=== PATIENT | male | born 1985 | race African-American/Black ===

== ENCOUNTER 2022-05-09 10:04 | Inpatient (IN) ==
[2022-05-09] MEDS ORDERED: cefTRIAXone SODIUM 2,000 MG/70 ML BAG IV STA (10:47)
--- NOTE | 2022-05-09 10:47 | Emergency Department Note ---
Impression & Plan Preseptal cellulitis, Facial cellulitis, Abscess of face, Leukopenia ED Provider Note NAME: BRETT MC AGE: 36 SEX: M : 1985 ARRIVES VIA: Walk-In INFORMANT: Patient ED PROVIDER(S): Christopher Richey DO CHIEF COMPLAINT: facial swelling HPI: Patient is a 36-year-old male who presents to the ER for swelling under his right eye which has been present for the past 2 days. He notes it is red and tender. He notes he has a 2 cm by about 3 cm area of numbness right under that which feels a little bit different. He also has some on his left trapezius as well as by his sternocleidomastoid. Denies any focal weakness of his arms or legs. No chest pain or shortness of breath. He notes he feels very tired. He has had this once before in the past and was on antibiotics. No other exacerbating or remitting factors. PAST MEDICAL HISTORY:See Below PAST SURGICAL HISTORY:See Below FAMILY HISTORY:See Below SOCIAL HISTORY:See Below HOME MEDICATIONS:See Below ALLERGIES:See Below VITALS:See Below PHYSICAL EXAMINATION: GENERAL: Sitting up in bed, alert, well appearing, well nourished, no distress, non-toxic EYE EXAM: normal conjunctiva. PERRL and EOM's grossly intact. OROPHARYNX: mucous membranes are moist NECK: supple, no nuchal rigidity, no adenopathy, non-tender LUNGS: Clear to auscultation. Normal chest wall mechanics HEART: no murmurs, S1 normal and S2 normal ABDOMEN: abdomen soft, non-tender, normo-active bowel sounds, no masses, no rebound or guarding. UPPER EXTREMITIES: upper extremities are grossly normal. LOWER EXTREMITIES: No pitting edema. NEURO EXAM: Normal sensorium, cranial nerves II-XII intact, normal speech, no weakness of arms, no weakness of legs. No drift. Finger to nose intact. Gross sensation intact. MEDICAL DECISION MAKING: [Patient is a 36-year-old male who presents the ER for erythema and swelling under and around his right eye. Is been present for the past several days. He was referred in by the shelter. External records were reviewed. IV was established. Labs show a mild leukopenia at 4.6. No significant anemia. INR unremarkable. BMP along with LFTs bilirubin and troponin was negative. CT shows a preseptal cellulitis in combination with a abscess of the maxilla. This was discussed with Dr. Valencia who is agreeable to seeing the patient as an inpatient. Patient was given IV fluids and IV Zosyn. Discussed with Dr. Shoemaker for further management and treatment. Patient was updated bedside. Discussed with the guards as well. Patient was also given IV fluids and IV Toradol. Triage Nursing notes reviewed. Limited review of prior medical records performed Vital Signs: reviewed and remarkable for no significant abnormalities Differential diagnosis: Differential Diagnosis includes but is not limited to ischemic Stroke, hemorrhagic stroke, bells palsy, mass, neoplasm, migraine headache, seizure, subarachnoid hemorrhage, TIA, and transient global amnesia. ER treatment provided: See below Diagnostics interpreted by me include EKG and cardiac monitoring as listed below: -Cardiac Monitoring: An order was placed for continuous cardiac monitoring. The monitor shows a rate of 90 with sinus rhythm. -ECG: none -Laboratory studies:Interpreted by me as stated above in MDM and shown below. Imaging studies: Xrays: As interpreted by me:none CTs show: CT of the face, as well as angios of the head and neck shows a preseptal cellulitis in combination with a abscess in the maxilla Consultation(s): As described in MDM Procedures:none Critical Care: None Past Med/Surg History Medical History Active intravenous drug use Surgical History No history of previous surgery Social History Smoking Status: Never smoker Preferred Language: Pashto Feels Safe at Home: Yes Allergies Allergies Allergy/AdvReac Type Severity Reaction Status Date / Time No Known Allergies Allergy Verified 07/02/21 22:00 Home Meds Home Medications Medication Instructions Recorded Confirmed No Known Home Medications 01/20/22 01/20/22 Results & Data (ED) Vital Signs Vital Signs - 24 hr 05/09/22 10:10 05/09/22 14:00 Temperature 36.8 C Temperature Source Temporal Artery Scan Pulse Rate 91 H Pulse Rate [Right Finger] 73 Pulse Rhythm Regular Pulse Rhythm [Right Finger] Regular Pulse Strength [Right Finger] Normal Respiratory Rate 20 16 Respiratory Effort / Characteristics Non-Labored Spontaneous Non-Labored Respiratory Depth Normal Normal Respiratory Pattern Regular Regular Blood Pressure 138/86 Blood Pressure [Right Arm] 115/80 Blood Pressure Mean 103 Blood Pressure Mean [Right Arm] 91 Blood Pressure Position [Right Arm] Lying Pulse Oximetry 97 99 Oxygen Delivery Method Room Air Room Air Sepsis Recent Fever Within 48 Hours No Sepsis New/Unexplained Change in Mental Status No Sepsis Action Taken by Nursing No Action Required Laboratory Data 05/09/22 11:21 05/09/22 11:21 Lab Results 05/09/22 05/09/22 05/09/22 Range/Units 11:21 11:21 11:21 WBC 4.63 L (4.8-10.8) K/ul RBC 4.81 (4.70-6.10) M/uL Hgb 13.9 L (14.0-18.0) g/dl Hct 39.5 L (42.0-52.0) % MCV 82.1 (80.0-100.0) fL MCH 28.9 (25.0-34.0) pg MCHC 35.2 (32.0-36.0) g/dL RDW Std Deviation 41.0 (36.4-46.3) fL RDW Coeff of Jay Jay 13.7 (11.5-14.5) % Plt Count 188 (130-400) K/uL MPV 9.1 L (9.4-12.4) fL Immature Gran % (Auto) 0.2 % Neut % (Auto) 67.8 % Lymph % (Auto) 19.0 % Ramsey % (Auto) 10.2 % Eos % (Auto) 2.4 % Baso % (Auto) 0.4 % Neut # (Auto) 3.14 (1.40-6.50) K/uL Lymph # (Auto) 0.88 L (1.2-3.4) K/uL Ramsey # (Auto) 0.47 (0.11-0.59) K/uL Eos # (Auto) 0.11 (0-0.50) K/uL Baso # (Auto) 0.02 (0-0.2) K/uL Immature Gran # (Auto) 0.01 (0.01-0.20) K/uL PT 11.3 (9.0-12.0) Seconds INR 1.1 (0.9-1.1) APTT 26.6 (21.0-31.0) Seconds PTT Ratio 1.0 Sodium 138 (136-145) mmol/L Potassium 3.9 (3.5-5.1) mmol/L Chloride 104 (98-107) mmol/L Carbon Dioxide 28 (21-32) mmol/L Anion Gap 6 (3-11) BUN 19 (6-23) mg/dl Creatinine 1.03 (0.6-1.4) mg/dl Est Cr Clr Drug Dosing 87.9 ml/min Est GFR ( Amer) 109.3 ml/min Est GFR (Non-Af Amer) 94.3 ml/min BUN/Creatinine Ratio 18.4 (10-20) Glucose 67 L (70-99(Fasting)) mg/dl Calcium 9.7 (8.6-10.3) mg/dl Magnesium 2.0 (1.7-2.4) mg/dl Total Bilirubin 0.8 (0.2-1.0) mg/dl AST 20 (13-39) U/L ALT 20 (7-52) U/L Alkaline Phosphatase 72 (34-104) U/L Troponin I High Sens 2.9 (0-20) pg/ml Total Protein 7.5 (6.0-8.3) gm/dl Albumin 4.5 (3.4-5.0) gm/dl Globulin 3.0 (2.5-4.0) gm/dl Albumin/Globulin Ratio 1.5 (0.9-2) Administered Medications Discontinued Medications Ceftriaxone Sodium (Rocephin) 2,000 mg in 70 mls @ 140 mls/hr IV NOW STA Stop: 05/09/22 11:16 Last Infusion: 05/09/22 12:37 Dose: 0 mls/hr Documented By: Admin: 05/09/22 12:06 Dose: 140 mls/hr Documented By: TAO Piperacillin Sod/Tazobactam Sod (Zosyn) 4.5 gm in 120 mls @ 240 mls/hr IV NOW ONE Stop: 05/09/22 14:39 Last Admin: 05/09/22 14:24 Dose: 240 mls/hr Documented By: SHARON Ioversol (Optiray 320 500ml) 89 ml IV ONCE ONE Stop: 05/09/22 13:21 Last Admin: 05/09/22 13:21 Dose: 89 ml Documented By: YESICA Imaging Data Radiologist's Impression: Face CT 05/09/22 10:43 CT SCAN OF THE FACIAL BONES WITH IV CONTRAST CLINICAL HISTORY: Eye swelling. COMPARISON STUDY: No priors. TECHNIQUE: High-resolution CT scan of the facial bones is performed following the IV administration of 89 cc of Optiray 320. Images are reviewed in the axial, sagittal, and coronal planes. IV contrast was administered without complication. A dose lowering technique was utilized adhering to the principles of ALARA. FINDINGS: The skeletal structures are well mineralized. There is no evidence of facial bone fracture. The bony orbits are intact and the orbital contents are within normal limits. There is periorbital soft tissue edema seen bilaterally. No organized fluid collection is seen to indicate abscess. The zygomatic arches, nasal bones, and pterygoid plates are preserved. The maxilla and mandible are intact. There are no layering blood products within the paranasal sinuses. There is mild mucosal thickening within the maxillary antra. The remaining paranasal sinuses are clear. The mastoid air cells are well pneumatized. The visualized calvarium and upper cervical spine are maintained. Partially imaged brain parenchyma is within normal limits. There are numerous dental caries. Numerous periapical lucencies are present in both the maxilla and mandible. Several of these demonstrate overlying cortical breakthrough. Superficial and deep soft tissue tissue edema overlying the maxilla and mandible is consistent with cellulitis. A 10 mm periodontal abscess is seen superficial to the right maxilla on axial image #69. IMPRESSION: 1. No acute facial bone abnormality is seen. 2. Periorbital soft tissue edema seen bilaterally and suggests cellulitis. Correlate clinically. No periorbital fluid collection is seen to indicate abscess. 3. Severe periodontal disease as above with numerous dental caries and periapical lucencies. Several of these show overlying cortical breakthrough. Follow up with dentistry is recommended. 4. Significant cellulitis is seen overlying both the mandible and maxilla, with a 10 mm periodontal abscess overlying the right maxilla. 5. The bony orbits are intact and intraorbital contents are normal in appearance. ACT 112: Negative or not required by law. Electronically signed by: Yoel Panda M.D. 05/09/2022 2:[address] 05/09/22 10:[address] OF THE BRAIN; CT ANGIOGRAM OF THE BRAIN; CT ANGIOGRAM OF THE NECK CLINICAL HISTORY: Neurological deficit. Stroke like symptoms. COMPARISON STUDY: No priors. TECHNIQUE: Unenhanced axial CT scan of the brain is performed. Subsequently, following the IV administration of 89 of Optiray 320, CT angiogram of the head and neck was performed from the aortic arch to the vertex. Images are reviewed in the axial, sagittal, and coronal planes. 3-D MIPS images are created and assessed. IV contrast was administered without complication. All measurements were calculated based on NASCET criteria. A dose lowering technique was utilized adhering to the principles of ALARA. CT DOSE: 998.79 mGy.cm FINDINGS: Brain parenchyma: The brain parenchyma is normal in appearance. There is no hemorrhage, mass effect, or evidence of acute territorial ischemia by CT criteria. There is no evidence of enhancing mass lesion on the angiogram phase images. The ventricles, sulci, and cisterns are normal in configuration. Arshad- white matter differentiation is preserved. No extra-axial fluid collection is seen. Thoracic aorta: Visualized portions of the thoracic aorta are normal in caliber. The aortic arch demonstrates standard 3-vessel anatomy. Right carotid arterial system: The right common carotid artery is widely patent, as are the right internal and external carotid arteries. Left carotid arterial system: The left common carotid artery is widely patent, as are the left internal and external carotid arteries. Vertebral arteries: The vertebral arteries are widely patent bilaterally noting mild left-sided dominance. A focal fenestration is noted in the right vertebral artery at the level of C4 on image #215. No dissection is seen. Subclavian arteries: Widely patent bilaterally. Intracranial vasculature: The internal carotid arteries are patent at the skull base, as are the anterior and middle cerebral arteries bilaterally. The vertebro basilar system and posterior cerebral arteries are widely patent. The left vertebral artery is dominant. There are small bilateral posterior communicating arteries. There is no aneurysm, high-grade stenosis, or focal vessel cut off seen throughout the intracranial circulation. Jugular veins: Patent bilaterally. Dural sinuses: Patent. Lung apices: Partially visualized upper lobe lung parenchyma appears clear. Soft tissues: The visualized pharyngeal soft tissues are normal in appearance noting angiographic phase technique. The oropharyngeal airway appears widely patent. The salivary and thyroid glands are normal in appearance. No cervical lymphadenopathy is seen. Skeletal structures: The calvarium appears intact. The cervical spine is within normal limits. Orbits: The bony orbits are intact. Orbital contents are normal as visualized. Sinuses and mastoids: There is mild mucosal thickening within the maxillary antra. The remaining paranasal sinuses are clear. The mastoid air cells are well pneumatized. IMPRESSION: 1. There is no hemorrhage, mass effect, or evidence of acute territorial ischemia by CT criteria. 2. Unremarkable CT angiogram of the brain. 3. Unremarkable CT angiogram of the neck. ACT 112: Negative or not required by law. Electronically signed by: Yoel Panda M.D. 05/09/2022 1:41 PM Head CTA 05/09/22 10:[address] OF THE BRAIN; CT ANGIOGRAM OF THE BRAIN; CT ANGIOGRAM OF THE NECK CLINICAL HISTORY: Neurological deficit. Stroke like symptoms. COMPARISON STUDY: No priors. TECHNIQUE: Unenhanced axial CT scan of the brain is performed. Subsequently, following the IV administration of 89 of Optiray 320, CT angiogram of the head and neck was performed from the aortic arch to the vertex. Images are reviewed in the axial, sagittal, and coronal planes. 3-D MIPS images are created and assessed. IV contrast was administered without complication. All measurements were calculated based on NASCET criteria. A dose lowering technique was utilized adhering to the principles of ALARA. CT DOSE: 998.79 mGy.cm FINDINGS: Brain parenchyma: The brain parenchyma is normal in appearance. There is no hemorrhage, mass effect, or evidence of acute territorial ischemia by CT criteria. There is no evidence of enhancing mass lesion on the angiogram phase images. The ventricles, sulci, and cisterns are normal in configuration. Arshad- white matter differentiation is preserved. No extra-axial fluid collection is seen. Thoracic aorta: Visualized portions of the thoracic aorta are normal in caliber. The aortic arch demonstrates standard 3-vessel anatomy. Right carotid arterial system: The right common carotid artery is widely patent, as are the right internal and external carotid arteries. Left carotid arterial system: The left common carotid artery is widely patent, as are the left internal and external carotid arteries. Vertebral arteries: The vertebral arteries are widely patent bilaterally noting mild left-sided dominance. A focal fenestration is noted in the right vertebral artery at the level of C4 on image #215. No dissection is seen. Subclavian arteries: Widely patent bilaterally. Intracranial vasculature: The internal carotid arteries are patent at the skull base, as are the anterior and middle cerebral arteries bilaterally. The vertebrobasilar system and posterior cerebral arteries are widely patent. The left vertebral artery is dominant. There are small bilateral posterior communicating arteries. There is no aneurysm, high-grade stenosis, or focal vessel cut off seen throughout the intracranial circulation. Jugular veins: Patent bilaterally. Dural sinuses: Patent. Lung apices: Partially visualized upper lobe lung parenchyma appears clear. Soft tissues: The visualized pharyngeal soft tissues are normal in appearance noting angiographic phase technique. The oropharyngeal airway appears widely patent. The salivary and thyroid glands are normal in appearance. No cervical lymphadenopathy is seen. Skeletal structures: The calvarium appears intact. The cervical spine is within normal limits. Orbits: The bony orbits are intact. Orbital contents are normal as visualized. Sinuses and mastoids: There is mild mucosal thickening within the maxillary antra. The remaining paranasal sinuses are clear. The mastoid air cells are well pneumatized. IMPRESSION: 1. There is no hemorrhage, mass effect, or evidence of acute territorial ischemia by CT criteria. 2. Unremarkable CT angiogram of the brain. 3. Unremarkable CT angiogram of the neck. ACT 112: Negative or not required by law. Electronically signed by: Yoel Panda M.D. 05/09/2022 1:41 PM Neck CTA 05/09/22 10:[address] OF THE BRAIN; CT ANGIOGRAM OF THE BRAIN; CT ANGIOGRAM OF THE NECK CLINICAL HISTORY: Neurological deficit. Stroke like symptoms. COMPARISON STUDY: No priors. TECHNIQUE: Unenhanced axial CT scan of the brain is performed. Subsequently, following the IV administration of 89 of Optiray 320, CT angiogram of the head and neck was performed from the aortic arch to the vertex. Images are reviewed in the axial, sagittal, and coronal planes. 3-D MIPS images are created and assessed. IV contrast was administered without complication. All measurements were calculated based on NASCET criteria. A dose lowering technique was utilized adhering to the principles of ALARA. CT DOSE: 998.79 mGy.cm FINDINGS: Brain parenchyma: The brain parenchyma is normal in appearance. There is no hemorrhage, mass effect, or evidence of acute territorial ischemia by CT cri teria. There is no evidence of enhancing mass lesion on the angiogram phase images. The ventricles, sulci, and cisterns are normal in configuration. Arshad- white matter differentiation is preserved. No extra-axial fluid collection is seen. Thoracic aorta: Visualized portions of the thoracic aorta are normal in caliber. The aortic arch demonstrates standard 3-vessel anatomy. Right carotid arterial system: The right common carotid artery is widely patent, as are the right internal and external carotid arteries. Left carotid arterial system: The left common carotid artery is widely patent, as are the left internal and external carotid arteries. Vertebral arteries: The vertebral arteries are widely patent bilaterally noting mild left-sided dominance. A focal fenestration is noted in the right vertebral artery at the level of C4 on image #215. No dissection is seen. Subclavian arteries: Widely patent bilaterally. Intracranial vasculature: The internal carotid arteries are patent at the skull base, as are the anterior and middle cerebral arteries bilaterally. The vertebrobasilar system and posterior cerebral arteries are widely patent. The left vertebral artery is dominant. There are small bilateral posterior communicating arteries. There is no aneurysm, high-grade stenosis, or focal vessel cut off seen throughout the intracranial circulation. Jugular veins: Patent bilaterally. Dural sinuses: Patent. Lung apices: Partially visualized upper lobe lung parenchyma appears clear. Soft tissues: The visualized pharyngeal soft tissues are normal in appearance noting angiographic phase technique. The oropharyngeal airway appears widely patent. The salivary and thyroid glands are normal in appearance. No cervical lymphadenopathy is seen. Skeletal structures: The calvarium appears intact. The cervical spine is within normal limits. Orbits: The bony orbits are intact. Orbital contents are normal as visualized. Sinuses and mastoids: There is mild mucosal thickening within the maxillary antra. The remaining paranasal sinuses are clear. The mastoid air cells are well pneumatized. IMPRESSION: 1. There is no hemorrhage, mass effect, or evidence of acute territorial ischemia by CT criteria. 2. Unremarkable CT angiogram of the brain. 3. Unremarkable CT angiogram of the neck. ACT 112: Negative or not required by law. Electronically signed by: Yoel Panda M.D. 05/09/2022 1:41 PM Discharge Plan Visit Data Chief Complaint: Acosta's Palsy Symptoms Stated Complaint: RIGHTSIDE NUMBNESS,LOSS OF BLANCE, ARM NUMBNESS ED Provider: Christopher Richey Discharge Problem: Preseptal cellulitis, Facial cellulitis, Abscess of face, Leukopenia Forms Stand Alone Forms: [facility] Prescriptions Prescriptions: No Action No Known Home Medications Referrals Referrals: PCP,NO [Physician] -
[2022-05-09 12:02] LABS: Basophils # (auto) 0.02 K/uL (0-0.2); Basophils % (auto) 0.4 %; Eosinophils # (auto) 0.11 K/uL (0-0.50); Eosinophils % (auto) 2.4 %; Hematocrit (blood only) 39.5 % (42.0-52.0); Hemoglobin 13.9 g/dl (14.0-18.0); Immature Granulocytes # (auto) 0.01 K/uL (0.01-0.20); Immature Granulocytes % (auto) 0.2 %; Lymphocytes # (auto) 0.88 K/uL (1.2-3.4); Mean Corpuscular Hemoglobin 28.9 pg (25.0-34.0); Mean Corpuscular Hgb Conc 35.2 g/dL (32.0-36.0); Mean Corpuscular Volume 82.1 fL (80.0-100.0); Mean Platelet Volume 9.1 fL (9.4-12.4); Monocytes # (auto) 0.47 K/uL (0.11-0.59); Monocytes % (auto) 10.2 %; Neutrophils # (auto) 3.14 K/uL (1.40-6.50); Neutrophils % (auto) 67.8 %; Platelet Count 188 K/uL (130-400); RDW Coefficient of Variation 13.7 % (11.5-14.5); Red Blood Count 4.81 M/uL (4.70-6.10); White Blood Count 4.63 K/ul (4.8-10.8)
[2022-05-09 12:13] LABS: INR 1.1 (0.9-1.1); Partial Thromboplastin Time 26.6 Seconds (21.0-31.0); Prothrombin Time 11.3 Seconds (9.0-12.0)
--- NOTE | 2022-05-09 12:18 | Electrocardiogram Report ---
Test Reason : Blood Pressure : / mmHG Vent. Rate : 088 BPM Atrial Rate : 088 BPM P-R Int : 156 ms QRS Dur : 088 ms QT Int : 336 ms P-R-T Axes : 043 063 022 degrees QTc Int : 406 ms Normal sinus rhythm Normal ECG No previous ECGs available Confirmed by Thony Leonardo ([id number]) on 05/09/2022 12:18:06 PM Referred By: [facility] Confirmed By:Thony Leonardo
[2022-05-09 12:27] LABS: Troponin I High Sensitivity 2.9 pg/ml (0-20)
[2022-05-09 12:28] LABS: Albumin Level 4.5 gm/dl (3.4-5.0); Bilirubin,Total 0.8 mg/dl (0.2-1.0); Calcium 9.7 mg/dl (8.6-10.3); Potassium 3.9 mmol/L (3.5-5.1)
[2022-05-09 12:34] LABS: Albumin Globulin Ratio 1.5 (0.9-2); BUN Creatinine Ratio 18.4 (10-20); Creatinine Clr Calc Pharmacy 87.9 ml/min; Est GFR (African American) 109.3 ml/min; Est GFR (Non-African American) 94.3 ml/min; Total Protein 7.5 gm/dl (6.0-8.3)
[2022-05-09] MEDS ORDERED: OPTIRAY 320 500ml IV ONE (13:20)
--- NOTE | 2022-05-09 13:43 | CT Scan Report ---
UNENHANCED CT OF THE BRAIN; CT ANGIOGRAM OF THE BRAIN; CT ANGIOGRAM OF THE NECK CLINICAL HISTORY: Neurological deficit. Stroke like symptoms. COMPARISON STUDY: No priors. TECHNIQUE: Unenhanced axial CT scan of the brain is performed. Subsequently, following the IV adminis tration of 89 of Optiray 320, CT angiogram of the head and neck was performed from the aortic arch to the vertex. Images are reviewed in the axial, sagittal, and coronal planes. 3-D MIPS images are crea mj and assessed. IV contrast was administered without complication. All measurements were calculated based on NASCET criteria. A dose lowering technique was utilized adhering to the principles of CODIE [place]. CT DOSE: 998.79 mGy.cm FINDINGS: Brain parenchyma: The brain parenchyma is normal in appearance. There is no hemorrhage, mass effect, or evidence of acute territorial ischemia by CT criteria. There is no evidence of enhancing mass lesi on on the angiogram phase images. The ventricles, sulci, and cisterns are normal in configuration. Gr ay-white matter differentiation is preserved. No extra-axial fluid collection is seen. Thoracic aorta: Visualized portions of the thoracic aorta are normal in caliber. The aortic arch demo nstrates standard 3-vessel anatomy. Right carotid arterial system: The right common carotid artery is widely patent, as are the right int ernal and external carotid arteries. Left carotid arterial system: The left common carotid artery is widely patent, as are the left technical support internship al and external carotid arteries. Vertebral arteries: The vertebral arteries are widely patent bilaterally noting mild left-sided domin ance. A focal fenestration is noted in the right vertebral artery at the level of C4 on image #215. N o dissection is seen. Subclavian arteries: Widely patent bilaterally. Intracranial vasculature: The internal carotid arteries are patent at the skull base, as are the ante rior and middle cerebral arteries bilaterally. The vertebrobasilar system and posterior cerebral cade tabby are widely patent. The left vertebral artery is dominant. There are small bilateral posterior co mmunicating arteries. There is no aneurysm, high-grade stenosis, or focal vessel cut off seen through out the intracranial circulation. Jugular veins: Patent bilaterally. Dural sinuses: Patent. Lung apices: Partially visualized upper lobe lung parenchyma appears clear. Soft tissues: The visualized pharyngeal soft tissues are normal in appearance noting angiographic pha se technique. The oropharyngeal airway appears widely patent. The salivary and thyroid glands are nor mal in appearance. No cervical lymphadenopathy is seen. Skeletal structures: The calvarium appears intact. The cervical spine is within normal limits. Orbits: The bony orbits are intact. Orbital contents are normal as visualized. Sinuses and mastoids: There is mild mucosal thickening within the maxillary antra. The remaining para nasal sinuses are clear. The mastoid air cells are well pneumatized. IMPRESSION: 1. There is no hemorrhage, mass effect, or evidence of acute territorial ischemia by CT criteria. 2. Unremarkable CT angiogram of the brain. 3. Unremarkable CT angiogram of the neck. ACT 112: Negative or not required by law. Electronically signed by: Yoel Panda M.D. 05/09/2022 1:41 PM
--- NOTE | 2022-05-09 14:03 | CT Scan Report ---
CT SCAN OF THE FACIAL BONES WITH IV CONTRAST CLINICAL HISTORY: Eye swelling. COMPARISON STUDY: No priors. TECHNIQUE: High-resolution CT scan of the facial bones is performed following the IV administration of 89 cc of Optiray 320. Images are reviewed in the axial, sagittal, and coronal planes. IV contrast was administered without complication. A dose lowering technique was utilized adhering to the princi ples of ALARA. FINDINGS: The skeletal structures are well mineralized. There is no evidence of facial bone fracture. The bony orbits are intact and the orbital contents are within normal limits. There is periorbital s oft tissue edema seen bilaterally. No organized fluid collection is seen to indicate abscess. The zyg omatic arches, nasal bones, and pterygoid plates are preserved. The maxilla and mandible are intact. There are no layering blood products within the paranasal sinuses. There is mild mucosal thickening w ithin the maxillary antra. The remaining paranasal sinuses are clear. The mastoid air cells are well pneumatized. The visualized calvarium and upper cervical spine are maintained. Partially imaged brain parenchyma is within normal limits. There are numerous dental caries. Numerous periapical lucencies are present in both the maxilla and mandible. Several of these demonstrate overlying cortical breakth rough. Superficial and deep soft tissue tissue edema overlying the maxilla and mandible is consistent with cellulitis. A 10 mm periodontal abscess is seen superficial to the right maxilla on axial image #69. IMPRESSION: 1. No acute facial bone abnormality is seen. 2. Periorbital soft tissue edema seen bilaterally and suggests cellulitis. Correlate clinically. No p eriorbital fluid collection is seen to indicate abscess. 3. Severe periodontal disease as above with numerous dental caries and periapical lucencies. Several of these show overlying cortical breakthrough. Follow up with dentistry is recommended. 4. Significant cellulitis is seen overlying both the mandible and maxilla, with a 10 mm periodontal a bscess overlying the right maxilla. 5. The bony orbits are intact and intraorbital contents are normal in appearance. ACT 112: Negative or not required by law. Electronically signed by: Yoel Panda M.D. 05/09/2022 2:02 PM
[2022-05-09] MEDS ORDERED: PIPERACILLIN/TAZOBACTAM 4.5 GM/120 ML BAG IV ONE (14:10)
--- NOTE | 2022-05-09 14:32 | History & Physical Report ---
Date of Service May 09, 2022 Assessment & Plan (1) Preseptal cellulitis: Plan: Preseptal/periorbital cellulitis; maxillary abscess 2 days of facial swelling and warmth Poor dentition - CTA of the head and neck: No acute findings. Unremarkable angiograms. - CTface: No bony abnormality. Periorbital soft tissue edema suggesting cellulitis, no fluid collection. Severe periodontal disease, numerous dental caries with cortical breakthrough. Mandibular and maxillary cellulitis with periodontal abscess overlying right maxilla. Bony orbits normal. OMFS Dr. Valencia consulted for fluid management/drainage History of HIV but with normal counts and undetectable levels at last check in half-way per patient Continue Zosyn - Patient denies history of cardiac disease, lung disease, renal disease. No history of stroke/CVA. (2) HIV (human immunodeficiency virus infection): Plan: HIV Per patient has viral levels checked periodically as outpatient, have been undetectable Lymphocyte count 0.88, mildly leukopenic on admit Continue Biktarvy (3) Schizoaffective disorder: Plan: Schizoaffective disorder Reportedly well controlled with Remeron nightly, sertraline 50 mg, venlafaxine 50 mg daily. Continue DVT prophylaxis: Pharmacal prophylaxis held pending surgical evaluation, SCDs Diet: N.p.o., IVF M 120 cc/h Disposition: Medical/surgical CODE STATUS: Full code History of Present Illness Primary Care Provider: [facility] Denis is a 36-year-old male with facial swelling x2 days. CTA of the head and neck: No acute findings. Unremarkable angiograms. CTface: No bony abnormality. Periorbital soft tissue edema suggesting cellulitis, no fluid collection. Severe periodontal disease, numerous dental caries with cortical breakthrough. Mandibular and maxillary cellulitis with periodontal abscess overlying right maxilla. Bony orbits normal. Patient seen at the bedside. He reports he takes Zoloft and another medicine for mood/schizoaffective disorder, and Biktarvy for HIV which she is told is undetectable with no count abnormalities. He has had 2 days of worsening cellulitis on his cheek underlying the right eye. No problems with pain or swelling prior to this. He does not have any dental pain. He has not had any foul purulent taste or production from his teeth. No wheezing. No fever, chills, sweats. No photosensitivity. No vision change. Denies other recent infections. Denies URI symptoms. No pain on extraocular movements. He does not use cigarettes or alcohol, is an inmate. Denies chest pain, chest pressure, shortness of breath, difficulty breathing, syncope, pres yncope. Did not improve on 2 days of clindamycin. Denies other attempted treatments. Medical History: Reviewed Medications: Reviewed Surgical History: Reviewed Family history: Reviewed Allergies: Reviewed Social History: Reviewed Code Status: Full code Allergies Allergy/AdvReac Type Severity Reaction Status Date / Time quetiapine [From Seroquel] Allergy Unknown ON MED LIST Verified 05/09/22 15:10 trazodone Allergy Unknown ON MED LIST Verified 05/09/22 15:10 Home Medications Medication Instructions Recorded Confirmed Type bictegravir 50 mg-emtricitabine 1 tab PO DAILY 05/09/22 05/09/22 History 200 mg-tenofovir alafenam 25 mg tablet (Biktarvy) clindamycin HCl 150 mg capsule 300 mg PO TID 05/09/22 05/09/22 History ibuprofen 600 mg tablet 600 mg PO TID 05/09/22 05/09/22 History mirtazapine 15 mg tablet 15 mg PO HS 05/09/22 05/09/22 History ropinirole 0.5 mg tablet 0.5 mg PO HS 05/09/22 05/09/22 History sertraline 50 mg tablet 50 mg PO DAILY 05/09/22 05/09/22 History venlafaxine 150 mg 150 mg PO DAILY 05/09/22 05/09/22 History capsule,extended release 24 hr (Effexor XR) Past Med/Surg History Medical History (Updated 05/09/22 @ 15:25 by Dangelo Garcia MD) Active intravenous drug use HIV (human immunodeficiency virus infection) Schizoaffective disorder Surgical History No history of previous surgery Social History Smoking Status: Never smoker Preferred Language: [place] Feels Safe at Home: Yes Review of Systems Review of Systems: All systems reviewed & are unremarkable except as noted in HPI & below Physical Exam Physical Exam: General: A&Ox3. NAD. Cooperative. HEENT: Right infraorbital skin with warmth/erythema but no fluctuance. EOMs intact without pain. No photosensitivity. Vision/hearing intact. Very poor dentition, no obvious purulence at gums. Pulm: CTAB A&P. -wheezes, -rales, -rhonchi. Symmetrical chest rise. No increased work of breathing. No respiratory distress. Cardiac: RRR, -mrg. Radial pulses intact and symmetrical. Abdominal: Nontender, nondistended, soft. BS present. Extremities: Warm, dry. Results & Data Results & Data Vital Signs (Past 12 Hours) Vital Signs Temp Pulse Pulse Resp BP BP Pulse Ox 05/09/22 14:00 73 16 115/80 99 05/09/22 10:10 36.8 C 91 H 20 138/86 97 O2 Del Method 05/09/22 14:00 Room Air 05/09/22 10:10 Room Air PG Care Time/CCT Total # of Minutes Spent Total Time Spent with Patient: Total time spent is greater than 50% in coordination of care (as documented) at patient's floor/unit and/or counseling patient: Coding Level of Care Code 44669 INT INP/OBS CARE 3/75MIN Diagnoses Preseptal cellulitis L03.213 HIV (human immunodeficiency virus infection) B20 Schizoaffective disorder F25.9
[2022-05-09] MEDS ORDERED: KETOROLAC TROMETHAMINE 15 MG/ML VIAL IV ONE (14:44)
[2022-05-09] MEDS ORDERED: SODIUM CHLORIDE 0.9% 1000ML 1,000 ML IV ONE (14:44)
--- NOTE | 2022-05-09 16:38 | Oral/Maxillofacial Consult ---
Date of Consultation May 09, 2022 Assessment & Plan (1) Schizoaffective disorder: (2) HIV (human immunodeficiency virus infection): (3) Preseptal cellulitis: (4) Facial cellulitis: (5) Abscess of face: (6) Leukopenia: History of Present Illness History of Present Illness Preseptal/periorbital cellulitis; maxillary abscess 2 days of facial swelling and warmth Poor dentition - CTA of the head and neck: No acute findings. Unremarkable angiograms. - CTface: No bony abnormality. Periorbital soft tissue edema suggesting cellulitis, no fluid collection. Severe periodontal disease, numerous dental caries with cortical breakthrough. Mandibular and maxillary cellulitis with periodontal abscess overlying right maxilla. Bony orbits normal. OMFS Dr. Valencia consulted for fluid management/drainage History of HIV but with normal counts and undetectable levels at last check in halfway per patient Continue Zosyn - Patient denies history of cardiac disease, lung disease, renal disease. No history of stroke/CVA. (2) HIV (human immunodeficiency virus infection): Plan: HIV Per patient has viral levels checked periodically as outpatient, have been undetectable Lymphocyte count 0.88, mildly leukopenic on admit Continue Biktarvy (3) Schizoaffective disorder: Plan: Schizoaffective disorder Reportedly well controlled with Remeron nightly, sertraline 50 mg, venlafaxine 50 mg daily. Continue DVT prophylaxis: Pharmacal prophylaxis held pending surgical evaluation, SCDs Diet: N.p.o., IVF M 120 cc/h Disposition: Medical/surgical CODE STATUS: Full code History of Present Illness Primary Care Provider: [facility] Oral Maxillofacial Surgery Exam Present Complaint: Denis is a 36-year-old male with facial swelling x2 days. CTA of the head and neck: No acute findings. Unremarkable angiograms. CTface: No bony abnormality. Periorbital soft tissue edema suggesting cellulitis, no fluid collection. Severe periodontal disease, numerous dental caries with cortical breakthrough. Mandibular and maxillary cellulitis with periodontal abscess overlying right maxilla. Bony orbits normal. Patient seen at the bedside. He reports he takes Zoloft and another medicine for mood/schizoaffective disorder, and Biktarvy for HIV which she is told is undetectable with no count abnormalities. He has had 2 days of worsening cellulitis on his cheek underlying the right eye. No problems with pain or swelling prior to this. He does not have any dental pain. He has not had any foul purulent taste or production from his teeth. No wheezing. No fever, chills, sweats. No photosensitivity. No vision change. Denies other recent infections. Denies URI symptoms. No pain on extraocular movements. He does not use cigarettes or alcohol, is an inmate. Denies chest pain, chest pressure, shortness of breath, difficulty breathing, syncope, presyncope. Did not improve on 2 days of clindamycin. Denies other attempted treatments. Oral Exam: Finding--Poor dentition with carious, infected and abscessed teeth upper left maxillary alveolar ridge, tender gingival tissue with deep pocket formation.Teeth grossly infected and removal is clinical indicated. Many other fractured and carious teeth present. Infraorbital, lateral nasal and mucobuccal fold upper right side swelling w/o any fluctuance (see CT scan) No drainable pus at this time Imaging: CT SCAN OF THE FACIAL BONES WITH IV CONTRAST CLINICAL HISTORY: Eye swelling. FINDINGS: The skeletal structures are well mineralized. There is no evidence of facial bone fracture. The bony orbits are intact and the orbital contents are within normal limits. There is periorbital soft tissue edema seen bilaterally. No organized fluid collection is seen to indicate abscess. The zygomatic arches, nasal bones, and pterygoid plates are preserved. The maxilla and mandible are intact. There are no layering blood products within the paranasal sinuses. There is mild mucosal thickening within the maxillary antra. The remaining paranasal sinuses are clear. The mastoid air cells are well pneumatized. The visualized calvarium and upper cervical spine are maintained. Partially imaged brain parenchyma is within normal limits. There are numerous dental caries. Numerous periapical lucencies are present in both the maxilla and mandible. Several of these demonstrate overlying cortical breakthrough. Superficial and deep soft tissue tissue edema overlying the maxilla and mandible is consistent with cellulitis. A 10 mm periodontal abscess is seen superficial to the right maxilla on axial image #69. IMPRESSION: 1. No acute facial bone abnormality is seen. 2. Periorbital soft tissue edema seen bilaterally and suggests cellulitis. Correlate clinically. No periorbital fluid collection is seen to indicate abscess. 3. Severe periodontal disease as above with numerous dental caries and periapical lucencies. Several of these show overlying cortical breakthrough. Follow up with dentistry is recommended. 4. Significant cellulitis is seen overlying both the mandible and maxilla, with a 10 mm periodontal abscess overlying the right maxilla. 5. The bony orbits are intact and intraorbital contents are normal in appearance. Soft tissue: floor of the mouth, tongue, hard/soft palate, posterior pharyngeal area all with in normal limits, Slight tenderness upper right mucobuccal space Swollen infraorbital area right side Eye is all WNL except for the lower lid swelling-vision and EOM are intact. Oral Care: Overall oral care is very poor many carious, fractured and abscessed teeth and retained roots Occlusion: Class I TMJ exam: No pop, clicking, pain, good ROM, No history of TMJ injury or dysfunction Periodontal exam: Significant evidences of periodontal pathology. Head/Neck exam: Neck is supple, FROM, Able to extend and flex neck w/o difficulty, no masses, no abnormalities, no airway issues Treatment Plan: Admission for medical management with IVs and IV antibiotics. Once the area becomes fluctuant set up for I&D with extraction of the involved upper right teeth Set up with general anesthesia in hospital due to complexity of the procedure I reviewed the treatment plan with the patient Understanding was expressed. Time was given for questions regarding the surgery, risks and post op care. The following teeth are decayed and fractured and removal is indicated DEN: Risks discussed: Bleeding,Pain,swelling,infection, dry socket, delayed healing, nerve injury to face,lips,tongue,chin area which could be permanent (rare). TMJ, jaw stiffness, change in bite (rare), ear pain (referred). Sinus problems like fistula or infection. Need to leave a small root fragment in place to avoid injury to nerve or sinus. Relationship of wisdom teeth to nerve/sinus and risk of jaw fracture. will ultimately will need the extraction of many if not all the remaining teeth and need for partial or full dentures Surgery to be set up once the infection organizes to allow drainage of pus-at present just hard cellulitics w/o pus development. Allergies Allergy/AdvReac Type Severity Reaction Status Date / Time quetiapine [From Seroquel] Allergy Unknown ON MED LIST Verified 05/09/22 15:10 trazodone Allergy Unknown ON MED LIST Verified 05/09/22 15:10 Home Medications Medication Instructions Recorded Confirmed Type bictegravir 50 mg-emtricitabine 1 tab PO DAILY 05/09/22 05/09/22 History 200 mg-tenofovir alafenam 25 mg tablet (Biktarvy) clindamycin HCl 150 mg capsule 300 mg PO TID 05/09/22 05/09/22 History ibuprofen 600 mg tablet 600 mg PO TID 05/09/22 05/09/22 History mirtazapine 15 mg tablet 15 mg PO HS 05/09/22 05/09/22 History ropinirole 0.5 mg tablet 0.5 mg PO HS 05/09/22 05/09/22 History sertraline 50 mg tablet 50 mg PO DAILY 05/09/22 05/09/22 History venlafaxine 150 mg 150 mg PO DAILY 05/09/22 05/09/22 History capsule,extended release 24 hr (Effexor XR) Patient History Medical History Active intravenous drug use HIV (human immunodeficiency virus infection) Schizoaffective disorder Surgical History No history of previous surgery Social History Smoking Status: Never smoker Preferred Language: [place] Feels Safe at Home: Yes Results & Data Vital Signs (Past 12 Hours) Vital Signs Temp Pulse Pulse Resp BP BP Pulse Ox 05/09/22 15:44 82 16 130/89 98 05/09/22 14:00 73 16 115/80 99 05/09/22 10:10 36.8 C 91 H 20 138/86 97 O2 Del Method 05/09/22 15:44 Room Air 05/09/22 14:00 Room Air 05/09/22 10:10 Room Air PG Care Time/CCT Total # of Minutes Spent Total Time Spent with Patient: Total time spent is greater than 50% in coordination of care (as documented) at patient's floor/unit and/or counseling patient: Coding Level of Care Code 57993 IN/OBS CONSULT LVL 3,45M Diagnoses Schizoaffective disorder F25.1 Schizoaffective disorder type: depressive HIV (human immunodeficiency virus infection) Z21 HIV symptom status: asymptomatic, with no history of HIV-related illness Preseptal cellulitis L03.213 Facial cellulitis L03.211 Abscess of face L02.01 Leukopenia D72.819 (1) Schizoaffective disorder Schizoaffective disorder type: depressive Qualified Code(s): F25.1 - Schizoaffective disorder, depressive type (2) HIV (human immunodeficiency virus infection) HIV symptom status: asymptomatic, with no history of HIV-related illness Qualified Code(s): Z21 - Asymptomatic human immunodeficiency virus [HIV] infection status
[2022-05-09] MEDS ORDERED: ACETAMINOPHEN 325 MG TAB PO PRN (17:57)
[2022-05-09] MEDS: NSS + 20MEQ KCL 20 MEQ/1,000 ML BAG IV SCH (18:25)
[2022-05-09] MEDS: PIPERACILLIN/TAZOBACTAM 3.375 GM in DEXTROSE 5% 100 ML IV SCH (18:27)
[2022-05-09] MEDS ORDERED: CLINDAMYCIN 150MG HOME PACK PO SCH (21:00)
[2022-05-09] MEDS: rOPINIRole HCL 0.25 MG TABLET PO SCH (21:04)
[2022-05-09] MEDS: MIRTAZAPINE TAB 15 MG TAB PO SCH (21:04)
[2022-05-10] MEDS: PIPERACILLIN/TAZOBACTAM 3.375 GM in DEXTROSE 5% 100 ML IV SCH ×3 (02:13→18:55)
[2022-05-10] MEDS: NSS + 20MEQ KCL 20 MEQ/1,000 ML BAG IV SCH ×3 (02:13→18:55)
[2022-05-10 07:57] LABS: Basophils # (auto) 0.03 K/uL (0-0.2); Basophils % (auto) 0.7 %; Eosinophils # (auto) 0.11 K/uL (0-0.50); Eosinophils % (auto) 2.7 %; Hematocrit (blood only) 35.9 % (42.0-52.0); Hemoglobin 12.5 g/dl (14.0-18.0); Immature Granulocytes # (auto) 0.01 K/uL (0.01-0.20); Immature Granulocytes % (auto) 0.2 %; Lymphocytes # (auto) 0.83 K/uL (1.2-3.4); Lymphocytes % (auto) 20.4 %; Mean Corpuscular Hemoglobin 28.7 pg (25.0-34.0); Mean Corpuscular Hgb Conc 34.8 g/dL (32.0-36.0); Mean Corpuscular Volume 82.5 fL (80.0-100.0); Mean Platelet Volume 9.4 fL (9.4-12.4); Monocytes # (auto) 0.44 K/uL (0.11-0.59); Monocytes % (auto) 10.8 %; Neutrophils # (auto) 2.65 K/uL (1.40-6.50); Neutrophils % (auto) 65.2 %; Platelet Count 177 K/uL (130-400); RDW Coefficient of Variation 13.6 % (11.5-14.5); RDW Standard Deviation 41.1 fL (36.4-46.3); Red Blood Count 4.35 M/uL (4.70-6.10); White Blood Count 4.07 K/ul (4.8-10.8)
--- NOTE | 2022-05-10 07:58 | Hospitalist Progress Note ---
Date of Service May 10, 2022 Assessment & Plan (1) Abscess of face: Plan: 36yo Male with PMH HIV schizoaffective disorder here for perioral cellulitis and dental abscess. Preseptal/periorbital cellulitis; maxillary abscess 2 days of facial swelling and warmth, notable poor dentation - CTA of the head and neck: No acute findings. Unremarkable angiograms. - CTface: No bony abnormality. Periorbital soft tissue edema suggesting cellulitis, no fluid collection. Severe periodontal disease, numerous dental caries with cortical breakthrough. Mandibular and maxillary cellulitis with periodontal abscess overlying right maxilla. Bony orbits normal. OMFS Dr. Valencia consulted, possible procedure tomorrow, NPO midnight started on Zosyn - pain management with tylenol, toradol (2) HIV (human immunodeficiency virus infection): HIV Per patient has viral levels checked periodically as outpatient, have been undetectable Lymphocyte count 0.88, mildly leukopenic on admit Continue Biktarvy (3) Schizoaffective disorder: Schizoaffective disorder Reportedly well controlled with Remeron nightly, sertraline 50 mg, venlafaxine 50 mg daily. Continue ropinirole HS. DVT prophylaxis: Pharmacal prophylaxis held pending surgical evaluation, SCDs Diet: regular, N.p.o. midnight, IVF M 120 cc/h Disposition: Medical/surgical CODE STATUS: Full code (2) Preseptal cellulitis: (3) Facial cellulitis: (4) Schizoaffective disorder: (5) HIV (human immunodeficiency virus infection): (6) Leukopenia: Admission and Anticipated Discharge Date Admission Date: May 09, 2022 Supervising Physician Co-Signing Physician Notes Resident Physician Supervision Note: I independently interviewed and examined the patient and verified the casas history and physical, reviewed labs and image studies and agree with resident findings and care plan. Subjective Patient seen at bedside, calm comfortable cooperative. Understands he is currently on IV antibiotics. Patient understands he is currently NPO for concern possible surgery today. Pain in jaw currently controlled, worse on right side. Denies any fevers at this time, denies nausea SOB. Physical Exam Constitutional: WD/WN, vitals as above Eyes: PERRL, conjunctivae normal, anicteric sclerae ENMT: Tender to palpation to right maxillary region, left mandibular region. No external swelling or discoloration noted. No cervical lymphadenopathy noted. Poor dentation noted. Neck: normal visual inspection Respiratory: normal respiratory effort, lungs clear to auscultation Cardiovascular: RRR, no murmur, no edema Skin: no rashes, warm and dry Results & Data Results & Data Vital Signs (Past 12 Hours) Vital Signs Temp Pulse Resp BP Pulse Ox O2 Del Method 05/09/22 21:39 36.8 C 80 14 123/76 96 Room Air Resident Activity Tracking Resident Involvement: Resident Care Provided Care Provided: Adult Hospital Medicine (4) Schizoaffective disorder Schizoaffective disorder type: depressive Qualified Code(s): F25.1 - Schizoaffective disorder, depressive type (5) HIV (human immunodeficiency virus infection) HIV symptom status: asymptomatic, with no history of HIV-related illness Qualified Code(s): Z21 - Asymptomatic human immunodeficiency virus [HIV] infection status
[2022-05-10] MEDS ORDERED: KETOROLAC TROMETHAMINE 15 MG/ML VIAL IV ONE (08:01)
[2022-05-10 08:20] LABS: BUN Creatinine Ratio 19.1 (10-20); Calcium 8.6 mg/dl (8.6-10.3); Creatinine Clr Calc Pharmacy 96.3 ml/min; Est GFR (African American) 122.1 ml/min; Est GFR (Non-African American) 105.4 ml/min; Potassium 4.3 mmol/L (3.5-5.1)
[2022-05-10] MEDS: SERTRALINE HCL 50 MG TABLET PO SCH (09:00)
[2022-05-10] MEDS: ACETAMINOPHEN 325 MG TAB PO SCH ×4 (09:00→20:37)
[2022-05-10] MEDS: VENLAFAXINE HCL XR 150 MG CAPXR PO SCH (09:00)
[2022-05-10 15:34] LABS: Hematocrit (blood only) 34.6 % (42.0-52.0); Hemoglobin 12.4 g/dl (14.0-18.0)
[2022-05-10] MEDS: rOPINIRole HCL 0.25 MG TABLET PO SCH (20:36)
[2022-05-10] MEDS: MIRTAZAPINE TAB 15 MG TAB PO SCH (20:37)
--- NOTE | 2022-05-10 21:28 | Oral/Maxillofacial Progress Nt ---
Date of Service May 10, 2022 Assessment & Plan Admission and Anticipated Discharge Date Admission Date: May 09, 2022 Veto Barrios has less periorbital swelling this evening. He is not showing fluctuance intraorally in the upper right mucobuccal fold. He will be ready for he I&D with extractions of teeth 4,5,6,7 possibly some others on the upper. He will need others in the future with partials or full dentures. I reviewed the consent and he agreed to the procedures which will be I&D with the dental extractions. I will add him on the schedule for tomorrow--in OR with [place]. I was later told that he has a hearing tomorrow at 2 pm The request was that he be allowed to go to the hearing and then return to the hospital for the surgery procedures. I strongly advice against this. The court must understand that he was admitted with a facial infection was placed on IV anabiotics and is set up for the I&D with dental extractions tomorrow afternoon. This is the standard of care to insure continuity of care. I still plan to do the I&D with the dental extractions tomorrow afternoon as original set up. Results & Data Vital Signs (Past 12 Hours) Vital Signs Temp Pulse Resp BP Pulse Ox O2 Del Method 05/10/22 14:36 36.9 C 78 16 121/78 98 Room Air PG Care Time/CCT Total # of Minutes Spent Total Time Spent with Patient: Total time spent is greater than 50% in coordination of care (as documented) at patient's floor/unit and/or counseling patient: Coding Level of Care Code None Diagnoses
[2022-05-11] MEDS: ACETAMINOPHEN 325 MG TAB PO SCH ×6 (00:11→22:37)
[2022-05-11] MEDS: PIPERACILLIN/TAZOBACTAM 3.375 GM in DEXTROSE 5% 100 ML IV SCH ×3 (03:19→22:34)
[2022-05-11] MEDS: NSS + 20MEQ KCL 20 MEQ/1,000 ML BAG IV SCH ×2 (03:23→11:06)
--- NOTE | 2022-05-11 07:01 | Anesthesiology Consultation ---
Date of Service May 11, 2022 Assessment & Plan (1) Encounter for pre-operative examination: Chart Review Chart Review: Acceptable Risk for Surgery and Patient NOT seen in Pre Admission Testing Consults Requested none History Surgery Operation Date: 05/11/22 15:15 Proposed Procedures p Right Intraoral Facial Abscess Incision and Drainage, Extraction of 5-6 Teeth - Uriel Valencia, DMD Height/Weight Height: 5 ft 5 in Weight: 71.7 kg Allergies Allergy/AdvReac Type Severity Reaction Status Date / Time quetiapine [From Seroquel] Allergy Unknown ON MED LIST Verified 05/09/22 15:10 trazodone Allergy Unknown ON MED LIST Verified 05/09/22 15:10 Medications Home Medications Medication Instructions Recorded Confirmed Last Taken bictegravir 50 mg-emtricitabine 1 tab PO DAILY 05/09/22 05/09/22 Unknown 200 mg-tenofovir alafenam 25 mg tablet (Biktarvy) clindamycin HCl 150 mg capsule 300 mg PO TID 05/09/22 05/09/22 Unknown ibuprofen 600 mg tablet 600 mg PO TID 05/09/22 05/09/22 Unknown mirtazapine 15 mg tablet 15 mg PO HS 05/09/22 05/09/22 Unknown ropinirole 0.5 mg tablet 0.5 mg PO HS 05/09/22 05/09/22 Unknown sertraline 50 mg tablet 50 mg PO DAILY 05/09/22 05/09/22 Unknown venlafaxine 150 mg 150 mg PO DAILY 05/09/22 05/09/22 Unknown capsule,extended release 24 hr (Effexor XR) Active Medications Generic Name Dose Route Start Last Admin Trade Name Redd PRN Reason Stop Dose Admin Acetaminophen 650 mg 05/10/22 08:30 05/11/22 03:19 Acetaminophen 325 Mg Tab PO 06/09/22 08:29 650 mg Q4H CAMMIE Administration Piperacillin Sod/Tazobactam 115 mls @ 28.75 mls/hr 05/09/22 19:00 05/11/22 03:19 Sod 3.375 gm/ Dextrose IV 05/16/22 18:59 28.8 mls/hr Q8H CAMMIE Administration Protocol Potassium Chloride/Sodium Chloride 20 meq in 1,000 mls @ 120 mls/hr 05/09/22 17:57 05/11/22 03:23 Normal Saline W/20 Meq Kcl IV 06/08/22 17:56 120 mls/hr .Q8H20M CAMMIE Administration Protocol Mirtazapine 15 mg 05/09/22 21:00 05/10/22 20:37 Mirtazapine Tab 15 Mg Tab PO 06/08/22 20:59 15 mg HS CAMMIE Administration Ropinirole HCl 0.5 mg 05/09/22 21:00 05/10/22 20:36 Ropinirole Hcl 0.25 Mg Tablet PO 06/08/22 20:59 0.5 mg HS CAMMIE Administration Sertraline HCl 50 mg 05/10/22 09:00 05/10/22 09:00 Sertraline Hcl 50 Mg Tablet PO 06/09/22 08:59 50 mg DAILY CAMMIE Administration Venlafaxine HCl 150 mg 05/10/22 09:00 05/10/22 09:00 Venlafaxine Hcl Xr 150 Mg Capxr PO 06/09/22 08:59 150 mg DAILY CAMMIE Administration NPO Date Last Intake of Fluids: 05/11/22 Time Last Intake of Fluids: 00:00 Date Last Intake of Solids: 05/11/22 Time Last Intake of Solids: 00:00 Past Medical History Medical History Active intravenous drug use HIV (human immunodeficiency virus infection) Schizoaffective disorder Past Surgical History Surgical History No history of previous surgery Social History Smoking Status: Never smoker Do You Dip or Chew Tobacco: No Hx Alcohol Use: No Hx Substance Use: Yes substance use type: marijuana, IV drugs and methamphetamine Last Used Substance: Unknown Physical Exam Vital Signs Last Vital Signs Temp 98.2 F 05/10/22 22:00 Pulse 84 05/10/22 22:00 Resp 14 05/10/22 22:00 BP 133/74 05/10/22 22:00 Pulse Ox 97 05/10/22 22:00 O2 Del Method Room Air 05/10/22 22:00 Testing Laboratory Results 05/10/22 15:15 05/10/22 06:45 PT 11.3 Seconds (9.0-12.0) 05/09/22 11:21 INR 1.1 (0.9-1.1) 05/09/22 11:21 APTT 26.6 Seconds (21.0-31.0) 05/09/22 11:21 Electrocardiogram Date: 05/09/22 Findings: + NSR @ Other Testing Face CT: 05/09/22 IMPRESSION: 1. No acute facial bone abnormality is seen. 2. Periorbital soft tissue edema seen bilaterally and suggests cellulitis. Correlate clinically. No periorbital fluid collection is seen to indicate abscess. 3. Severe periodontal disease as above with numerous dental caries and periapical lucencies. Several of these show overlying cortical breakthrough. Follow up with dentistry is recommended. 4. Significant cellulitis is seen overlying both the mandible and maxilla, with a 10 mm periodontal abscess overlying the right maxilla. 5. The bony orbits are intact and intraorbital contents are normal in appearance.
[2022-05-11] MEDS: [UNRECOGNIZED DRUG - OTHER] EXT SCH ×2 (07:42→07:47)
[2022-05-11] MEDS: VENLAFAXINE HCL XR 150 MG CAPXR PO SCH (07:45)
[2022-05-11] MEDS: SERTRALINE HCL 50 MG TABLET PO SCH (07:45)
[2022-05-11 08:14] LABS: Hematocrit (blood only) 38.9 % (42.0-52.0); Hemoglobin 13.4 g/dl (14.0-18.0); Mean Corpuscular Hemoglobin 28.9 pg (25.0-34.0); Mean Corpuscular Hgb Conc 34.4 g/dL (32.0-36.0); Mean Platelet Volume 9.1 fL (9.4-12.4); Platelet Count 201 K/uL (130-400); RDW Coefficient of Variation 13.4 % (11.5-14.5); RDW Standard Deviation 41.3 fL (36.4-46.3); Red Blood Count 4.63 M/uL (4.70-6.10); White Blood Count 4.08 K/ul (4.8-10.8)
[2022-05-11 08:36] LABS: BUN Creatinine Ratio 16.5 (10-20); Calcium 8.9 mg/dl (8.6-10.3); Creatinine Clr Calc Pharmacy 99.5 ml/min; Est GFR (Non-African American) 109.6 ml/min; Potassium 4.3 mmol/L (3.5-5.1)
--- NOTE | 2022-05-11 09:41 | Hospitalist Progress Note ---
Date of Service May 11, 2022 Assessment & Plan (1) Abscess of face: Plan: 36yo Male with PMH HIV schizoaffective disorder here for perioral cellulitis and dental abscess. Preseptal/periorbital cellulitis; maxillary abscess 2 days of facial swelling and warmth, notable poor dentation - CTA of the head and neck: No acute findings. Unremarkable angiograms. - CTface: No bony abnormality. Periorbital soft tissue edema suggesting cellulitis, no fluid collection. Severe periodontal disease, numerous dental caries with cortical breakthrough. Mandibular and maxillary cellulitis with periodontal abscess overlying right maxilla. Bony orbits normal. OMFS Dr. Valencia consulted, plan today for Right Intraoral Facial Abscess Incision and Drainage, Extraction of 5-6 Teeth started on Zosyn - pain management with tylenol, toradol (2) HIV (human immunodeficiency virus infection): HIV Per patient has viral levels checked periodically as outpatient, have been undetectable Lymphocyte count 0.88, mildly leukopenic on admit Continue Biktarvy (3) Schizoaffective disorder: Schizoaffective disorder Reportedly well controlled with Remeron nightly, sertraline 50 mg, venlafaxine 50 mg daily. Continue ropinirole HS. DVT prophylaxis: Pharmacal prophylaxis held pending surgical evaluation, SCDs Diet: NPO for procedure Disposition: Medical/surgical CODE STATUS: Full code (2) Preseptal cellulitis: (3) Facial cellulitis: (4) Schizoaffective disorder: (5) HIV (human immunodeficiency virus infection): (6) Leukopenia: Admission and Anticipated Discharge Date Admission Date: May 09, 2022 Supervising Physician Co-Signing Physician Notes Resident Physician Supervision Note: I independently interviewed and examined the patient and verified the casas history and physical, reviewed labs and image studies and agree with resident findings and care plan. Subjective Patient seen at bedside, calm comfortable cooperative. States pain is well controlled, denies any fever SOB. Patient understands he has dental surgery scheduled for today. Physical Exam Eyes: PERRL, conjunctivae normal, anicteric sclerae ENMT: Tender to palpation to right maxillary region, left mandibular region. No external swelling or discoloration noted. No cervical lymphadenopathy noted. Poor dentation noted. Neck: normal visual inspection Respiratory: normal respiratory effort, lungs clear to auscultation Cardiovascular: RRR, no murmur, no edema Skin: no rashes, warm and dry Results & Data Results & Data Vital Signs (Past 12 Hours) Vital Signs Temp Pulse Resp BP BP Pulse Ox O2 Del Method 05/11/22 07:57 36.5 C 72 16 119/81 98 Room Air 05/10/22 22:00 36.8 C 84 14 133/74 97 Room Air Resident Activity Tracking Resident Involvement: Resident Care Provided Care Provided: Adult Hospital Medicine (4) Schizoaffective disorder Schizoaffective disorder type: depressive Qualified Code(s): F25.1 - Schizoaffective disorder, depressive type (5) HIV (human immunodeficiency virus infection) HIV symptom status: asymptomatic, with no history of HIV-related illness Qualified Code(s): Z21 - Asymptomatic human immunodeficiency virus [HIV] infection status
[2022-05-11] MEDS ORDERED: ePHEDrine sulfate 50 MG/ML AMP IV PRN (16:59)
[2022-05-11] MEDS ORDERED: fentaNYL citrate PF 100 MCG/2 ML VIAL IV PRN (16:59)
[2022-05-11] MEDS ORDERED: ATROPINE SULFATE 0.1 MG/ML 10ML SYR IV PRN (16:59)
[2022-05-11] MEDS ORDERED: ONDANSETRON INJ 2 MG/ML 2 ML VIAL IV PRN (16:59)
[2022-05-11] MEDS ORDERED: MIDAZOLAM HCL 1 MG/ML 2ML VIAL ONE (19:45)
[2022-05-11] MEDS ORDERED: ONDANSETRON INJ 2 MG/ML 2 ML VIAL ONE (19:45)
[2022-05-11] MEDS ORDERED: SUCCINYLCHOLINE CHLORIDE 20 MG/ML 10 ML VIAL IV ONE (19:45)
[2022-05-11] MEDS ORDERED: fentaNYL citrate PF 100 MCG/2 ML VIAL ONE (19:45)
[2022-05-11] MEDS ORDERED: DEXAMETHASONE SOD INJ 4 MG/ML VIAL ONE (19:45)
[2022-05-11] MEDS ORDERED: PROPOFOL IV EMULSION 10 MG/ML 20 ML VIAL IV ONE (19:45)
[2022-05-11] MEDS ORDERED: BUPIVACAINE/EPINEPHRINE 0.5% 1:200,000 1.8 ML CARP ONE ×2 (19:46→20:15)
--- NOTE | 2022-05-11 19:56 | History & Physical Bridge Note ---
Date of Service May 11, 2022 History & Physical Bridge Note I have examined the patient, reviewed the History & Physical and in the interval since the performance of the History & Physical I have noted the following changes of clinical significance: no changes noted OK for planed surgery I&D and extraction of infected teeth
[2022-05-11] MEDS ORDERED: LIDOCAINE 2% MPF LOCAL 5 ML VIAL ONE (20:30)
--- NOTE | 2022-05-11 20:51 | Operative Report ---
PG Post Operative Report Pre & Post Diagnosis Operation Date: 05/11/22 14:30 Pre-Op Diagnosis: PRESEPTAL CELLULITIS, MAXILLARY ABSCESS Post-Op Diagnosis: PRESEPTAL CELLULITIS, MAXILLARY ABSCESS I identified the patient and participated in the time-out.: Yes Procedure Operation Date: 05/11/22 14:30 Actual Procedures p Right Intraoral Facial Abscess Incision and Drainage, Extraction of 5-6 Teeth(Right) - Uriel Valencia DMD Surgeon Uriel Valencia DMD Dental Service Technician none Estimated Blood Loss 2 Findings Consistent with Post-Op Diagnosis infected infraorbital-nasal labial abscess Grossly carious teeth Specimens I&D Drains none Anesthesia Type General Complications none Indications failed out patient antibiotics Description of Procedure Actual Procedures p Incision and Drainage right infraorbital/lateral nasal Abscess; Removal of Tooth #4,5,6,7,8 infected roots (fractured below the bone level) (Not Applicable) - Uriel Valencia DMD Coding D7210 x 5 surgical extraction of tooth # 4,5,6,7,8 CPT 16049 complicated I&D right vestibule and infraorbital space Once cleared for surgery general anesthesia was achieved, the eyes were protected by the anesthesia dept criteria. A time out was take for patient ID, antibiotics, equipment and position verification once all agreed the procedure began. Local anesthesia using Marcaine with a vasoconstrictor ( 1.8 ml per site) given into right mucobuccal fold A throat pack was placed after the oral cavity was irrigated with saline. Once a surgical level of anesthesia was obtained and the local anesthesia was given time for the blocks the surgery was started. I turned my attention to the infection which was located right lateral nasal/infraorbital area. There was fluctuance upper right mucobuccal fold. There was also swelling associated with teeth 4,5,6,7,8 ( see CT scan report) Incision and Drainage CPT 12136 complicated I&D right vestibule and infraorbital space Using a 15 blade an incision was made lateral to the alveolar ridge in the right mucobuccal fold Once the incision was made a lot of pus extruded from the site. This drainage was cultured for anaerobic and aerobic bacteria. A curved hemostat was carefully placed into the infected space along the lateral side of the nose into the infraorbital space. I palpated the lateral nasal area and no further drainage was expressed. The area was irrigated with at least 100 ml of NS solution. I now turned my attention to remove the upper # 4.5.6.7.8 roots Upper teeth # 4,5,6,7,8 Coding D7210 x 5 surgical extraction of tooth # 4,5,6,7,8 The full thick Muco-periosteal flap was made on the facial aspect from # 3-9. The flap was reflected to expose the bone adjacent to THE RETAINED INFECTED ROOTS. The rongeur was used to remove bone, the roots were removed with a 301 elevator, there was a large amount of granulation tissue on the apex of all these roots and some more pus that was expressed. The interseptal bone was trimmed. The grossly infected tissue was trimmed and sutured closed with a 2-0 chromic suture. The drainage incision in the Muco buccal fold was left open to allow for further drainage. When all the teeth were removed I inspected the sites to insure all bleeding was controlled. I removed the throat pack and suctioned the throat. A gauze pressure dressings was placed. All instrument and sponge count was correct. the patient was allowed to awake from the anesthesia. Once full awake the anesthesia tube was removed and the patient was taken to the recovery room with all vital sign stable. The patient tolerated the surgery very well. I will follow the patient in my office, Rx and instructions will be given upon discharge. I attest to the content of the Intraoperative Record and any orders documented therein. Any exceptions are noted below.
--- NOTE | 2022-05-11 21:14 | Anesthesiology Progress Note ---
Date of Service May 11, 2022 Anesthesia Post Procedure Vital Signs Vital Signs: Temp Pulse Pulse Resp BP BP Pulse Ox 05/11/22 21:00 83 18 150/88 H 100 05/11/22 20:53 36.3 C L 88 17 152/115 H 98 05/11/22 16:30 37.2 C 75 18 132/88 98 05/11/22 14:44 36.6 C 65 16 132/94 100 05/11/22 07:57 36.5 C 72 16 119/81 98 05/10/22 22:00 36.8 C 84 14 133/74 97 O2 Del Method O2 Flow Rate 05/11/22 21:00 Oxymask 4 05/11/22 20:53 Oxymask 8 05/11/22 16:30 Room Air 05/11/22 14:44 Room Air 05/11/22 07:57 Room Air 05/10/22 22:00 Room Air Pain Intensity Left Face: Pain Intensity: 6 Transfer of Care Handoff Completed per policy Notes Mental Status: alert / awake / arousable and participated in evaluation Patient Amnestic to Procedure: Yes Nausea / Vomiting: adequately controlled Pain: adequately controlled Airway Patency, RR, SpO2: stable & adequate BP & HR: stable & adequate Hydration State: stable & adequate Anesthetic Complications: no major complications apparent and Pt Satisfied with anesthetic care
[2022-05-11] MEDS: rOPINIRole HCL 0.25 MG TABLET PO SCH (23:40)
[2022-05-11] MEDS: MIRTAZAPINE TAB 15 MG TAB PO SCH (23:40)
[2022-05-12] MEDS: ACETAMINOPHEN 325 MG TAB PO SCH ×3 (00:13→08:36)
[2022-05-12] MEDS: NSS + 20MEQ KCL 20 MEQ/1,000 ML BAG IV SCH ×3 (01:52→10:13)
[2022-05-12] MEDS ORDERED: Nursing to Pharmacy Communication SCH (03:45)
[2022-05-12] MEDS ORDERED: HYDROmorphone INJ 0.5 MG/0.5 ML SYR IV PRN (04:56)
[2022-05-12] MEDS: PIPERACILLIN/TAZOBACTAM 3.375 GM in DEXTROSE 5% 100 ML IV SCH (05:28)
[2022-05-12 06:49] LABS: Hematocrit (blood only) 42.2 % (42.0-52.0); Hemoglobin 14.8 g/dl (14.0-18.0); Mean Corpuscular Hemoglobin 29.2 pg (25.0-34.0); Mean Corpuscular Hgb Conc 35.1 g/dL (32.0-36.0); Mean Corpuscular Volume 83.2 fL (80.0-100.0); Mean Platelet Volume 9.2 fL (9.4-12.4); Platelet Count 198 K/uL (130-400); RDW Coefficient of Variation 13.1 % (11.5-14.5); RDW Standard Deviation 39.1 fL (36.4-46.3); Red Blood Count 5.07 M/uL (4.70-6.10)
--- NOTE | 2022-05-12 08:06 | Hospitalist Progress Note ---
Date of Service May 12, 2022 Assessment & Plan Admission and Anticipated Discharge Date Admission Date: May 09, 2022 Results & Data Results & Data Vital Signs (Past 12 Hours) Vital Signs Temp Pulse Pulse Resp BP BP Pulse Ox 05/12/22 07:31 36.8 C 72 18 117/73 97 05/12/22 03:31 36.7 C 74 14 117/73 97 05/11/22 23:42 36.7 C 74 16 107/67 97 05/11/22 22:35 36.6 C 74 16 130/81 96 05/11/22 22:08 36.5 C 82 17 125/77 94 05/11/22 21:47 36.6 C 80 17 123/79 95 05/11/22 21:32 36.7 C 82 17 130/79 95 05/11/22 20:20 36.5 C 92 H 13 130/79 93 05/11/22 21:10 80 18 134/81 96 05/11/22 21:00 83 18 150/88 H 100 05/11/22 20:53 36.3 C L 88 17 152/115 H 98 O2 Del Method O2 Flow Rate 05/12/22 07:31 Room Air 05/12/22 03:31 Room Air 05/11/22 23:42 Room Air 05/11/22 22:35 Room Air 05/11/22 22:08 Room Air 05/11/22 21:47 Room Air 05/11/22 21:32 Room Air 05/11/22 20:20 Room Air 05/11/22 21:10 Oxymask 4 05/11/22 21:00 Oxymask 4 05/11/22 20:53 Oxymask 8
--- NOTE | 2022-05-12 08:23 | Oral/Maxillofacial Progress Nt ---
Date of Service May 12, 2022 Assessment & Plan Admission and Anticipated Discharge Date Admission Date: May 09, 2022 Subjective Post Op infection evaluation The infected area has responded very well to the I&D, dental extractions and IV antibiotics Swelling is gone and the tissue is healing well No drainage is noted. Cultures pending Infection has responded very well to the antibiotics and the I and D. I requested that the patient continue with massage, heat and wound/oral care. At this time the area is well healed and responded well to treatment. Suggest oral antibiotics for the next 5-7 days OK for discharge as per medical RTC as needed. Results & Data Vital Signs (Past 12 Hours) Vital Signs Temp Pulse Pulse Resp BP BP Pulse Ox 05/12/22 07:31 36.8 C 72 18 117/73 97 05/12/22 03:31 36.7 C 74 14 117/73 97 05/11/22 23:42 36.7 C 74 16 107/67 97 05/11/22 22:35 36.6 C 74 16 130/81 96 05/11/22 22:08 36.5 C 82 17 125/77 94 05/11/22 21:47 36.6 C 80 17 123/79 95 05/11/22 21:32 36.7 C 82 17 130/79 95 05/11/22 21:10 80 18 134/81 96 05/11/22 21:00 83 18 150/88 H 100 05/11/22 20:53 36.3 C L 88 17 152/115 H 98 O2 Del Method O2 Flow Rate 05/12/22 07:31 Room Air 05/12/22 03:31 Room Air 05/11/22 23:42 Room Air 05/11/22 22:35 Room Air 05/11/22 22:08 Room Air 05/11/22 21:47 Room Air 05/11/22 21:32 Room Air 05/11/22 21:10 Oxymask 4 05/11/22 21:00 Oxymask 4 05/11/22 20:53 Oxymask 8 PG Care Time/CCT Total # of Minutes Spent Total Time Spent with Patient: Total time spent is greater than 50% in coordination of care (as documented) at patient's floor/unit and/or counseling patient: Coding Level of Care Code None Diagnoses
[2022-05-12] MEDS: [UNRECOGNIZED DRUG - OTHER] EXT SCH (08:36)
[2022-05-12] MEDS: VENLAFAXINE HCL XR 150 MG CAPXR PO SCH (08:37)
[2022-05-12] MEDS: SERTRALINE HCL 50 MG TABLET PO SCH (08:37)
[2022-05-12] MEDS ORDERED: IBUPROFEN 600 MG TAB PO STA (09:51)
--- NOTE | 2022-05-12 12:14 | Discharge Summary ---
Date of Service May 12, 2022 Admission HPI Per Admitting Provider Denis is a 36-year-old male with facial swelling x2 days. CTA of the head and neck: No acute findings. Unremarkable angiograms. CTface: No bony abnormality. Periorbital soft tissue edema suggesting cellulitis, no fluid collection. Severe periodontal disease, numerous dental caries with cortical breakthrough. Mandibular and maxillary cellulitis with periodontal abscess overlying right maxilla. Bony orbits normal. Patient seen at the bedside. He reports he takes Zoloft and another medicine for mood/schizoaffective disorder, and Biktarvy for HIV which she is told is undetectable with no count abnormalities. He has had 2 days of worsening cellulitis on his cheek underlying the right eye. No problems with pain or swelling prior to this. He does not have any dental pain. He has not had any foul purulent taste or production from his teeth. No wheezing. No fever, chills, sweats. No photosensitivity. No vision change. Denies other recent infections. Denies URI symptoms. No pain on extraocular movements. He does not use cigarettes or alcohol, is an inmate. Denies chest pain, chest pressure, shortness of breath, difficulty breathing, syncope, presyncope. Did not improve on 2 days of clindamycin. Denies other attempted treatments. Medical History: Reviewed Medications: Reviewed Surgical History: Reviewed Family history: Reviewed Allergies: Reviewed Social History: Reviewed Code Status: Full code Admission Exam Per Admitting Provider General: A&Ox3. NAD. Cooperative. HEENT: Right infraorbital skin with warmth/erythema but no fluctuance. EOMs intact without pain. No photosensitivity. Vision/hearing intact. Very poor dentition, no obvious purulence at gums. Pulm: CTAB A&P. -wheezes, -rales, -rhonchi. Symmetrical chest rise. No increased work of breathing. No respiratory distress. Cardiac: RRR, -mrg. Radial pulses intact and symmetrical. Abdominal: Nontender, nondistended, soft. BS present. Extremities: Warm, dry. Principal Diagnosis Preseptal cellulitis, maxillary abscess Discharge Exam Constitutional: well-appearing, no acute distress HEENT: NCAT, no conjunctival injection, right upper gum stitches noted, no swelling, no bleeding or exudate CV: regular rhythm, no murmur appreciated, extremities well-perfused, no LE edema Resp: CTABL, no wheezes/rales/rhonchi appreciated, no increased work of breathing Neuro: alert, oriented, no focal neurologic deficit appreciated Discharge Data Allergies Allergy/AdvReac Type Severity Reaction Status Date / Time quetiapine [From Seroquel] Allergy Unknown ON MED LIST Verified 05/09/22 15:10 trazodone Allergy Unknown ON MED LIST Verified 05/09/22 15:10 Consultations 05/09/22 14:18 ED Decision to Admit Stat 05/09/22 17:57 Consult Oromaxillofacial Surgery Routine Procedures Performed Operation Date: 05/11/22 14:30 Actual Procedures p Right Intraoral Facial Abscess Incision and Drainage, Extraction of 5-6 Teeth(Right) - Uriel Valencia DMD Ordered Studies 05/09/22 10:43 CT angio head w con Stat CT angio neck with con Stat CT face [CT facial bones w con] Stat CT head/brain wo con Stat Hospital Course (1) Acute abscess of maxillary sinus: Preseptal cellulitis, maxillary abscess Imaging was consistent with preseptal cellulitis, maxillary abscess, severe periodontal disease, and numerous dental carries with cortical breakthrough. Upon admission, patient was placed on zosyn. OMFS was consulted and performed a right intraoral facial abscess incision and drainage in addition to extraction of five teeth (performed by Dr. Valencia on 05/11/22). Patient tolerated the procedure well without complications. Patient was discharged on hospital day four in stable condition. Upon discharge, patient is to continue metronidazole (500mg PO q8h) and levofloxacin (750mg PO daily) for seven days starting on the day of discharge. Total Time Total Time Spent Total Time Spent (In Minutes): see attending documentation Discharge Plan Discharge Items [facility] Disposition[facility] Reason For Visit: PRESEPTAL CELLULITIS, MAXILLARY ABSCESS Discharge Diagnosis: maxillary abscess, preseptal cellulitis Activity: Resume your previous activity Non-emergency contact: Primary Care Provider Call non-emergency contact if: your symptoms worsen Follow-up/Referrals: [facility] [Primary Care Provider] - Diet: Regular Addtl Attending Provider Instructions: Preseptal cellulitis, maxillary abscesses CTA head/neck unremarkable CT face: no bony abnormality; periorbital soft tissue edema suggesting cellulitis without fluid collection; severe periodontal disease, numerous dental caries with cortical breakthrough; mandibular and maxillary cellulitis with periodontal abscess overlying right maxilla; bony orbits normal OMFS consulted (Dr. Valencia); performed right intraoral/facial abscess I&D and extraction of five teeth Patient tolerated surgery well; no complications Patient was on zosyn during this admission; patient requires a seven-day course of oral antibiotics upon discharge: Metronidazole 500mg PO every eight hours for seven days Levofloxacin 750mg PO once daily for seven days Pain management with tylenol, ibuprofen HIV Viral load undetectable Continue biktarvy Schizoaffective disorder Continue home regimen (remeron, sertraline, venlafaxine, ropinirole) Pending Studies at Discharge: Yes (abscess culture) Stand-Alone Forms: My [facility] Skilled Items Patient informed of condition?: Yes Discharge Level of Care: Other Communicable Disease: No Discharge Prognosis: Stable Lines: None Urinary Catheter: No Medications and DC Order Prescriptions: New metronidazole 500 mg tablet 500 mg PO TID 7 Days Qty: 21 0RF levofloxacin 750 mg tablet 750 mg PO DAILY 7 Days Qty: 7 0RF Continued venlafaxine [Effexor XR] 150 mg Capsule,Extended Release 24hr 150 mg PO DAILY ropinirole 0.5 mg Tablet 0.5 mg PO HS Rx Instructions: administer 1-3 hours before bedtime mirtazapine 15 mg Tablet 15 mg PO HS ibuprofen 600 mg Tablet 600 mg PO TID Rx Instructions: STARTED 05/07/22 FOR 10 DAYS sertraline 50 mg Tablet 50 mg PO DAILY Biktarvy 50-200-25 mg Tablet 1 tab PO DAILY Discontinued clindamycin HCl 150 mg Capsule 300 mg PO TID Rx Instructions: STARTED 05/07/22 FOR 10 DAYS Discharge Orders: Discharge Order (Routine); Ordered 05/12/22 Ordered By: Kale Barillas/Other Patient Handouts: ED Abscess, Incision And Drainage Admission Data Admit Date/Time: 05/09/22 15:21 Attending Provider: Jasmyne Bermudez Admit Provider: Dangelo Garcia Primary Care Provider: [facility] Other Providers: Dangelo Garcia ; Uriel Valencia Other Interventions: Discharge Summary Assessment (RN) Last Done: 05/12/22 12:33 Supervising Physician Co-Signing Physician Notes Resident Physician Supervision Note: I independently interviewed and examined the patient and verified the casas history and physical, reviewed labs and image studies and agree with resident findings and care plan. Resident Activity Tracking Resident Involvement: Resident Care Provided Care Provided: Adult Hospital Medicine
== END 2022-05-12 12:54 | DRG 579 ==
LOC: ED 10:04 → SUATTDRO 15:21 → 3E 15:21

== ENCOUNTER 2022-12-04 15:31 | Inpatient (IN) ==
[2022-12-04 16:36] LABS: Basophils # (auto) 0.02 K/uL (0.00-0.20); Basophils % (auto) 0.4 %; Eosinophils # (auto) 0.12 K/uL (0.00-0.50); Eosinophils % (auto) 2.3 %; Hematocrit (blood only) 45.8 % (42.0-52.0); Hemoglobin 15.8 g/dl (14.0-18.0); Immature Granulocytes # (auto) 0.01 K/uL (0.01-0.20); Immature Granulocytes % (auto) 0.2 %; Lymphocytes # (auto) 1.07 K/uL (1.20-3.40); Lymphocytes % (auto) 20.4 %; Mean Corpuscular Hemoglobin 27.9 pg (25.0-34.0); Mean Corpuscular Hgb Conc 34.5 g/dL (32.0-36.0); Mean Corpuscular Volume 80.9 fL (80.0-100.0); Mean Platelet Volume 9.6 fL (9.4-12.4); Monocytes # (auto) 0.33 K/uL (0.11-0.59); Monocytes % (auto) 6.3 %; Neutrophils % (auto) 70.4 %; Platelet Count 213 K/uL (130-400); RDW Coefficient of Variation 15.1 % (11.5-14.5); RDW Standard Deviation 44.2 fL (36.4-46.3); Red Blood Count 5.66 M/uL (4.70-6.10); White Blood Count 5.25 K/ul (4.8-10.8)
[2022-12-04 16:40] LABS: Albumin Level 4.6 gm/dl (3.4-5.0); Bilirubin,Total 1.7 mg/dl (0.2-1.0); Calcium 9.9 mg/dl (8.6-10.3); Potassium 3.8 mmol/L (3.5-5.1)
--- NOTE | 2022-12-04 16:44 | Emergency Department Note ---
Impression & Plan Depression with suicidal ideation ED Provider Note Provider: Mitch Logan MD DATE OF SERVICE: 12/04/2022 CHIEF COMPLAINT: Suicidal thoughts HISTORY OF PRESENT ILLNESS: Patient is a 37-year-old gentleman history of HIV on therapy, schizoaffective disorder presenting here today reporting suicidal ideation. He reports that he has a plan to take all of his pills to try to end his life as well as having some homicidal thoughts. States his medications are working including Lamictal was recently started on by [facility]. 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 Reports that he does have some hallucinations and hears some voices. His footing by himself but has a friend staying and has asked him to leave but this person is not and has some thoughts of wanting to headbutt him. States he has been taking his medication. Believe he needs inpatient treatment again and has been helpful. Last inpatient hospitalization about 8 months ago. PAST MEDICAL HISTORY: As noted above MEDICATIONS: Reviewed home medication list SOCIAL HISTORY: Resides by himself normally. PHYSICAL EXAM: GENERAL: alert and oriented in no acute distress on stretcher Head: normocephalic and atraumatic EYES: No injection, discharge or icterus. NECK: Trachea midline. ENT: Mucous membranes pink and moist. LUNGS: Airway patent. No retractions or tachypnea HEART: Regular rate and rhythm. ABDOMEN: Soft and non-tender, without guarding or rebound. SKIN: Acyanotic, warm, dry, without rashes EXTREMITIES: Without swelling, tenderness or deformity NEUROLOGICAL: No focal deficits. No aphasia. No facial droop or slurred speech. Ambulatory. Psych: Not responding to external stimuli in the room. Reports SI as well as some thoughts of wanting to harm his friend but not clearly kill him. Endorses depression. Not manic at this time. Fairly normal affect. Patient's laboratory studies reviewed. Differential includes Mood disorder, infection, hypoglycemia, electrolyte abnormalities, cardiac sources, intracerebral event, toxicologic, trauma, neurologic, as well as other pathologies. IMPRESSION/MEDICAL DECISION MAKING: Seen with case management. Patient with extensive psychiatric history now with thoughts of SI and HI. Basic labs obtained. No significant abnormalities on CBC, CMP, or toxicology testing noted. TSH within normal limits. Patient wishes for voluntary inpatient treatment. Given his active thoughts of SI as well as plans feel this would be beneficial. Does have some HI and case management reaching out to police to alert patient's friend. Patient calm and cooperative here. Referrals are made for voluntary inpatient treatment. Acc epted to [facility] for further inpatient psychiatric care. DIAGNOSIS: Depression with suicidal ideation, schizoaffective disorder DISPOSITION: Accepted to [facility] on a 201. Past Med/Surg History Medical History (Updated 12/04/22 @ 17:08 by Mitch Logan M.D.) Abscess of face Active intravenous drug use Encounter for pre-operative examination Facial cellulitis HIV (human immunodeficiency virus infection) Preseptal cellulitis Priapism Schizoaffective disorder Surgical History History of incision and drainage (05/11/22) Right Intraoral Facial Abscess Incision and Drainage, Extraction of 5-6 Teeth(Right) - Uriel Valencia DMD No history of previous surgery Social History Smoking Status: Never smoker Do You Dip or Chew Tobacco: No; Hx Alcohol Use: No Hx Substance Use: Yes Last Used Substance: Unknown Preferred Language: Kyrgyz Communication Ability: Effective Entertainment Reporter Required: No Beliefs That Will Affect Care: None Current Living Situation: Other [facility] Feels Safe at Home: Yes Gender Identity: Male Assistive Devices: None Allergies Allergies Allergy/AdvReac Type Severity Reaction Status Date / Time quetiapine [From Seroquel] Allergy Unknown ON MED LIST Verified 11/14/22 09:38 trazodone Allergy Unknown ON MED LIST Verified 11/14/22 09:38 Home Meds Home Medications Medication Instructions Recorded Confirmed bictegravir 50 mg-emtricitabine 1 tab PO QAM 05/09/22 12/04/22 200 mg-tenofovir alafenam 25 mg tablet (Biktarvy) ibuprofen 600 mg tablet 600 mg PO TID 05/09/22 12/04/22 mirtazapine 15 mg tablet 15 mg PO HS 05/09/22 12/04/22 ropinirole 0.5 mg tablet 0.5 mg PO HS 05/09/22 12/04/22 sertraline 50 mg tablet 50 mg PO DAILY 05/09/22 12/04/22 lamotrigine 25 mg tablet (Lamictal) 25 mg PO HS 12/04/22 12/04/22 Results & Data (ED) Vital Signs Vital Signs - 24 hr 12/04/22 15:40 Temperature 36.3 C L Temperature Source Temporal Artery Scan Pulse Rate 99 H Respiratory Rate 18 Respiratory Effort / Characteristics Non-Labored Respiratory Depth Normal Blood Pressure 131/84 Blood Pressure Mean 99 Pulse Oximetry 95 Oxygen Delivery Method Room Air Sepsis Recent Fever Within 48 Hours No Sepsis New/Unexplained Change in Mental Status No Sepsis Action Taken by Nursing No Action Required Laboratory Data 12/04/22 15:55 12/04/22 15:55 Lab Results 12/04/22 12/04/22 12/04/22 Range/Units 15:55 15:55 15:55 WBC 5.25 (4.8-10.8) K/ul RBC 5.66 (4.70-6.10) M/uL Hgb 15.8 (14.0-18.0) g/dl Hct 45.8 (42.0-52.0) % MCV 80.9 (80.0-100.0) fL MCH 27.9 (25.0-34.0) pg MCHC 34.5 (32.0-36.0) g/dL RDW Std Deviation 44.2 (36.4-46.3) fL RDW Coeff of Jay Jay 15.1 H (11.5-14.5) % Plt Count 213 (130-400) K/uL MPV 9.6 (9.4-12.4) fL Immature Gran % (Auto) 0.2 % Neut % (Auto) 70.4 % Lymph % (Auto) 20.4 % [place] % (Auto) 6.3 % Eos % (Auto) 2.3 % Baso % (Auto) 0.4 % Neut # (Auto) 3.70 (1.40-6.50) K/uL Lymph # (Auto) 1.07 L (1.20-3.40) K/uL [place] # (Auto) 0.33 (0.11-0.59) K/uL Eos # (Auto) 0.12 (0.00-0.50) K/uL Baso # (Auto) 0.02 (0.00-0.20) K/uL Immature Gran # (Auto) 0.01 (0.01-0.20) K/uL Sodium 140 (136-145) mmol/L Potassium 3.8 (3.5-5.1) mmol/L Chloride 109 H (98-107) mmol/L Carbon Dioxide 25 (21-32) mmol/L Anion Gap 6 (3-11) BUN 15 (6-23) mg/dl Creatinine 1.04 (0.6-1.4) mg/dl Est Cr Clr Drug Dosing 98.4 ml/min Est GFR ( Amer) 107.3 ml/min Est GFR (Non-Af Amer) 92.6 ml/min BUN/Creatinine Ratio 14.4 (10-20) Glucose 112 H (70-99(Fasting)) mg/dl Calcium 9.9 (8.6-10.3) mg/dl Total Bilirubin 1.7 H (0.2-1.0) mg/dl AST 25 (13-39) U/L ALT 38 (7-52) U/L Alkaline Phosphatase 62 (34-104) U/L Total Protein 7.9 (6.0-8.3) gm/dl Albumin 4.6 (3.4-5.0) gm/dl Globulin 3.3 (2.5-4.0) gm/dl Albumin/Globulin Ratio 1.4 (0.9-2) TSH 0.648 (0.300-4.500) uIu/ml Urine Color Urine Appearance (Clear) Urine pH (4.5-7.5) Ur Specific [place] (1.000-1.030) Urine Protein (Negative) Urine Glucose (UA) (Negative) Urine Ketones (Negative) Urine Blood (Negative) Urine Nitrite (Negative) Urine Bilirubin (Negative) Urine Urobilinogen (Negative) Ur Leukocyte Esterase (Negative) Salicylates < 3.0 L (3.0-30) mg/dl Urine Opiates Screen (Neg) Ur Methadone, Qual (Neg) Acetaminophen < 3 L (10-30) ug/ml Urine Barbiturates (Neg) Ur Phencyclidine (PCP) (Neg) U Amphetamin/Meth Scrn (Neg) MDMA (Ecstasy) Screen (Neg) U Benzodiazepines Scrn (Neg) Ur Cocaine Metabolite (Neg) U Marijuana (THC) Screen (Neg) Ethyl Alcohol mg/dL (<10.0) mg/dl SARS-CoV-2, RNA, NAAT (NEGATIVE) 12/04/22 12/04/22 12/04/22 Range/Units 15:55 15:55 17:20 WBC (4.8-10.8) K/ul RBC (4.70-6.10) M/uL Hgb (14.0-18.0) g/dl Hct (42.0-52.0) % MCV (80.0-100.0) fL MCH (25.0-34.0) pg MCHC (32.0-36.0) g/dL RDW Std Deviation (36.4-46.3) fL RDW Coeff of [place] (11.5-14.5) % Plt Count (130-400) K/uL MPV (9.4-12.4) fL Immature Gran % (Auto) % Neut % (Auto) % Lymph % (Auto) % [place] % (Auto) % Eos % (Auto) % Baso % (Auto) % Neut # (Auto) (1.40-6.50) K/uL Lymph # (Auto) (1.20-3.40) K/uL [place] # (Auto) (0.11-0.59) K/uL Eos # (Auto) (0.00-0.50) K/uL Baso # (Auto) (0.00-0.20) K/uL Immature Gran # (Auto) (0.01-0.20) K/uL Sodium (136-145) mmol/L Potassium (3.5-5.1) mmol/L Chloride (98-107) mmol/L Carbon Dioxide (21-32) mmol/L Anion Gap (3-11) BUN (6-23) mg/dl Creatinine (0.6-1.4) mg/dl Est Cr Clr Drug Dosing ml/min Est GFR ( Amer) ml/min Est GFR (Non-Af Amer) ml/min BUN/Creatinine Ratio (10-20) Glucose (70-99(Fasting)) mg/dl Calcium (8.6-10.3) mg/dl Total Bilirubin (0.2-1.0) mg/dl AST (13-39) U/L ALT (7-52) U/L Alkaline Phosphatase (34-104) U/L Total Protein (6.0-8.3) gm/dl Albumin (3.4-5.0) gm/dl Globulin (2.5-4.0) gm/dl Albumin/Globulin Ratio (0.9-2) TSH (0.300-4.500) uIu/ml Urine Color Yellow Urine Appearance Clear (Clear) Urine pH 8.5 H (4.5-7.5) Ur Specific [place] 1.013 (1.000-1.030) Urine Protein Negative (Negative) Urine Glucose (UA) Negative (Negative) Urine Ketones Negative (Negative) Urine Blood Negative (Negative) Urine Nitrite Negative (Negative) Urine Bilirubin Negative (Negative) Urine Urobilinogen Positive H (Negative) Ur Leukocyte Esterase Negative (Negative) Salicylates (3.0-30) mg/dl Urine Opiates Screen (Neg) Ur Methadone, Qual (Neg) Acetaminophen (10-30) ug/ml Urine Barbiturates (Neg) Ur Phencyclidine (PCP) (Neg) U Amphetamin/Meth Scrn (Neg) MDMA (Ecstasy) Screen (Neg) U Benzodiazepines Scrn (Neg) Ur Cocaine Metabolite (Neg) U Marijuana (THC) Screen (Neg) Ethyl Alcohol mg/dL < 10.0 (<10.0) mg/dl SARS-CoV-2, RNA, NAAT NEGATIVE (NEGATIVE) 12/04/22 Range/Units 17:20 WBC (4.8-10.8) K/ul RBC (4.70-6.10) M/uL Hgb (14.0-18.0) g/dl Hct (42.0-52.0) % MCV (80.0-100.0) fL MCH (25.0-34.0) pg MCHC (32.0-36.0) g/dL RDW Std Deviation (36.4-46.3) fL RDW Coeff of [place] (11.5-14.5) % Plt Count (130-400) K/uL MPV (9.4-12.4) fL Immature Gran % (Auto) % Neut % (Auto) % Lymph % (Auto) % [place] % (Auto) % Eos % (Auto) % Baso % (Auto) % Neut # (Auto) (1.40-6.50) K/uL Lymph # (Auto) (1.20-3.40) K/uL [place] # (Auto) (0.11-0.59) K/uL Eos # (Auto) (0.00-0.50) K/uL Baso # (Auto) (0.00-0.20) K/uL Immature Gran # (Auto) (0.01-0.20) K/uL Sodium (136-145) mmol/L Potassium (3.5-5.1) mmol/L Chloride (98-107) mmol/L Carbon Dioxide (21-32) mmol/L Anion Gap (3-11) BUN (6-23) mg/dl Creatinine (0.6-1.4) mg/dl Est Cr Clr Drug Dosing ml/min Est GFR ( Amer) ml/min Est GFR (Non-Af Amer) ml/min BUN/Creatinine Ratio (10-20) Glucose (70-99(Fasting)) mg/dl Calcium (8.6-10.3) mg/dl Total Bilirubin (0.2-1.0) mg/dl AST (13-39) U/L ALT (7-52) U/L Alkaline Phosphatase (34-104) U/L Total Protein (6.0-8.3) gm/dl Albumin (3.4-5.0) gm/dl Globulin (2.5-4.0) gm/dl Albumin/Globulin Ratio (0.9-2) TSH (0.300-4.500) uIu/ml Urine Color Urine Appearance (Clear) Urine pH (4.5-7.5) Ur Specific [place] (1.000-1.030) Urine Protein (Negative) Urine Glucose (UA) (Negative) Urine Ketones (Negative) Urine Blood (Negative) Urine Nitrite (Negative) Urine Bilirubin (Negative) Urine Urobilinogen (Negative) Ur Leukocyte Esterase (Negative) Salicylates (3.0-30) mg/dl Urine Opiates Screen Neg (Neg) Ur Methadone, Qual Neg (Neg) Acetaminophen (10-30) ug/ml Urine Barbiturates Neg (Neg) Ur Phencyclidine (PCP) Neg (Neg) U Amphetamin/Meth Scrn Neg (Neg) MDMA (Ecstasy) Screen Neg (Neg) U Benzodiazepines Scrn Neg (Neg) Ur Cocaine Metabolite Neg (Neg) U Marijuana (THC) Screen Pos H (Neg) Ethyl Alcohol mg/dL (<10.0) mg/dl SARS-CoV-2, RNA, NAAT (NEGATIVE) Discharge Plan Visit Data Chief Complaint: Mental Health Evaluation Stated Complaint: SUICIDAL THOUGHTS ED Provider: Mitch Logan Discharge Problem: Depression with suicidal ideation Patient Disposition: Admitted As Inpatient Discharge Instructions Interventions: ED Discharge Assessment Last Done: 12/04/22 19:39
[2022-12-04 16:46] LABS: Albumin Globulin Ratio 1.4 (0.9-2); BUN Creatinine Ratio 14.4 (10-20); Creatinine Clr Calc Pharmacy 98.4 ml/min; Est GFR (African American) 107.3 ml/min; Est GFR (Non-African American) 92.6 ml/min; Globulin 3.3 gm/dl (2.5-4.0); Total Protein 7.9 gm/dl (6.0-8.3)
[2022-12-04 16:55] LABS: Acetaminophen < 3 ug/ml (10-30); Salicylate < 3.0 mg/dl (3.0-30)
[2022-12-04 16:57] LABS: Thyroid Stimulating Hormone 0.648 uIu/ml (0.300-4.500)
[2022-12-04 17:36] LABS: Appearance Urine Clear (Clear); Bilirubin Urine Negative (Negative); Blood Urine Negative (Negative); Color Urine Yellow; Glucose Urine UA Negative (Negative); Ketones Urine Negative (Negative); Leukocyte Esterase Urine Negative (Negative); Nitrite Urine Negative (Negative); Protein Urine Negative (Negative); Specific Gravity Urine 1.013 (1.000-1.030); Urobilinogen Urine Positive (Negative); pH Urine 8.5 (4.5-7.5)
[2022-12-04 18:15] LABS: Amphetamines+Metham, Urine Neg (Neg); Barbiturates, Urine Neg (Neg); Benzodiazepine, Urine Neg (Neg); Cocaine, Urine Neg (Neg); MDMA (Ecstacy), Urine Neg (Neg); Methadone, Urine Neg (Neg); Opiate, Urine Neg (Neg); Phencyclidine, Urine Neg (Neg)
[2022-12-04] MEDS ORDERED: rOPINIRole HCL 0.25 MG TABLET PO SCH (21:00)
[2022-12-04] MEDS ORDERED: ACETAMINOPHEN 325 MG TAB PO PRN (21:16)
[2022-12-04] MEDS ORDERED: MAGNESIUM HYDROXIDE SUSP 30 ML UDC PO PRN (21:16)
[2022-12-04] MEDS ORDERED: SODIUM CHLORIDE 0.65% NA SOLN 45 ML (OCEAN) PRN (21:16)
[2022-12-04] MEDS ORDERED: ALUMINUM/MAGNESIUM SUSP 30 ML UDC PO PRN (21:16)
[2022-12-04] MEDS: MIRTAZAPINE TAB 15 MG TAB PO SCH (21:16)
[2022-12-04] MEDS ORDERED: BISMUTH SUBSALICYLATE LIQD 236 ML PO PRN (21:16)
[2022-12-04] MEDS ORDERED: hydrOXYzine HCl 25 MG TAB PO PRN ×2 (21:16)
[2022-12-04] MEDS: lamoTRIgine 25 MG TAB PO SCH (21:17)
[2022-12-05] MEDS ORDERED: [UNRECOGNIZED DRUG - OTHER] SCH ×2 (08:00)
[2022-12-05] MEDS ORDERED: NON-FORMULARY MEDICATION (Bictegrav-Emtricit-Tenofov Ala [Biktarvy] 50-200-25 mg Tablet) PO SCH (09:00)
[2022-12-05] MEDS ORDERED: SERTRALINE HCL 50 MG TABLET PO SCH (09:00)
--- NOTE | 2022-12-05 09:07 | History & Physical ---
Date of Service December 05, 2022 Impression / Recommendations Impression Brett Mc is a 37 year old man with a history of schizoaffective disorder, PTSD, and polysubstance use disorder in early remission who was admitted for worsening depression, SI with plan and aggressive thoughts toward a man he invited to temporarily stay in his home. Diagnostically consistent with schizoaffective disorder current episode of major depression as well as impact from PTSD. Discussed medication treatment options in detail. Discussed risks, benefits and alternatives. Patient would like to continue and consented to lamictal, mirtazapine, and Abilify Maintenna WILKERSON (not due for next dose for ~3 weeks) as well as to increase sertraline for depressive symptoms and he consented to start gabapentin as off-label treatment for restless leg syndrome and prazosin for PTSD night terrors. Reviewed side effects including but not limited to: potential for fatal rash/need for slow titration/need to restart at lowest dose if >3 missed days with lamictal; sedation/increased appetite with mirtazapine; GI, ASHBY, sexual side effects, risk get, worsening of RLS with sertraline; movement (TD, NMS), cardiac (QTc prolongation), and metabolic (stroke, insulin resistance) and necessity for fasting lipid and glucose labwork and AIMS done with score of 0 with Abilify WILKERSON; dizziness/sedation with gabapentin; syncope/low BP with prazosin. The patient's use history suggests history of problematic substance use but currently he has been in early remission for ~11 months, is in the action phase of recovery and remains engaged with [facility] for dual diagnosis treatment which he finds beneficial. MNPR given recent aggressive thoughts toward roommate and symptoms of psychosis. Overall I spent a total of 85 minutes for this admission including review of chart records, review of labwork, direct evaluation of the patient, counseling the patient, ordering medication, risk assessment, discussion with the psychiatric liason RN and documentation in the electronic health record. (1) Schizoaffective disorder: Schizoaffective disorder type: depressive Qualified Code(s): F25.1 - Schizoaffective disorder, depressive type (2) Depression with suicidal ideation: (3) Post traumatic stress disorder (PTSD): (4) HIV (human immunodeficiency virus infection): HIV symptom status: asymptomatic, with no history of HIV-related illness Qualified Code(s): Z21 - Asymptomatic human immunodeficiency virus [HIV] infection status (5) Methamphetamine use disorder, moderate, in early remission: Plan 12/05/2022: The patient was admitted to the [facility]) on q15 min checks (behavioral with suicide precautions) for safety. The patient will participate in group, recreational, and milieu therapies and will be offered additional individual and family sessions as clinically appropriate. -lamictal 25mg HS -increase sertraline to 100mg daily -mirtazapine 15mg HS -start prazosin 1mg HS po -Discontinue Requip and will instead start gabapentin 300mg HS for restless leg syndrome -Fasting lipid panel and glucose and HbA1c tomorrow morning Inventory Assets Strengths: supportive relationships, willing to get treatment Needs: safety and stabilization, medication adjustment, additional coping skills, increased outpatient services Suicide Risk Level Suicide Risk Level: High-Moderate (q15 min suicide checks) (severe depression with SI with plan prior to admission but feels safe in the hospital, able to safety contract and agrees to let nursing/staff know should they develop plan, intent or feel unable to remain safe.) Suicide Risk Level Comments: Risk Factors Assessment Male: Yes : No Do You Have Access To A Gun?: No Health Problems: Yes Mental Health Diagnoses: Yes Substance Use Disorders: Yes Previous Attempt: Yes Family History of Suicide: Yes Previous Psychiatric Hospitalization: Yes Protective Factors Assessment Employed: Yes (Works at a local [employer]) Stable Relationships: Yes Good Rapport with Provider: Yes Psychiatric History Identifying Data BRETT MC is a 37-year-old man who currently lives in [place], has a history of schizoaffective disorder, and was admitted on 12/04/22 19:21 on a 201 voluntary commitment for worsening depression with SI with plan as well as increased auditory hallucinations and thoughts of wanting to head butt his friend. Chief Complaint "I've been having suicidal ideation and tempted to behave violently". History of Present Illness Brett presents for psychiatric admission for worsening depression and SI with plan to overdose on his medications as well as increased auditory hallucinations in the context of multiple psychosocial stressors including starting a new job, upcoming court hearing for mental health court/previous drug possession charges and thoughts of harm toward his friend who he allowed to move into his trailer but now this individual has outstayed his welcome and will not leave. In the ED he reported thoughts of wanting to "headbutt" this acquittance and police were informed by case management as duty to warn and to inform this man to move out. He states the voices tend to be pretty neutral and he feels like it is "the holy spirit". He endorses depressive symptoms for the last few months including tearfulness, anhedonia, decreased motivation, self-guilt, helplessness, hopelessness, decreased energy, no change in appetite, and decreased sleep. SI has been occurring for the last few weeks and they started to intensify to the "point where I don't even see why I wake up". Endorses PTSD symptoms including avoidance, crying "for no reason", flashbacks/intrusive memories, and night terrors (every other night). He is currently prescribed psychiatric medications: Abilify maintenna 400mg WILKERSON (last injection was last week), lamictal 25mg HS (started this last week), mirtazapine 15mg HS (helps with sleep, but doesn't help with staying asleep), and sertraline 50mg daily (few months, stopped it for priapism but no difference so restarted recently). Additional history as documented by ED CM on 12/04/2022: "Met with patient bedside along with Antonella Sandoval from [facility] MH/ID to complete mental health evaluation. Patient presents calm, sad and cooperative in answering all questions asked of him. Today, patient woke up and was having intense suicidal ideations with a plan to overdose on his medications. Patient reports previous suicide attempt of overdosing at age 18 and then overdosing on meth, 7 years ago. Patient was admitted for psychiatric treatment to [facility] in 2021 and multiple admissions as an adolescent while residing in [place]. Patient reports he is experiencing what he identifies at homicidal ideations towards a friend who he allowed to stay in his home for a few days, but now he will not leave. Patient reports he has thoughts to head butt him in the mouth, likening these thoughts more so as thoughts of aggression. Patient denies aggressive or assaultive behaviors. Patient is on probation with [facility] and Krystle Lan is his textile technical officer. Patient was incarcerated for burglary and possession of drugs for six months and was released on August 11, 2022. Patient reports he is able to see peoples auras and energy and oftentimes hears voices, not elaborating what they are saying, but oftentimes responds to the voices. Patient identifies stressors as recent relocation, financial, job, interpersonal difficulty and ongoing mental health issues. Patient reports depressive symptoms as feelings of helpless/hopelessness, loss of daily functioning, lack of motivation, isolative, anhedonia, decrease in ADLs and appetite and broken sleep, reporting nightmares, restlessness and broken sleep and does not feel rested upon wakening. Patient describes severe anxiety on most days with chest discomfort, shortness of breath, sweating, trembling and sleep disturbances. Patient reports current and history of punching himself in the face in an effort to control his feelings, this started when he was an adolescent. Patient has a history of alcohol and drug abuse, reporting use of crystal meth and methamphetamines. Patient does not use tobacco. Patient recently relocated into a new trailer and offered a friend a place to stay for a few days and he will not leave to which is causing he great distress and anger. Patient works at a local [employer] and does not find satisfaction in his job. Patient likes to sing and dance, but has lost all interest in activities and hobbies. Per medical record, patient is diagnosed with HIV and is prescribed Biktarvy, reporting he is compliant. Patient sees Kassie at [facility] for medication management and was recently prescribed Lamictal to which he does not believe is working, but continues to take. Patient sees Rosetta at [facility] for dual diagnosis, attending therapy and group meetings." Psychiatric ROS notable for history of get but struggles to describe these symptoms or when it last occurred. Also history of psychosis. Past Psychiatric History Current Psychiatric Diagnosis: Schizoaffective, Agoraphobia and PTSD Outpatient Services: [facility] for psych medications, [facility], dual diagnosis therapy at [facility] Previous Psych Admissions: 5 times total, last at [facility] Jan 2022 Do You Have Access To A Gun?: No History of Previous Suicide Attempt: Yes Describe Attempts in the Past: 3x-last at age 29 (overdose on medications) Past Medication Trials: "all of them"-seroquel, trazodone, Geodone, [place], risperidone, Depakote, Effexor, Lexapro, Wellbutrin Past Head Trauma/Neuro History History of Concussion/Seizure: No Allergies Allergy/AdvReac Type Severity Reaction Status Date / Time quetiapine [From Seroquel] Allergy Unknown ON MED LIST Verified 12/05/22 13:32 trazodone Allergy Unknown ON MED LIST Verified 12/05/22 13:32 Home Medications Medication Instructions Recorded Confirmed Type bictegravir 50 mg-emtricitabine 1 tab PO QAM 05/09/22 12/04/22 History 200 mg-tenofovir alafenam 25 mg tablet (Biktarvy) ibuprofen 600 mg tablet 600 mg PO TID 05/09/22 12/04/22 History mirtazapine 15 mg tablet 15 mg PO HS 05/09/22 12/04/22 History ropinirole 0.5 mg tablet 0.5 mg PO HS 05/09/22 12/04/22 History sertraline 50 mg tablet 50 mg PO DAILY 05/09/22 12/04/22 History lamotrigine 25 mg tablet (Lamictal) 25 mg PO HS 12/04/22 12/04/22 History aripiprazole 400 mg suspension, 400 mg IM MONTHLY 12/05/22 12/05/22 History extended rel.intramuscular syringe (Zuhair Diaz) Family History Family History of: Other-List under Comment (brother with down syndrome) and Suicide Completion (biological father) Alcohol History Hx of Alcohol Use Over the Past 12 Months: No AUDIT Total Score: 0 Reports no history of problematic use, doesn't currently drink any alcohol and cannot recall last time he had a drink Smoking Use Smoking Status: Never smoker Substance History Hx of Prescription Med Misuse Over the Past 12 Months: Yes (Hx of use disorder of amphetamines) Hx of Over the Counter Med Misuse Over the Past 12 Months: No Hx of Inhalent Misuse Over the Past 12 Months: No Hx of Organic Substance Use Over the Past 12 Months: Yes (medical marijuana) Hx of Illegal Substances/Street Drug Use Over Past 12 Months: Yes (Hx of use disorder of crystal meth) Problems as a Result of Past Substance Use: Arrested History of crystal meth via IV use since age 15, last use Jan 2022. feels he's been able to stay away from use due to not wanting to return to nursing home and not wanting to let down his support group at [facility]. History of amphetamines use disorder of Adderall but no use in years. Medical marijuana via vape, likes that it relaxes him, help with sleep and helps with appetite. Doesn't like that it can make him not want to be physical active. 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[employer]) Marital Status: Single Number Of Children: 0 Beliefs That Will Affect Care: None Current Legal Problems: Yes (mental health court) Hx Legal Problems: Yes (hx incarceration for drug possession, car theft, disorde rly conduct) Hx Traumatic Life Events: Yes Patient History Medical History Abscess of face Active intravenous drug use Encounter for pre-operative examination Facial cellulitis HIV (human immunodeficiency virus infection) Preseptal cellulitis Priapism Schizoaffective disorder Surgical History History of incision and drainage (05/11/22) Right Intraoral Facial Abscess Incision and Drainage, Extraction of 5-6 Teeth(Right) - Uriel Valencia DMD No history of previous surgery Social History Smoking Status: Never smoker Do You Dip or Chew Tobacco: No; Hx Alcohol Use: No Hx Substance Use: Yes Last Used Substance: Unknown Preferred Language: Croatian Communication Ability: Effective Sack Sorter Required: No Beliefs That Will Affect Care: None Current Living Situation: Other [facility] Feels Safe at Home: Yes Gender Identity: Male Assistive Devices: None Review of Systems Review of Systems: All systems reviewed & are unremarkable except as noted in HPI & below Physical Exam Psychiatric: Orientation: alert and oriented x 3 Apperance: appropriately dressed and appropriately groomed Eye Contact: good eye contact Motor Behavior: no abnormal motor movements Speech: normal rate/rhythm/volume of speech Affect: + depressed affect and + anxious affect Mood: + depressed mood and + anxious mood Thought Process: linear/logical thought process and + concrete thought process Thought Content: + delusions (can sense people's auras ) Suicidal Thoughts: denies suicidal intent; + reports suicidal thoughts and + reports suicidal plan (none for hospital, to overdose outside of hospital) Homicidal Thoughts: denies homicidal thoughts Hallucinations: + auditory hallucinations and + visual hallucinations (can see light around people) Cognition: recent memory grossly intact, remote memory grossly intact, attention grossly intact and language grossly intact Estimated Intelligence: consistent with education level Insight: + limited insight Judgment: + limited judgement Vital Signs (Past 24 Hours): Last Vital Signs Temp 36.8 C 12/05/22 06:43 Pulse 80 12/05/22 06:44 Resp 16 12/05/22 06:43 BP 130/90 12/05/22 06:44 Pulse Ox 95 12/04/22 19:39 O2 Del Method Room Air 12/04/22 20:09 Exam Statement: A physical exam was performed in the ED by Dr. Logan for the purposes of medical clearance. I accept that physical as correct and adequate for the purposes of the inpatient physical exam. Results & Data ([facility] [place]) Laboratory Results Laboratory Results - last 24 hr 12/04/22 12/04/22 12/04/22 15:55 15:55 15:55 WBC 5.25 RBC 5.66 Hgb 15.8 Hct 45.8 MCV 80.9 MCH 27.9 MCHC 34.5 RDW Std Deviation 44.2 RDW Coeff of Jay Jay 15.1 H Plt Count 213 MPV 9.6 Immature Gran % (Auto) 0.2 Neut % (Auto) 70.4 Lymph % (Auto) 20.4 [place] % (Auto) 6.3 Eos % (Auto) 2.3 Baso % (Auto) 0.4 Neut # (Auto) 3.70 Lymph # (Auto) 1.07 L [place] # (Auto) 0.33 Eos # (Auto) 0.12 Baso # (Auto) 0.02 Immature Gran # (Auto) 0.01 Sodium 140 Potassium 3.8 Chloride 109 H Carbon Dioxide 25 Anion Gap 6 BUN 15 Creatinine 1.04 Est Cr Clr Drug Dosing 98.4 Est GFR ( Amer) 107.3 Est GFR (Non-Af Amer) 92.6 BUN/Creatinine Ratio 14.4 Glucose 112 H Calcium 9.9 Total Bilirubin 1.7 H AST 25 ALT 38 Alkaline Phosphatase 62 Total Protein 7.9 Albumin 4.6 Globulin 3.3 Albumin/Globulin Ratio 1.4 TSH 0.648 Urine Color Urine Appearance Urine pH Ur Specific [place] Urine Protein Urine Glucose (UA) Urine Ketones Urine Blood Urine Nitrite Urine Bilirubin Urine Urobilinogen Ur Leukocyte Esterase Nasal Screen MRSA (PCR) Salicylates < 3.0 L Urine Opiates Screen Ur Methadone, Qual Acetaminophen < 3 L Urine Barbiturates Ur Phencyclidine (PCP) U Amphetamin/Meth Scrn MDMA (Ecstasy) Screen U Benzodiazepines Scrn Ur Cocaine Metabolite U Marijuana (THC) Screen U Marijuana THC Carboxy Drug Screen Comment Ethyl Alcohol mg/dL SARS-CoV-2, RNA, NAAT 12/04/22 12/04/22 12/04/22 15:55 15:55 17:20 WBC RBC Hgb Hct MCV MCH MCHC RDW Std Deviation RDW Coeff of Jay Jay Plt Count MPV Immature Gran % (Auto) Neut % (Auto) Lymph % (Auto) [place] % (Auto) Eos % (Auto) Baso % (Auto) Neut # (Auto) Lymph # (Auto) [place] # (Auto) Eos # (Auto) Baso # (Auto) Immature Gran # (Auto) Sodium Potassium Chloride Carbon Dioxide Anion Gap BUN Creatinine Est Cr Clr Drug Dosing Est GFR ( Amer) Est GFR (Non-Af Amer) BUN/Creatinine Ratio Glucose Calcium Total Bilirubin AST ALT Alkaline Phosphatase Total Protein Albumin Globulin Albumin/Globulin Ratio TSH Urine Color Yellow Urine Appearance Clear Urine pH 8.5 H Ur Specific [place] 1.013 Urine Protein Negative Urine Glucose (UA) Negative Urine Ketones Negative Urine Blood Negative Urine Nitrite Negative Urine Bilirubin Negative Urine Urobilinogen Positive H Ur Leukocyte Esterase Negative Nasal Screen MRSA (PCR) Salicylates Urine Opiates Screen Ur Methadone, Qual Acetaminophen Urine Barbiturates Ur Phencyclidine (PCP) U Amphetamin/Meth Scrn MDMA (Ecstasy) Screen U Benzodiazepines Scrn Ur Cocaine Metabolite U Marijuana (THC) Screen U Marijuana THC Carboxy Drug Screen Comment Ethyl Alcohol mg/dL < 10.0 SARS-CoV-2, RNA, NAAT NEGATIVE 12/04/22 12/04/22 12/04/22 17:20 17:20 Unknown WBC RBC Hgb Hct MCV MCH MCHC RDW Std Deviation RDW Coeff of Jay Jay Plt Count MPV Immature Gran % (Auto) Neut % (Auto) Lymph % (Auto) [place] % (Auto) Eos % (Auto) Baso % (Auto) Neut # (Auto) Lymph # (Auto) [place] # (Auto) Eos # (Auto) Baso # (Auto) Immature Gran # (Auto) Sodium Potassium Chloride Carbon Dioxide Anion Gap BUN Creatinine Est Cr Clr Drug Dosing Est GFR ( Amer) Est GFR (Non-Af Amer) BUN/Creatinine Ratio Glucose Calcium Total Bilirubin AST ALT Alkaline Phosphatase Total Protein Albumin Globulin Albumin/Globulin Ratio TSH Urine Color Urine Appearance Urine pH Ur Specific [place] Urine Protein Urine Glucose (UA) Urine Ketones Urine Blood Urine Nitrite Urine Bilirubin Urine Urobilinogen Ur Leukocyte Esterase Nasal Screen MRSA (PCR) Negative Salicylates Urine Opiates Screen Neg Ur Methadone, Qual Neg Acetaminophen Urine Barbiturates Neg Ur Phencyclidine (PCP) Neg U Amphetamin/Meth Scrn Neg MDMA (Ecstasy) Screen Neg U Benzodiazepines Scrn Neg Ur Cocaine Metabolite Neg U Marijuana (THC) Screen Pos H U Marijuana THC Carboxy Pending Drug Screen Comment Pending Ethyl Alcohol mg/dL SARS-CoV-2, RNA, NAAT Current Inpatient Medications Current Inpatient Medications: Current Inpatient Medications Acetaminophen (Acetaminophen 325 Mg Tab) 650 mg PO Q4H PRN PRN Reason: Headache or Minor Fever Stop: 01/03/23 21:15 Al Hydrox/Mg Hydrox/Simethicone (Aluminum/Magnesium Susp 30 Ml Udc) 30 ml PO Q4H PRN PRN Reason: GI Upset Stop: 01/03/23 21:15 Bismuth Subsalicylate (Bismuth Subsalicylate Liqd 236 Ml) 15 ml PO PRN PRN PRN Reason: Loose Stool Stop: 01/03/23 21:15 Hydroxyzine HCl (Hydroxyzine Hcl 25 Mg Tab) 50 mg PO HSZ PRN PRN Reason: Insomnia Stop: 01/03/23 21:15 Hydroxyzine HCl (Hydroxyzine Hcl 25 Mg Tab) 25 mg PO Q4H PRN PRN Reason: Anxiety Stop: 01/03/23 21:15 Lamotrigine (Lamotrigine 25 Mg Tab) 25 mg PO HS CAMMIE Stop: 01/03/23 20:59 Last Admin: 12/04/22 21:17 Dose: 25 mg Magnesium Hydroxide (Magnesium Hydroxide Susp 30 Ml Udc) 30 ml PO DAILY PRN PRN Reason: Constipation Stop: 01/03/23 21:15 Mirtazapine (Mirtazapine Tab 15 Mg Tab) 15 mg PO HS CAMMIE Stop: 01/03/23 20:59 Last Admin: 12/04/22 21:16 Dose: 15 mg Miscellaneous (Order Awaiting Action: Klnqozsyz-Bbzkjxpz-Gtnyjht Ala [Biktarvy] 50-200-25 Mg Tablet) 1 each N/A QS CAMMIE Stop: 01/04/23 07:59 Last Admin: 12/05/22 08:54 Dose: Not Given Ropinirole HCl (Ropinirole Hcl 0.25 Mg Tablet) 0.5 mg PO HS CAMMIE Stop: 01/03/23 20:59 Last Admin: 12/04/22 21:16 Dose: 0.5 mg Sertraline HCl (Sertraline Hcl 50 Mg Tablet) 50 mg PO DAILY CAMMIE Stop: 01/04/23 08:59 Last Admin: 12/05/22 08:57 Dose: 50 mg Sodium Chloride (Sodium Chloride 0.65% Na Soln 45 Ml ([place])) 1 - 2 sprays NA PRN PRN PRN Reason: Nasal Dryness/Congestion Stop: 01/03/23 21:15
[2022-12-05] MEDS ORDERED: IBUPROFEN 600 MG TAB PO PRN (13:26)
[2022-12-05] MEDS: MIRTAZAPINE TAB 15 MG TAB PO SCH (21:38)
[2022-12-05] MEDS: GABAPENTIN 300 MG CAP PO SCH (21:38)
[2022-12-05] MEDS: lamoTRIgine 25 MG TAB PO SCH (21:38)
[2022-12-05] MEDS ORDERED: PRAZOSIN HCL 1 MG CAP PO SCH (22:00)
[2022-12-06] MEDS ORDERED: SERTRALINE HCL 100 MG TABLET PO SCH (09:00)
[2022-12-06] MEDS: BIKTARVY PO SCH (09:04)
[2022-12-06 09:05] LABS: Chol HDL Ratio 4.9 (0-5)
--- NOTE | 2022-12-06 09:08 | Psychiatric Progress Note ---
Date of Service December 06, 2022 Impression / Recommendations Impression Brett Jurado is a 37 year old man with a history of schizoaffective disorder, PTSD, and polysubstance use disorder in early remission who was admitted for worsening depression, SI with plan and aggressive thoughts toward a man he invited to temporarily stay in his home. Diagnostically consistent with schizoaffective disorder current episode of major depression as well as impact from PTSD. MNPR given recent aggressive thoughts toward roommate and symptoms of psychosis. 12/06/2022: He responded well to trial of gabapentin for RLS but trial of prazosin may have caused episode of priapism this morning requiring urology intervention. Given extended priapism he consented to discontinuing sertraline, mirtazapine and prazosin for the time being. Based on review of psychiatric medication literature it seems that his Abilify WILKERSON carries the highest risk for future priapism but will hold off on restarting mirtazapine or trial of an alterative SSRI for now. He consents to having gabapentin available off-label for anxiety (given at least one small study suggesting this can be helpful for refractory priapism so should not increase risk of future episodes) and Klonopin if further procedures are required. Greatly appreciate help of urology service and they recommended option for oxyocodone prn for pain from procedure if acetaminophen is insufficient. Will use Klonopin and oxycodone as sparingly as possible given his significant substance use history. Overall, I spent a total of 60 minutes with this case including review of chart records, direct evaluation of the patient at bedside, counseling the patient, discussion during interdisciplinary treatment rounds, risk assessment, ordering medications, discussing with urology consultants and documentation in the electronic health record. (1) Schizoaffective disorder: (2) Depression with suicidal ideation: (3) Post traumatic stress disorder (PTSD): (4) HIV (human immunodeficiency virus infection): (5) Methamphetamine use disorder, moderate, in early remission: Plan 12/06/2022: * Discontinue sertraline, mirtazapine and prazosin * Increase gabapentin to 300mg HS as well as 100mg TID prn for anxiety * Continue lamictal 25mg HS (a few cases studies of possible priapism but felt to be much lower risk than alternative psychotropic options for mood stabilization at this point) 12/05/2022: The patient was admitted to [facility]) on q15 min checks (behavioral with suicide precautions) for safety. The patient will participate in group, recreational, and milieu therapies and will be offered additional individual and family sessions as clinically appropriate. -lamictal 25mg HS -increase sertraline to 100mg daily -mirtazapine 15mg HS -start prazosin 1mg HS po -Discontinue Requip and will instead start gabapentin 300mg HS for restless leg syndrome -Fasting lipid panel and glucose and HbA1c tomorrow morning Inventory Assets Strengths: supportive relationships, willing to get treatment Needs: safety and stabilization, medication adjustment, additional coping skills, increased outpatient services Suicide Risk Level Suicide Risk Level: High-Moderate (q15 min suicide checks) (severe depression with SI with plan prior to admission but feels safe in the hospital, able to safety contract and agrees to let nursing/staff know should they develop plan, intent or feel unable to remain safe.) Suicide Risk Level Comments: Risk Factors Assessment Male: Yes : No Do You Have Access To A Gun?: No Health Problems: Yes Mental Health Diagnoses: Yes Substance Use Disorders: Yes Previous Attempt: Yes Family History of Suicide: Yes Previous Psychiatric Hospitalization: Yes Protective Factors Assessment Employed: Yes (Works at a local [employer]) Stable Relationships: Yes Good Rapport with Provider: Yes Interval History Identifying Information BRETT JURADO is a 37-year-old man who currently lives in [place], has a history of schizoaffective disorder, and was admitted on 12/04/22 19:21 on a 201 voluntary commitment for worsening depression with SI with plan as well as increased auditory hallucinations and thoughts of wanting to head butt his friend. Chief Complaint "I'm just in pain". Review of Systems Sleep Information Total Hours of Sleep: 6.5 Meal Information Percent Meal Consumed - Breakfast: 100 Percent Meal Consumed - Lunch: 70 Percent Meal Consumed - Dinner: 100 Subjective Subjective Patient was seen & assessed and interval progress reviewed with treatment team nursing and social work. Woke up this morning with sustained priapism for which urology was consulted. After procedure he noted significant pain but showed some improvement after showering. He found the gabapentin helpful last night for RLS. Discussed stopping various psychiatric medications due to priapism though suspect prazosin may have been culprit leading to episode this morning. Having some self-harm thoughts today. Still with depression. Physical Exam Psychiatric Orientation: alert and oriented x 3 Apperance: appropriately dressed and appropriately groomed Eye Contact: good eye contact Motor Behavior: no abnormal motor movements Speech: normal rate/rhythm/volume of speech Affect: + depressed affect and + anxious affect Mood: + depressed mood and + anxious mood Thought Process: linear/logical thought process and + concrete thought process Thought Content: reality based without delusions Suicidal Thoughts: denies suicidal intent; + reports suicidal thoughts and + reports suicidal plan (none for hospital, to overdose outside of hospital) Homicidal Thoughts: denies homicidal thoughts Hallucinations: + auditory hallucinations and + visual hallucinations (can see light around people) Cognition: recent memory grossly intact, remote memory grossly intact, attention grossly intact and language grossly intact Estimated Intelligence: consistent with education level Insight: + limited insight Judgment: + limited judgement Vital Signs (Past 24 Hours) Last Vital Signs Temp 36.9 C 12/06/22 06:42 Pulse 84 12/06/22 06:43 Resp 16 12/06/22 06:42 BP 111/73 12/06/22 06:43 Pulse Ox 95 12/04/22 19:39 O2 Del Method Room Air 12/04/22 20:09 Results & Data ([facility]) Laboratory Results Laboratory Results - last 24 hr 12/06/22 12/06/22 08:21 08:21 Estimat Average Glucose Pending Hemoglobin A1c Pending Triglycerides 110 Cholesterol 148 LDL Cholesterol, Calc 96 VLDL Cholesterol, Calc 22 HDL Cholesterol 30 Cholesterol/HDL Ratio 4.9 Current Inpatient Medications Current Inpatient Medications: Current Inpatient Medications Acetaminophen (Acetaminophen 325 Mg Tab) 650 mg PO Q4H PRN PRN Reason: Headache or Minor Fever Stop: 01/03/23 21:15 Al Hydrox/Mg Hydrox/Simethicone (Aluminum/Magnesium Susp 30 Ml Udc) 30 ml PO Q4H PRN PRN Reason: GI Upset Stop: 01/03/23 21:15 Bictegravir/Emtricitabine/Tenofovir (Biktarvy) 1 each PO QAM CAMMIE Stop: 01/05/23 08:59 Last Admin: 12/06/22 09:04 Dose: 1 each Bismuth Subsalicylate (Bismuth Subsalicylate Liqd 236 Ml) 15 ml PO PRN PRN PRN Reason: Loose Stool Stop: 01/03/23 21:15 Gabapentin (Gabapentin 300 Mg Cap) 300 mg PO HS CAMMIE Stop: 01/04/23 21:59 Last Admin: 12/05/22 21:38 Dose: 300 mg Hydroxyzine HCl (Hydroxyzine Hcl 25 Mg Tab) 50 mg PO HSZ PRN PRN Reason: Insomnia Stop: 01/03/23 21:15 Hydroxyzine HCl (Hydroxyzine Hcl 25 Mg Tab) 25 mg PO Q4H PRN PRN Reason: Anxiety Stop: 01/03/23 21:15 Ibuprofen (Ibuprofen 600 Mg Tab) 600 mg PO TID PRN PRN Reason: tooth pain Stop: 01/04/23 13:59 Lamotrigine (Lamotrigine 25 Mg Tab) 25 mg PO HS CAMMIE Stop: 01/03/23 20:59 Last Admin: 12/05/22 21:38 Dose: 25 mg Magnesium Hydroxide (Magnesium Hydroxide Susp 30 Ml Udc) 30 ml PO DAILY PRN PRN Reason: Constipation Stop: 01/03/23 21:15 Mirtazapine (Mirtazapine Tab 15 Mg Tab) 15 mg PO HS CAMMIE Stop: 01/03/23 20:59 Last Admin: 12/05/22 21:38 Dose: 15 mg Prazosin HCl (Prazosin Hcl 1 Mg Cap) 1 mg PO HS CAMMIE Stop: 01/04/23 21:59 Last Admin: 12/05/22 21:38 Dose: 1 mg Sertraline HCl (Sertraline Hcl 100 Mg Tablet) 100 mg PO DAILY CAMMIE Stop: 01/05/23 08:59 Sodium Chloride (Sodium Chloride 0.65% Na Soln 45 Ml (Camp)) 1 - 2 sprays NA PRN PRN PRN Reason: Nasal Dryness/Congestion Stop: 01/03/23 21:15 Mental Health & Subst Abuse Tx Therapist Name of Therapist: Courtney @[facility] Date of Therapist Appointment: 12/05/22 Tax Agent Name of Tax Agent: Antonella (CM plans to visit during this hospitalization 12/05 and 12/08) Post Discharge Appointments Primary Care Physician Name Of Family Doctor/PCP: Dr. Vazquez @[facility] Date of Future Appointment with PCP: Dr. Vazquez (1) Schizoaffective disorder Schizoaffective disorder type: depressive Qualified Code(s): F25.1 - Schizoaffective disorder, depressive type (4) HIV (human immunodeficiency virus infection) HIV symptom status: asymptomatic, with no history of HIV-related illness Qualified Code(s): Z21 - Asymptomatic human immunodeficiency virus [HIV] infection status
[2022-12-06 11:03] LABS: Estimated Average Glucose 103 mg/dl; Hemoglobin A1C 5.2 % (4.5-5.6)
[2022-12-06 12:57] LABS: Oxygen Saturation VBG < 60.0 %; PCO2 VBG 119 mmHg (38-50); PO2 VBG 41 mmHg; pH VBG < 7.00 (7.36-7.41)
[2022-12-06] MEDS ORDERED: PHENYLEPHRINE HCL 10 MG/ML VIAL ITC ONE (13:30)
[2022-12-06] MEDS ORDERED: LIDOCAINE 1% LOCAL 20 ML VIAL INFIL SCH (14:00)
--- NOTE | 2022-12-06 14:44 | Urology Consultation ---
Date of Consultation December 06, 2022 Assessment & Plan (1) Ischemic priapism: Plan 37-year-old male admitted for psychiatric issues who developed an ischemic priapism this morning. Blood gas was consistent with ischemic priapism. I discussed with the patient that I recommended a bedside aspiration with possible injection of phenylephrine and if this did not work I would need to take him to the operating room for a distal shunt. Written consent was obtained from the patient and risk and benefits were discussed. Procedure: Patient was prepped and draped in a sterile fashion. I performed a dorsal penile block with 10 cc of 1% lidocaine. I initially placed a 14 Maur[place] Angiocath in the mid shaft with return of dark red blood. This did not aspirate well so I removed this and then placed an 18-gauge needle. This appeared to be more appropriately in the corpora and I was able to aspirate roughly 20 to 30 cc of dark blood. A decent amount of blood drained between aspirations as well. The penis detumesced. Patient reported pain improved. The 18-gauge needle was removed. I typically would wrap the penis with Janeth and Coban however these are not allowed in the behavioral health unit. He was hemostatic so I think we can watch this conservatively. Recommended that staff reassess in 1 hour and if he remains flaccid he can have a diet. If it were to come back I would likely inject phenylephrine if this did not work I would then need to take him to the OR for a distal shunt. I realize this is a difficult situation as without his psych meds his psychiatric issues get worse, however I think it is prudent that we attempt to find different medications as its not sustainable to keep giving him medications that will induce a priapism. There is unfortunately nothing from a medication or surgical standpoint that I can offer that will decrease his risk of priapism. Urology to follow. Greater than 60 minutes was spent with patient. History of Present Illness Reason for Consultation: Ischemic priapism Attending Physician: Dora Caballero MD History of Present Illness 37-year-old male with a history of HIV, sickle cell trait and psychiatric illness who has a history of recurrent priapism's likely due to psychiatric medications. He previously has been irrigated and injected with phenylephrine in the ED with detumescence. I saw him in clinic on 11/14/2022 and recommended that his psychiatrist attempt to find other medications as there is nothing I could do to prevent priapism from happening. Patient was recently admitted to the behavioral health unit due to worsening psychiatric illness developed a priapism at 6 AM this morning. He did not notify staff until later in the morning. A blood gas was obtained which was ischemic in nature with a pH of less than 7 and a PCO2 of 119. He reported pain with his erection. Allergies Allergy/AdvReac Type Severity Reaction Status Date / Time quetiapine [From Seroquel] Allergy Unknown ON MED LIST Verified 12/05/22 13:32 trazodone Allergy Unknown ON MED LIST Verified 12/05/22 13:32 Home Medications Medication Instructions Recorded Confirmed Type bictegravir 50 mg-emtricitabine 1 tab PO QAM 05/09/22 12/04/22 History 200 mg-tenofovir alafenam 25 mg tablet (Biktarvy) lamotrigine 25 mg tablet (Lamictal) 25 mg PO HS 12/04/22 12/04/22 History aripiprazole 400 mg suspension, 400 mg IM MONTHLY 12/05/22 12/06/22 History extended rel.intramuscular syringe (Abilifjosr Maintena) Patient History Medical History Abscess of face Active intravenous drug use Encounter for pre-operative examination Facial cellulitis HIV (human immunodeficiency virus infection) Preseptal cellulitis Priapism Schizoaffective disorder Surgical History History of incision and drainage (05/11/22) Right Intraoral Facial Abscess Incision and Drainage, Extraction of 5-6 Teeth(Right) - Uriel Valencia DMD No history of previous surgery Social History Smoking Status: Never smoker Do You Dip or Chew Tobacco: No; Hx Alcohol Use: No Hx Substance Use: Yes Last Used Substance: Unknown Preferred Language: Albanian Communication Ability: Effective Freight Air Brake Fitter Required: No Beliefs That Will Affect Care: None Current Living Situation: Other [facility] Feels Safe at Home: Yes Gender Identity: Male Assistive Devices: None Review of Systems Review of Systems: 14 point review of systems negative outside of what is listed above in HPI Physical Exam Physical Exam: General: Alert and oriented, no acute distress HEENT: Normocephalic, mucous membranes moist Pulmonary: Nonlabored respirations Abdomen: Nondistended : Circumcised phallus with orthotopic meatus. Erect and painful to palpation, exam consistent with ischemic priapism. Testicles descended bilaterally and palpably normal. Extremities: Moves all 4 spontaneously Neuro: No gross deficits Skin: Warm, dry, no rashes noted Results & Data Vital Signs (Past 12 Hours) Vital Signs Temp Pulse Resp BP 12/06/22 06:43 84 111/73 12/06/22 06:42 36.9 C 73 16 113/71 PG Care Time/CCT Total # of Minutes Spent Total Time Spent with Patient: Total time spent is greater than 50% in coordination of care (as documented) at patient's floor/unit and/or counseling patient: Coding Level of Care Code 88118 IN/OBS CONSULT LVL 4,60M Diagnoses Ischemic priapism N48.39
[2022-12-06] MEDS ORDERED: clonazePAM 0.25 MG TAB PO PRN (14:59)
[2022-12-06] MEDS: GABAPENTIN 100 MG CAP PO PRN (15:24)
[2022-12-06] MEDS ORDERED: oxyCODONE HCL IR 5 MG TAB (IMMEDIATE RELEASE) PO PRN (16:12)
[2022-12-06] MEDS: lamoTRIgine 25 MG TAB PO SCH (21:57)
[2022-12-06] MEDS: GABAPENTIN 300 MG CAP PO SCH (21:57)
[2022-12-07] MEDS: BIKTARVY PO SCH (08:43)
--- NOTE | 2022-12-07 10:30 | Psychiatric Progress Note ---
Date of Service December 07, 2022 Impression / Recommendations Impression Brett Mc is a 37 year old man with a history of schizoaffective disorder, PTSD, and polysubstance use disorder in early remission who was admitted for worsening depression, SI with plan and aggressive thoughts toward a man he invited to temporarily stay in his home. Diagnostically consistent with schizoaffective disorder current episode of major depression as well as impact from PTSD. MNPR given recent priapism 12/07/2022: Reporting improving mood and no SI today. He is finding the gabapentin helpful for sleep, RLS symptoms and likes the option of having it available for anxiety. Based on extensive literature review there are case reports of almost all psychotropic medications causing episodes of priapism but larger studies seem to indicate highest risk for most antipsychotics due to alpha adrenergic affinity (though abilify has lower affinity compared to some other antipsychotics it is still known to contribute and timing of the start of his Abilify WILKERSON seems to coincide with recent ED visits for priapism and multiple case reports of recurrent priapism with abilify). Olanzapine appears to have the lowest risk among the antipsychotic class given low alpha-1 affinity. However, priapism can also occur with use of SSRIs including escitalopram, sertraline, fluoxetine, sertraline, citalopram. And then there are also case reports of fluvoxamine and paroxetine also causing priapism as well as Wellbutrin and the SNRIs. There are a few case reports of lamictal causing priapism but this seems to be lower risk than most other mood stabilizer options. Mirtazapine has also caused priapism in case reports. Challengingly he reports history of priapism even pre-dating any psychiatric medication trials which could be due to his sickle cell trait and substance use history but certainly it seems it has also been exacerbated historically (with seroquel and trazodone) and recently with psychiatric medication trials. Reviewed options for psychiatric medications given priapism risks and he does think he may have been experiencing more priapism episodes since Abilify WILKERSON was started but also feels this is necessary to help with his psychosis. Reviewed this can also help with mood stabilization vs option for alternative SSRI trial. He would like to try just taking the Abilify WILKERSON via outpatient schedule as well as lamictal and requests increasing the dose of gabapentin to further help with sleep for now. Reviewed that if priapism persists despite eliminating mirtazapine and sertraline that then would consider using olanzapine instead of abilify in the future. Will attempt to discuss this with his [place] provider as well. Overall, I spent a total of 50 minutes with this case including review of chart records, direct evaluation of the patient at bedside, counseling the patient, discussion during interdisciplinary treatment rounds, risk assessment, reviewing priapism case reports/literature and documentation in the electronic health record. (1) Schizoaffective disorder: (2) Depression with suicidal ideation: (3) Post traumatic stress disorder (PTSD): (4) HIV (human immunodeficiency virus infection): (5) Methamphetamine use disorder, moderate, in early remission: Plan 12/07/2022: * Continue lamictal 25mg HS * Increase gabapentin to 450mg HS and continue 100mg TID prn for anxiety * Remains on Abilify WILKERSON 400mg via outpatient schedule (last injection ~ 1 week ago) 12/06/2022: * Discontinue sertraline, mirtazapine and prazosin * Increase gabapentin to 300mg HS as well as 100mg TID prn for anxiety * Continue lamictal 25mg HS (a few cases studies of possible priapism but felt to be much lower risk than alternative psychotropic options for mood stabilization at this point) 12/05/2022: The patient was admitted to the [facility] ([facility] mental health unit) on q15 min checks (behavioral with suicide precautions) for safety. The patient will participate in group, recreational, and milieu therapies and will be offered additional individual and family sessions as clinically appropriate. -lamictal 25mg HS -increase sertraline to 100mg daily -mirtazapine 15mg HS -start prazosin 1mg HS po -Discontinue Requip and will instead start gabapentin 300mg HS for restless leg syndrome -Fasting lipid panel and glucose and HbA1c tomorrow morning Inventory Assets Strengths: supportive relationships, willing to get treatment Needs: safety and stabilization, medication adjustment, additional coping skills, increased outpatient services Suicide Risk Level Suicide Risk Level: Moderate (q15 min suicide checks) (severe depression with SI with plan prior to admission but mood improving, now denies SI, feels safe in the hospital, able to safety contract and agrees to let nursing/staff know should they develop plan, intent or feel unable to remain safe.) Suicide Risk Level Comments: Risk Factors Assessment Male: Yes : No Do You Have Access To A Gun?: No Health Problems: Yes Mental Health Diagnoses: Yes Substance Use Disorders: Yes Previous Attempt: Yes Family History of Suicide: Yes Previous Psychiatric Hospitalization: Yes Protective Factors Assessment Employed: Yes (Works at a local [employer]) Stable Relationships: Yes Good Rapport with Provider: Yes Interval History Identifying Information BRETT MC is a 37-year-old man who currently lives in [place], has a history of schizoaffective disorder, and was admitted on 12/04/22 19:21 on a 201 voluntary commitment for worsening depression with SI with plan as well as increased auditory hallucinations and thoughts of wanting to head butt his friend. Chief Complaint "Much better than I had been". Review of Systems Sleep Information Total Hours of Sleep: 7 Meal Information Percent Meal Consumed - Breakfast: 100 Percent Meal Consumed - Lunch: 0 Percent Meal Consumed - Dinner: 100 Nutrition Comment: NPO at lunch Subjective Subjective Patient was seen & assessed and interval progress reviewed with treatment team nursing and social work. Was able to attend two groups last evening. No further priapism issues, slept well. Today reports no pain. Feels his mood is improving, denies SI. Thinks being around peers has been helpful. Sleeping well with gabap entin, wonders about increasing dose slightly to help further with sedation. Physical Exam Psychiatric Orientation: alert and oriented x 3 Apperance: appropriately dressed and appropriately groomed Eye Contact: good eye contact Motor Behavior: no abnormal motor movements Speech: normal rate/rhythm/volume of speech Affect: + constricted affect (but with some smiles) Mood: + anxious mood Thought Process: goal directed thought process and linear/logical thought process Thought Content: reality based without delusions Suicidal Thoughts: denies suicidal thoughts, denies suicidal plan and denies suicidal intent Homicidal Thoughts: denies homicidal thoughts Hallucinations: no auditory hallucinations and no visual hallucinations Cognition: recent memory grossly intact, remote memory grossly intact, attention grossly intact and language grossly intact Estimated Intelligence: consistent with education level Insight: + fair insight Judgment: + fair judgement Vital Signs (Past 24 Hours) Last Vital Signs Temp 36.1 C L 12/07/22 06:34 Pulse 72 12/07/22 06:34 Resp 12 12/07/22 06:34 BP 120/69 12/07/22 06:34 Pulse Ox 99 12/07/22 06:34 O2 Del Method Room Air 12/07/22 06:34 Results & Data ([facility]) Laboratory Results Laboratory Results - last 24 hr 12/06/22 12/06/22 08:21 12:44 VBG pH < 7.00 L VBG pCO2 119 H VBG pO2 41 VBG HCO3 TNP VBG O2 Saturation < 60.0 VBG Base Excess TNP Estimat Average Glucose 103 Hemoglobin A1c 5.2 Hgb A1c Pathologist Com Current Inpatient Medications Current Inpatient Medications: Current Inpatient Medications Acetaminophen (Acetaminophen 325 Mg Tab) 650 mg PO Q4H PRN PRN Reason: Headache or Minor Fever Stop: 01/03/23 21:15 Last Admin: 12/06/22 15:15 Dose: 650 mg Al Hydrox/Mg Hydrox/Simethicone (Aluminum/Magnesium Susp 30 Ml Udc) 30 ml PO Q4H PRN PRN Reason: GI Upset Stop: 01/03/23 21:15 Bictegravir/Emtricitabine/Tenofovir (Biktarvy) 1 each PO QAM CAMMIE Stop: 01/05/23 08:59 Last Admin: 12/07/22 08:43 Dose: 1 each Bismuth Subsalicylate (Bismuth Subsalicylate Liqd 236 Ml) 15 ml PO PRN PRN PRN Reason: Loose Stool Stop: 01/03/23 21:15 Clonazepam (Clonazepam 0.25 Mg Tab) 0.25 mg PO BID PRN PRN Reason: anxiety Stop: 01/05/23 14:58 Last Admin: 12/06/22 17:45 Dose: 0.25 mg Gabapentin (Gabapentin 300 Mg Cap) 300 mg PO HS CAMMIE Stop: 01/04/23 21:59 Last Admin: 12/06/22 21:57 Dose: 300 mg Gabapentin (Gabapentin 100 Mg Cap) 100 mg PO TID PRN PRN Reason: Anxiety Stop: 01/05/23 20:59 Last Admin: 12/06/22 15:24 Dose: 100 mg Ibuprofen (Ibuprofen 600 Mg Tab) 600 mg PO TID PRN PRN Reason: tooth pain Stop: 01/04/23 13:59 Lamotrigine (Lamotrigine 25 Mg Tab) 25 mg PO HS CAMMIE Stop: 01/03/23 20:59 Last Admin: 12/06/22 21:57 Dose: 25 mg Magnesium Hydroxide (Magnesium Hydroxide Susp 30 Ml Udc) 30 ml PO DAILY PRN PRN Reason: Constipation Stop: 01/03/23 21:15 Oxycodone HCl (Oxycodone Hcl Ir 5 Mg Tab (Immediate Release)) 5 mg PO Q6H PRN PRN Reason: Pain from procedure Stop: 12/20/22 16:11 Sodium Chloride (Sodium Chloride 0.65% Na Soln 45 Ml ([place])) 1 - 2 sprays NA PRN PRN PRN Reason: Nasal Dryness/Congestion Stop: 01/03/23 21:15 Mental Health & Subst Abuse Tx Psychiatrist Name of Psychiatrist: Samson Norton Psychiatrist's Date Of Appointment With Psychiatric Provider: 12/22/22 Time of Appointment with Psychiatrist: 10:20 AM Psychiatric Appointment Comment: [address], [place] [address] Therapist Name of Therapist: Pasquale Green Therapist's Date of Therapist Appointment: 12/14/22 Time of Therapist Appointment: 10:00 AM Therapy Appointment Comment: [address], [address], [place] [address] Hospital Cna Name of [facility] C[facility]: [facility] Phone Number for Hospital Cna: [phone] Case Management Appointment Comment: Please resume your normal schedule. Post Discharge Appointments Primary Care Physician Name Of Family Doctor/PCP: Apolinar Vazquez Primary [facility] Date of Future Appointment with PCP: 12/12/22 Time of Appointment with PCP: arrive at 1:25 PM Provider Appointment Comment: [place] [id number] Senior Data Integration Developer Name of Senior Data Integration Developer: Pasquale Certified Copper Tapper - Rafat beatty Phone Number of Senior Data Integration Developer: [phone] Date of Appointment with Senior Data Integration Developer: 12/13/22 Time of Appointment with Senior Data Integration Developer: 12 PM Senior Data Integration Developer Appointment Comment: [address], [place] [address] (1) Schizoaffective disorder Schizoaffective disorder type: depressive Qualified Code(s): F25.1 - Schizoaffective disorder, depressive type (4) HIV (human immunodeficiency virus infection) HIV symptom status: asymptomatic, with no history of HIV-related illness Qualified Code(s): Z21 - Asymptomatic human immunodeficiency virus [HIV] infection status
[2022-12-07 12:52] LABS: Marijuana Quant, GCMS Urine 278 ng/mL (<5)
--- NOTE | 2022-12-07 13:28 | Urology Progress Note ---
Date of Service December 07, 2022 Assessment & Plan (1) Ischemic priapism: Plan 37-year-old male admitted for psychiatric issues who developed an ischemic priapism yesterday 12/06/22. Dr. Rosado performed a bedside aspiration. The penis detumesced and the patient reported pain improved. Remains stable from standpoint. No further priapism issues. Pain has resolved. He can follow-up with urology service as needed. Please call with any further questions/concerns. Admission and Anticipated Discharge Date Admission Date: December 04, 2022 Subjective Pt examined at bedside this afternoon. Stable from urological standpoint. No further priapism issues. Pain has resolved. Review of Systems 2 Constitutional: as per Subjective / HPI Genitourinary: + as per Subjective / HPI Physical Exam Physical Exam: General: Alert and oriented, no acute distress Pulmonary: Nonlabored respirations Extremities: Moves all 4 spontaneously Results & Data Vital Signs (Past 12 Hours) Vital Signs Temp Pulse Resp BP BP Pulse Ox O2 Del Method 12/07/22 06:34 36.1 C L 72 12 120/69 128/64 99 Room Air PG Care Time/CCT Total # of Minutes Spent Total Time Spent with Patient: Total time spent is greater than 50% in coordination of care (as documented) at patient's floor/unit and/or counseling patient: Coding Level of Care Code 42862 SUB INP/OBS CARE 03/01MIN Diagnoses Ischemic priapism N48.39
[2022-12-07] MEDS: GABAPENTIN 100 MG CAP PO PRN (14:14)
[2022-12-07] MEDS: lamoTRIgine 25 MG TAB PO SCH (22:00)
[2022-12-07] MEDS ORDERED: GABAPENTIN 300 MG CAP PO SCH (22:00)
[2022-12-07] MEDS: GABAPENTIN 300 MG CAP PO SCH (22:01)
[2022-12-07] MEDS: GABAPENTIN 100 MG CAP PO SCH (22:02)
[2022-12-08] MEDS: BIKTARVY PO SCH (09:10)
--- NOTE | 2022-12-08 09:17 | Psychiatric Progress Note ---
Date of Service December 08, 2022 Impression / Recommendations Impression Brett Mc is a 37 year old man with a history of schizoaffective disorder, PTSD, and polysubstance use disorder in early remission who was admitted for worsening depression, SI with plan and aggressive thoughts toward a man he invited to temporarily stay in his home. Diagnostically consistent with schizoaffective disorder current episode of major depression as well as impact from PTSD. MNPR given recent priapism 12/08/2022: Repeat priapism again this morning though encouragingly responded quickly to [place] oxygen 6L after 10minutes. Given repeat priapism will discontinue lamictal (given one case report of potential to contribute to priapism and this is a more recent medication addition in outpt setting) as all other psychotropic medications have been stopped with exception of abilify WILKERSON which will remain in his system for the next ~3 weeks. Increase in recent priapism events seems to suggest Abilify WILKERSON is the likely culprit (especially since antipsychotics are considered one of the biggest offending agents) versus additive component given his sickle cell trait and history of pripaism even prior to psychotropic medication use. Tolerated higher dose of gabapentin with benefit for improved s leep, one case study of gabapentin linked to priapism but all others suggest it can be beneficial in reducing likelihood of priapism even potentially in cases of priapism associated with sickle cell trait/disease. Greatly appreciate help and recommendations from the urology service. Overall, I spent a total of 50 minutes with this case including review of chart records, direct evaluation of the patient at bedside, counseling the patient, discussion during interdisciplinary treatment rounds, risk assessment, coordination with urology providers and documentation in the electronic health record. (1) Schizoaffective disorder: (2) Depression with suicidal ideation: (3) Post traumatic stress disorder (PTSD): (4) HIV (human immunodeficiency virus infection): (5) Methamphetamine use disorder, moderate, in early remission: Plan 12/08/2022: * Discontinue lamictal * Continue gabapentin 500mg HS and 100mg TID prn for anxiety * Remains on Abilify WILKERSON 400mg via outpatient schedule (last injection ~ 1 week ago) 12/07/2022: * Continue lamictal 25mg HS * Increase gabapentin to 500mg HS and continue 100mg TID prn for anxiety * Remains on Abilify WILKERSON 400mg via outpatient schedule (last injection ~ 1 week ago) 12/06/2022: * Discontinue sertraline, mirtazapine and prazosin * Increase gabapentin to 300mg HS as well as 100mg TID prn for anxiety * Continue lamictal 25mg HS (a few cases studies of possible priapism but felt to be much lower risk than alternative psychotropic options for mood stabilization at this point) 12/05/2022: The patient was admitted to the [facility] ([facility]) on q15 min checks (behavioral with suicide precautions) for safety. The patient will participate in group, recreational, and milieu therapies and will be offered additional individual and family sessions as clinically appropriate. -lamictal 25mg HS -increase sertraline to 100mg daily -mirtazapine 15mg HS -start prazosin 1mg HS po -Discontinue Requip and will instead start gabapentin 300mg HS for restless leg syndrome -Fasting lipid panel and glucose and HbA1c tomorrow morning Inventory Assets Strengths: supportive relationships, willing to get treatment Needs: safety and stabilization, medication adjustment, additional coping skills, increased outpatient services Suicide Risk Level Suicide Risk Level: Moderate (q15 min suicide checks) (severe depression with SI with plan prior to admission but mood improving, now denies SI, feels safe in the hospital, able to safety contract and agrees to let nursing/staff know should they develop plan, intent or feel unable to remain safe.) Suicide Risk Level Comments: Risk Factors Assessment Male: Yes : No Do You Have Access To A Gun?: No Health Problems: Yes Mental Health Diagnoses: Yes Substance Use Disorders: Yes Previous Attempt: Yes Family History of Suicide: Yes Previous Psychiatric Hospitalization: Yes Protective Factors Assessment Employed: Yes (Works at a [employer]) Stable Relationships: Yes Good Rapport with Provider: Yes Interval History Identifying Information BRETT MC is a 37-year-old man who currently lives in [place], has a history of schizoaffective disorder, and was admitted on 12/04/22 19:21 on a 201 voluntary commitment for worsening depression with SI with plan as well as increased auditory hallucinations and thoughts of wanting to head butt his friend. Chief Complaint "I'm tearful because it's life changing". Review of Systems Sleep Information Total Hours of Sleep: 7 Meal Information Percent Meal Consumed - Breakfast: 100 Percent Meal Consumed - Lunch: 100 Percent Meal Consumed - Dinner: 100 Nutrition Comment: NPO at lunch Subjective Subjective Patient was seen & assessed and interval progress reviewed with treatment team nursing and social work. Attending groups. Awoke this morning with another priapism that has become increasingly painful. Urology updated. He wants to try to attend groups today. Reports he slept really well with slightly higher dose of gabapentin and that this does seem to be helping with anxiety. Urology recommended oxygen trial which caused resolution of his priapism after about 10 minutes which left him tearful due to gratitude for the effectiveness of this. Mood improved after that intervention. Physical Exam Psychiatric Orientation: alert and oriented x 3 Apperance: appropriately dressed and appropriately groomed Eye Contact: good eye contact Motor Behavior: no abnormal motor movements Speech: normal rate/rhythm/volume of speech Affect: + tearful affect Mood: + anxious mood (especially with morning priapism, improving by afternoon) Thought Process: goal directed thought process and linear/logical thought process Thought Content: reality based without delusions Suicidal Thoughts: denies suicidal thoughts, denies suicidal plan and denies suicidal intent Homicidal Thoughts: denies homicidal thoughts Hallucinations: no auditory hallucinations and no visual hallucinations Cognition: recent memory grossly intact, remote memory grossly intact, attention grossly intact and language grossly intact Estimated Intelligence: consistent with education level Insight: + fair insight Judgment: + fair judgement Vital Signs (Past 24 Hours) Last Vital Signs Temp 36.6 C 12/08/22 06:00 Pulse 70 12/08/22 06:00 Resp 18 12/08/22 06:00 BP 139/81 12/08/22 06:36 Pulse Ox 97 12/08/22 06:00 O2 Del Method Room Air 12/08/22 06:00 Results & Data ([facility]) Laboratory Results Laboratory Results - last 24 hr 12/04/22 17:20 U Marijuana THC Carboxy 278 H Drug Screen Comment SEE NOTE Current Inpatient Medications Current Inpatient Medications: Current Inpatient Medications Acetaminophen (Acetaminophen 325 Mg Tab) 650 mg PO Q4H PRN PRN Reason: Headache or Minor Fever Stop: 01/03/23 21:15 Last Admin: 12/06/22 15:15 Dose: 650 mg Al Hydrox/Mg Hydrox/Simethicone (Aluminum/Magnesium Susp 30 Ml Udc) 30 ml PO Q4H PRN PRN Reason: GI Upset Stop: 01/03/23 21:15 Bictegravir/Emtricitabine/Tenofovir (Biktarvy) 1 each PO QAM CAMMIE Stop: 01/05/23 08:59 Last Admin: 12/08/22 09:10 Dose: 1 each Bismuth Subsalicylate (Bismuth Subsalicylate Liqd 236 Ml) 15 ml PO PRN PRN PRN Reason: Loose Stool Stop: 01/03/23 21:15 Gabapentin (Gabapentin 100 Mg Cap) 100 mg PO TID PRN PRN Reason: Anxiety Stop: 01/05/23 20:59 Last Admin: 12/07/22 14:14 Dose: 100 mg Gabapentin (Gabapentin 300 Mg Cap) 300 mg PO HS CAMMIE Stop: 01/06/23 21:59 Last Admin: 12/07/22 22:01 Dose: 300 mg Gabapentin (Gabapentin 100 Mg Cap) 200 mg PO HS CAMMIE Stop: 01/06/23 21:59 Last Admin: 12/07/22 22:02 Dose: 200 mg Ibuprofen (Ibuprofen 600 Mg Tab) 600 mg PO TID PRN PRN Reason: tooth pain Stop: 01/04/23 13:59 Lamotrigine (Lamotrigine 25 Mg Tab) 25 mg PO HS CAMMIE Stop: 01/03/23 20:59 Last Admin: 12/07/22 22:00 Dose: 25 mg Magnesium Hydroxide (Magnesium Hydroxide Susp 30 Ml Udc) 30 ml PO DAILY PRN PRN Reason: Constipation Stop: 01/03/23 21:15 Sodium Chloride (Sodium Chloride 0.65% Na Soln 45 Ml ([place])) 1 - 2 sprays NA PRN PRN PRN Reason: Nasal Dryness/Congestion Stop: 01/03/23 21:15 Mental Health & Subst Abuse Tx Psychiatrist Name of Psychiatrist: Samson Norton Psychiatrist's Date Of Appointment With Psychiatric Provider: 12/22/22 Time of Appointment with Psychiatrist: 10:20 AM Psychiatric Appointment Comment: [address], [place] [address] Therapist Name of Therapist: Pasquale Green Therapist's Date of Therapist Appointment: 12/14/22 Time of Therapist Appointment: 10:00 AM Therapy Appointment Comment: [address], [address], [place] [address] Auto Club Travel Counselor Name of Auto Club Travel Counselor: Antonella Maxwell [employer] Travel Counselor Phone Number for Auto Club Travel Counselor: [phone] Case Management Appointment Comment: Please resume your normal schedule. Post Discharge Appointments Primary Care Physician Name Of Family Doctor/PCP: Apolinar Vazquez Primary Care Date of Future Appointment with PCP: 12/12/22 Time of Appointment with PCP: arrive at 1:25 PM Provider Appointment Comment: [place] [address] Lubrication Worker Name of Lubrication Worker: Harlan Certified Automated Teller Manager Valentnia Han Phone Number of Lubrication Worker: [phone] Date of Appointment with Lubrication Worker: 12/13/22 Time of Appointment with Lubrication Worker: 12 PM Lubrication Worker Appointment Comment: [address], [address], [place] [address] (1) Schizoaffective disorder Schizoaffective disorder type: depressive Qualified Code(s): F25.1 - Schizoaffective disorder, depressive type (4) HIV (human immunodeficiency virus infection) HIV symptom status: asymptomatic, with no history of HIV-related illness Qualified Code(s): Z21 - Asymptomatic human immunodeficiency virus [HIV] infection status
[2022-12-08] MEDS ORDERED: oxyCODONE HCL IR 5 MG TAB (IMMEDIATE RELEASE) PO PRN (10:35)
[2022-12-08] MEDS ORDERED: oxyCODONE HCL IR 5 MG TAB (IMMEDIATE RELEASE) ONE (10:39)
[2022-12-08] MEDS ORDERED: LIDOCAINE 1% LOCAL 20 ML VIAL ONE (12:12)
--- NOTE | 2022-12-08 12:52 | Urology Progress Note ---
Date of Service December 08, 2022 Assessment & Plan (1) Ischemic priapism: Plan 37-year-old male admitted for psychiatric issues who developed an ischemic priapism 12/06/22. Dr. Rosado performed a bedside aspiration and the penis detumesced and the patient reported pain improved. Urology notified again this morning 12/08 of repeat priapism. Reviewed with Dr. Lopez. This morning, being the priapism was less than 4 hours we treated conservatively with high flow oxygen via nasal cannula and pain control. Within 10 minutes, were able to get spontaneous remission and detumescence. Pain resolved and no return of symptoms or issues. Recommend continued monitoring for return of priapism. It is not uncommon to have recurrence with medication induced priapisms. Complex clinical picture. Most likely scenario is a combination of being higher risk due to sickle cell trait with recent medication adjustments. Numerous medications have been associated with priapism including alpha blockers, various psych meds, and antiretrovirals. With this in mind, we will need to try to reintroduce necessary medications such as the psych meds slowly with plans to try to see which ones are tolerable. We will also need to consider formal evaluation with hematology in order to assess sickle cell trait and other blood dyscrasias. He can follow-up with urology service as needed. Please call with any further questions/concerns. Admission and Anticipated Discharge Date Admission Date: December 04, 2022 Subjective Patient seen at bedside this AM. Had repeat priapism this morning which was treated conservatively with oxygen and pain medication. Was able to get spontaneous remission and detumescence. Pain resolved. Review of Systems Constitutional: as per Subjective / HPI Genitourinary: + as per Subjective / HPI Physical Exam Physical Exam: General: Alert and oriented, no acute distress Pulmonary: Nonlabored respirations Extremities: Moves all 4 spontaneously Results & Data Vital Signs (Past 12 Hours) Vital Signs Temp Pulse Resp BP Pulse Ox O2 Del Method 12/08/22 06:36 139/81 12/08/22 06:00 36.6 C 70 18 115/72 97 Room Air PG Care Time/CCT Total # of Minutes Spent Total Time Spent with Patient: Total time spent is greater than 50% in coordination of care (as documented) at patient's floor/unit and/or counseling patient: Coding Level of Care Code 11531 SUB INP/OBS CARE 2/35MIN Diagnoses Ischemic priapism N48.39
[2022-12-08] MEDS: GABAPENTIN 300 MG CAP PO SCH (21:08)
[2022-12-08] MEDS: GABAPENTIN 100 MG CAP PO SCH (21:08)
[2022-12-09] MEDS: BIKTARVY PO SCH (09:17)
--- NOTE | 2022-12-09 10:22 | Discharge Summary ---
Date of Service December 09, 2022 History of Present Illness As per Dr. Caballero on admission: Denis presents for psychiatric admission for worsening depression and SI with plan to overdose on his medications as well as increased auditory hallucinations in the context of multiple psychosocial stressors including starting a new job, upcoming court hearing for mental health court/previous drug possession charges and thoughts of harm toward his friend who he allowed to move into his trailer but now this individual has outstayed his welcome and will not leave. In the ED he reported thoughts of wanting to "headbutt" this acquittance and police were informed by case management as duty to warn and to inform this man to move out. He states the voices tend to be pretty neutral and he feels like it is "the holy spirit". He endorses depressive symptoms for the last few months including tearfulness, anhedonia, decreased motivation, self-guilt, helplessness, hopelessness, decreased energy, no change in appetite, and decreased sleep. SI has been occurring for the last few weeks and they started to intensify to the "point where I don't even see why I wake up". Endorses PTSD symptoms including avoidance, crying "for no reason", flashbacks/intrusive memories, and night terrors (every other night). He is currently prescribed psychiatric medications: Abilify maintenna 400mg WILKERSON (last injection was last week), lamictal 25mg HS (started this last week), mirtazapine 15mg HS (helps with sleep, but doesn't help with staying asleep), and sertraline 50mg daily (few months, stopped it for priapism but no difference so restarted recently). Additional history as documented by ED CM on 12/04/2022: "Met with patient bedside along with patients Antonella ALCAZAR from [facility] to complete mental health evaluation. Patient presents calm, sad and cooperative in answering all questions asked of him. Today, patient woke up and was having intense suicidal ideations with a plan to overdose on his medications. Patient reports previous suicide attempt of overdosing at age 18 and then overdosing on meth, 7 years ago. Patient was admitted for psychiatric treatment to [facility] in 2021 and multiple admissions as an adolescent while residing in [place]. Patient reports he is experiencing what he identifies at homicidal ideations towards a friend who he allowed to stay in his home for a few days, but now he will not leave. Patient reports he has thoughts to head butt him in the mouth, likening these thoughts more so as thoughts of aggression. Patient denies aggressive or assaultive behaviors. Patient is on probation with [facility] and Krystle Lan is his mobile patrol officer. Patient was incarcerated for burglary and possession of drugs for six months and was released on August 11, 2022. Patient reports he is able to see peoples auras and energy and oftentimes hears voices, not elaborating what they are saying, but oftentimes responds to the voices. Patient identifies stressors as recent relocation, financial, job, interpersonal difficulty and ongoing mental health issues. Patient reports depressive symptoms as feelings of helpless/hopelessness, loss of daily functioning, lack of motivation, isolative, anhedonia, decrease in ADLs and appetite and broken sleep, reporting nightmares, restlessness and broken sleep and does not feel rested upon wakening. Patient describes severe anxiety on most days with chest discomfort, shortness of breath, sweating, tremb ling and sleep disturbances. Patient reports current and history of punching himself in the face in an effort to control his feelings, this started when he was an adolescent. Patient has a history of alcohol and drug abuse, reporting use of crystal meth and methamphetamines. Patient does not use tobacco. Patient recently relocated into a new trailer and offered a friend a place to stay for a few days and he will not leave to which is causing he great distress and anger. 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 Patient likes to sing and dance, but has lost all interest in activities and hobbies. Per medical record, patient is diagnosed with HIV and is prescribed Biktarvy, reporting he is compliant. Patient sees Kassie at [facility] for medication management and was recently prescribed Lamictal to which he does not believe is working, but continues to take. Patient sees Rosetta at [facility] for dual diagnosis, attending therapy and group meetings." Psychiatric ROS notable for history of get but struggles to describe these symptoms or when it last occurred. Also history of psychosis. Physical Exam Psychiatric See admission H&P and DOD assessment. Vital Signs (Past 24 Hours) Last Vital Signs Temp 36.6 C 12/09/22 06:40 Pulse 95 H 12/09/22 06:40 Resp 16 12/09/22 06:40 BP 132/84 12/09/22 06:40 Pulse Ox 97 12/08/22 06:00 O2 Del Method Room Air 12/08/22 06:00 Principal Diagnosis schizoaffective disorder Psychiatric Data See daily stay summary. In short, safety was maintained and the patient was cooperative with care. Medication changes included replacing Requip with gabapentin. A trial of prazosin was started then discontinued as were Zoloft and Remeron due to unclear efficacy and concerns about priapism risk. Patient has experienced on longstanding basis (see urology consult) and felt to be problematic for patient given sickle cell trait. Oxygen worked well and this explainationw as "life changing" for patient as frequently seeks care for issues. A safety plan was completed prior to discharge and he continues to request discharge today. Dr. Caballero contacted [facility] re: possible decrease in Abilify given risk of priapism with psych meds. Day of Discharge Assessment Today the patient voices readiness for discharge. They note improvement in mood and deny thoughts to harm self or others. Thoughts remain organized and they are improved from admission. There is no evidence of psychosis. They agree to take mediations as prescribed and keep follow-up appointments. They are stable for discharge to outpatient level of care. Transition of Care Transition Of Care Record: was reviewed with the patient Advance Directives Advance Directives Information Provided: Yes Advance Directives: No Mental Health Advance Directive: No Advance Directives on File: No Living Will: No Power of Mc Kay Stitcher: No Advance Directives Reason:: Declines as Mental Health Visit. Suicide Risk Level Suicide Risk Level Comments: Suicide risk at discharge is deemed low as the patient is no longer requiring 24-hr monitoring, has a safety plan, and is free of suicidal ideation at discharge. Risk Factors Assessment Male: Yes : No Do You Have Access To A Gun?: No Health Problems: Yes Mental Health Diagnoses: Yes Substance Use Disorders: Yes Previous Attempt: Yes Family History of Suicide: Yes Previous Psychiatric Hospitalization: Yes Protective Factors Assessment Employed: Yes (Works at a local [employer] food [employer]) Stable Relationships: Yes Good Rapport with Provider: Yes Tobacco Cessation at Discharge Tobacco Cessation Medication Prescribed at Discharge: Not Applicable/Non-Smoker Total Time Total Time Spent: Greater Than 30 Minutes (36 min) Total Time Includes: Examination of the patient, Discharge Planning and Medication Reconciliation Discharge Data Consultations 12/06/22 12:17 Consult Urology Routine as per 12/08/22 f/u with urology: 37-year-old male admitted for psychiatric issues who developed an ischemic priapism 12/06/22. Dr. Rosado performed a bedside aspiration and the penis detumesced and the patient reported pain improved. Urology notified again this morning 12/08 of repeat priapism. Reviewed with Dr. Lopez. This morning, being the priapism was less than 4 hours we treated conservatively with high flow oxygen via nasal cannula and pain control. Within 10 minutes, were able to get spontaneous remission and detumescence. f/u with urology as needed and recommended consultation with hemtaology on an outpatient basis at discretion of PCP for blood dyscrasia. Lab Results 12/04/22 12/04/22 12/04/22 15:55 17:20 Unknown WBC 5.25 RBC 5.66 Hgb 15.8 Hct 45.8 MCV 80.9 MCH 27.9 MCHC 34.5 RDW Std Deviation 44.2 RDW Coeff of Jay Jay 15.1 H Plt Count 213 MPV 9.6 Immature Gran % (Auto) 0.2 Neut % (Auto) 70.4 Lymph % (Auto) 20.4 Caroline % (Auto) 6.3 Eos % (Auto) 2.3 Baso % (Auto) 0.4 Neut # (Auto) 3.70 Lymph # (Auto) 1.07 L Caroline # (Auto) 0.33 Eos # (Auto) 0.12 Baso # (Auto) 0.02 Immature Gran # (Auto) 0.01 VBG pH VBG pCO2 VBG pO2 VBG HCO3 VBG O2 Saturation VBG Base Excess Sodium 140 Potassium 3.8 Chloride 109 H Carbon Dioxide 25 Anion Gap 6 BUN 15 Creatinine 1.04 Est Cr Clr Drug Dosing 98.4 Est GFR ( Amer) 107.3 Est GFR (Non-Af Amer) 92.6 BUN/Creatinine Ratio 14.4 Glucose 112 H Estimat Average Glucose Hemoglobin A1c Hgb A1c Pathologist Com Calcium 9.9 Total Bilirubin 1.7 H AST 25 ALT 38 Alkaline Phosphatase 62 Total Protein 7.9 Albumin 4.6 Globulin 3.3 Albumin/Globulin Ratio 1.4 Triglycerides Cholesterol LDL Cholesterol, Calc VLDL Cholesterol, Calc HDL Cholesterol Cholesterol/HDL Ratio TSH 0.648 Urine Color Yellow Urine Appearance Clear Urine pH 8.5 H Ur Specific Daisy 1.013 Urine Protein Negative Urine Glucose (UA) Negative Urine Ketones Negative Urine Blood Negative Urine Nitrite Negative Urine Bilirubin Negative Urine Urobilinogen Positive H Ur Leukocyte Esterase Negative Nasal Screen MRSA (PCR) Negative Salicylates < 3.0 L Urine Opiates Screen Neg Ur Methadone, Qual Neg Acetaminophen < 3 L Urine Barbiturates Neg Ur Phencyclidine (PCP) Neg U Amphetamin/Meth Scrn Neg MDMA (Ecstasy) Screen Neg U Benzodiazepines Scrn Neg Ur Cocaine Metabolite Neg U Marijuana (THC) Screen Pos H U Marijuana THC Carboxy 278 H Drug Screen Comment SEE NOTE Ethyl Alcohol mg/dL < 10.0 SARS-CoV-2, RNA, NAAT NEGATIVE 12/06/22 12/06/22 08:21 12:44 WBC RBC Hgb Hct MCV MCH MCHC RDW Std Deviation RDW Coeff of Jay Jay Plt Count MPV Immature Gran % (Auto) Neut % (Auto) Lymph % (Auto) Caroline % (Auto) Eos % (Auto) Baso % (Auto) Neut # (Auto) Lymph # (Auto) Caroline # (Auto) Eos # (Auto) Baso # (Auto) Immature Gran # (Auto) VBG pH < 7.00 L VBG pCO2 119 H VBG pO2 41 VBG HCO3 TNP VBG O2 Saturation < 60.0 VBG Base Excess TNP Sodium Potassium Chloride Carbon Dioxide Anion Gap BUN Creatinine Est Cr Clr Drug Dosing Est GFR ( Amer) Est GFR (Non-Af Amer) BUN/Creatinine Ratio Glucose Estimat Average Glucose 103 Hemoglobin A1c 5.2 Hgb A1c Pathologist Com Calcium Total Bilirubin AST ALT Alkaline Phosphatase Total Protein Albumin Globulin Albumin/Globulin Ratio Triglycerides 110 Cholesterol 148 LDL Cholesterol, Calc 96 VLDL Cholesterol, Calc 22 HDL Cholesterol 30 Cholesterol/HDL Ratio 4.9 TSH Urine Color Urine Appearance Urine pH Ur Specific Daisy Urine Protein Urine Glucose (UA) Urine Ketones Urine Blood Urine Nitrite Urine Bilirubin Urine Urobilinogen Ur Leukocyte Esterase Nasal Screen MRSA (PCR) Salicylates Urine Opiates Screen Ur Methadone, Qual Acetaminophen Urine Barbiturates Ur Phencyclidine (PCP) U Amphetamin/Meth Scrn MDMA (Ecstasy) Screen U Benzodiazepines Scrn Ur Cocaine Metabolite U Marijuana (THC) Screen U Marijuana THC Carboxy Drug Screen Comment Ethyl Alcohol mg/dL SARS-CoV-2, RNA, NAAT Hospital Course (1) Schizoaffective disorder: (2) Depression with suicidal ideation: (3) Post traumatic stress disorder (PTSD): (4) HIV (human immunodeficiency virus infection): (5) Methamphetamine use disorder, moderate, in early remission: Plan 12/08/2022: * Discontinue lamictal * Continue gabapentin 500mg HS and 100mg TID prn for anxiety * Remains on Abilify WILKERSON 400mg via outpatient schedule (last injection ~ 1 week ago) 12/07/2022: * Continue lamictal 25mg HS * Increase gabapentin to 500mg HS and continue 100mg TID prn for anxiety * Remains on Abilify WILKERSON 400mg via outpatient schedule (last injection ~ 1 week ago) 12/06/2022: * Discontinue sertraline, mirtazapine and prazosin * Increase gabapentin to 300mg HS as well as 100mg TID prn for anxiety * Continue lamictal 25mg HS (a few cases studies of possible priapism but felt to be much lower risk than alternative psychotropic options for mood stabilization at this point) 12/05/2022: The patient was admitted to the [facility] ([facility] inpatient mental health unit) on q15 min checks (behavioral with suicide precautions) for safety. The patient will participate in group, recreational, and milieu therapies and will be offered additional individual and family sessions as clinically appropriate. -lamictal 25mg HS -increase sertraline to 100mg daily -mirtazapine 15mg HS -start prazosin 1mg HS po -Discontinue Requip and will instead start gabapentin 300mg HS for restless leg syndrome -Fasting lipid panel and glucose and HbA1c tomorrow morning Mental Health & Subst Abuse Tx Psychiatrist Name of Psychiatrist: Samson Norton Psychiatrist's Date Of Appointment With Psychiatric Provider: 12/22/22 Time of Appointment with Psychiatrist: 10:20 AM Psychiatric Appointment Comment: [address], [place] [address] Therapist Name of Therapist: Pasquale Green Therapist's Date of Therapist Appointment: 12/14/22 Time of Therapist Appointment: 10:00 AM Therapy Appointment Comment: [address], [place] [address] Department Specialist Name of Department Specialist: Antonella Maxwell Department Specialist Phone Number for Department Specialist: [phone] Case Management Appointment Comment: Please resume your normal schedule. Post Discharge Appointments Primary Care Physician Name Of Family Doctor/PCP: Apolinar Vazquez Primary Care Date of Future Appointment with PCP: 12/12/22 Time of Appointment with PCP: arrive at 1:25 PM Provider Appointment Comment: [address] [place] [address] Fire Boss Name of Fire Boss: Pasquale Certified Fiberg[employer] Ski Maker Valentina Han Phone Number of Fire Boss: [phone] Date of Appointment with Fire Boss: 12/13/22 Time of Appointment with Fire Boss: 12 PM Fire Boss Appointment Comment: [address], [address], [place] [address] Smoking Cessation Counseling Tobacco Cessation Medication Prescribed at Discharge: Not Applicable/Non-Smoker Other #1: Name of Aftercare Appointment: Pasquale - Group Therapy Phone Number of Aftercare Appointment: [phone] Date of Aftercare Appointment: 12/13/22 Time of Aftercare Appointment: 1-3 PM Aftercare Appointment Comment: Wednesdays from 1-3 Discharge Plan Discharge Items Patient Disposition: Home - Self-Care Reason For Visit: SUICIDAL/HOMICIDAL IDEATION Discharge Diagnosis: schizoaffective disorder Activity: Resume your previous activity Non-emergency contact: Primary Care Provider, Psychiatrist and Therapist Call non-emergency contact if: you have any medication questions and your symptoms worsen Follow-up/Referrals: Kale Vazquez MD [Primary Care Provider] - Diet: Regular Addtl Attending Provider Instructions: SPECIAL CARE INSTRUCTIONS: 1. Follow through with your scheduled aftercare appointments. If unable to keep an appointment, please call to reschedule. 2. Take your medication only as prescribed. Medication should not be changed or stopped without the approval of your doctor. In the event of worsening symptoms or concerns about side effects, contact your doctor immediately. 3. Utilize new healthy coping skills, anger management skills, and stress management skills learned during your hospitalization. Journal feelings and process them with a support person. Identify stressors or situations that may result in relapse, deterioration or inappropriate behaviors and develop a plan to deal with those issues. 4. If your coping skills are ineffective and you are in crisis, contact your outpatient providers for direction. If unable to reach your providers, please call the [facility] CRISIS LINE AT , go to the [facility] walk-in center at [address], [address], [place], or go to the closest Emergency Room. 5. Avoid alcohol and un-prescribed drugs. 6. You have been provided with the Mental Health Advance Directives Pamphlet for your review. 7. Your condition is stable for discharge to outpatient level of care, but recovery is an ongoing process. Ifthoughts to harm yourself or others return, follow the safety plan developed during your stay. Planning for a safe return home includes securing weapons. Our treatment team recommends weaponsbe removed from the home until your outpatient provider reassesses your progress. In rare cases where the items themselvescannot be removed, guns and ammunitionshould be secured separatelyand keys stored by a reliable personoutside of the home. If you were admitted on an involuntary commitment, the police or other legal authorities may be involved in this process. AFTERCARE APPOINTMENTS: * Please call your insurance company prior to your scheduled appointment to confirm your aftercare providers are covered. Take your insurance information to your appointments. WHO TO CALL AND WHEN: Medical Emergencies: For questions or emergencies related to your hospital stay, please contact the Inpatient Behavioral Health Unit at [phone]. A manager pool is on-call 28/08 for the Behavioral Health Unit for emergencies At any time you feel your situation is an emergency, you may also call 911 immediately. Pending Studies at Discharge: No Stand-Alone Forms: My [facility] Traditional Medicinals, Smoking Cessation Medications and DC Order Prescriptions: New gabapentin 100 mg capsule 200 mg PO HS Qty: 90 0RF Rx Instructions: may take addition 100 mg twice a day as needed for anxiety/pain gabapentin 300 mg Capsule 300 mg PO HS Qty: 30 0RF Rx Instructions: take at hs with 200 uf=385 mg Continued Biktarvy 50-200-25 mg Tablet 1 tab PO QAM Held Abilify Maintena 400 mg suspension,extended rel syring 400 mg IM MONTHLY Hold Instructions: Resume on 12/22/22. up to [facility] re: dose Discontinued lamotrigine [Lamictal] 25 mg tablet 25 mg PO HS Discharge Orders: Discharge Order (Routine); Ordered 12/09/22 Ordered By: Eladia Murray Admission Data Admit Date/Time: 12/04/22 19:21 Attending Provider: Eladia Murray Admit Provider: Dora Caballero Primary Care Provider: Kale Vazquez Other Providers: Cayden Rosado Other Interventions: Discharge Summary Assessment (RN) Last Done: 12/09/22 10:54 PSY Interdisciplinary Discharge Planning Last Done: 12/09/22 10:54 Coding Level of Care Code 26354 D/C day mgmt > 30 min Diagnoses Schizoaffective disorder, depressive type F25.1 Schizoaffective disorder type: depressive Depression with suicidal ideation F32.A; R45.851 Post traumatic stress disorder (PTSD) F43.10 Asymptomatic HIV infection, with no history of HIV-related illness Z21 HIV symptom status: asymptomatic, with no history of HIV-related illness Methamphetamine use disorder, moderate, in early remission F15.21
== END 2022-12-09 13:20 | disposition home or self-care (01) | DRG 885 ==
LOC: ED 15:31 → SUATTDRO 19:21 → 3S 19:39

== ENCOUNTER 2023-10-04 13:10 | Observation (INO) ==
[2023-10-04 13:39] LABS: Basophils # (auto) 0.03 K/uL (0.00-0.20); Basophils % (auto) 0.6 %; Eosinophils # (auto) 0.16 K/uL (0.00-0.50); Hematocrit (blood only) 43.2 % (42.0-52.0); Hemoglobin 15.6 g/dl (14.0-18.0); Immature Granulocytes # (auto) 0.01 K/uL (0.01-0.20); Immature Granulocytes % (auto) 0.2 %; Lymphocytes # (auto) 1.18 K/uL (1.20-3.40); Lymphocytes % (auto) 22.2 %; Mean Corpuscular Hemoglobin 28.5 pg (25.0-34.0); Mean Corpuscular Hgb Conc 36.1 g/dL (32.0-36.0); Mean Corpuscular Volume 78.8 fL (80.0-100.0); Mean Platelet Volume 9.6 fL (9.4-12.4); Monocytes # (auto) 0.44 K/uL (0.11-0.59); Monocytes % (auto) 8.3 %; Neutrophils # (auto) 3.49 K/uL (1.40-6.50); Neutrophils % (auto) 65.7 %; Platelet Count 190 K/uL (130-400); RDW Coefficient of Variation 12.8 % (11.5-14.5); RDW Standard Deviation 36.7 fL (36.4-46.3); Red Blood Count 5.48 M/uL (4.70-6.10); White Blood Count 5.31 K/ul (4.8-10.8)
--- NOTE | 2023-10-04 13:39 | Emergency Department Note ---
Impression & Plan Pulmonary embolism, Acute right-sided thoracic back pain, Embolism, pulmonary with infarction ED Provider Note HISTORY OF PRESENT ILLNESS: Patient is a 38-year-old male presenting with right sided chest pain. Patient reports he was at a therapy office complaining of chest pain today and his therapist recommended he come in to be evaluated. Patient complains of right sided diffuse abdominal pain for the last 3 to 4 days. He reports that it hurts when he takes a deep breath. States that it feels like a sharp sensation in his chest. Denies any DVT or PE history. Denies any fevers or cough. He was given 324 mg of aspirin and 1 nitro with EMS, with minimal relief in his symptoms. He is complaining of 8 out of 10 chest pain on my assessment. He denies any history of cardiac stents. Denies any nausea, vomiting or abdominal pain. Denies any injury to the chest. He reports his pain is worse with taking a deep breath or any sort of movement. ROS: as above PHYSICAL EXAM: Constitutional: Patient appears in no acute distress. HENT: Head: Normocephalic and atraumatic. Eyes: EOMI, PERRL Mouth/Throat: Mucous membranes moist. Neck: Trachea midline. Neck supple. Cardiovascular: RRR, No murmurs, rubs or gallops. Intact distal pulses. Pulmonary/Chest: No respiratory distress. Breath sounds clear and equal bilaterally. No wheezes or rales. Abdominal: Abdomen soft, no tenderness, rebound or guarding. Musculoskeletal: No edema, tenderness or deformity noted. Skin: Warm and dry. No rash, erythema, pallor or cyanosis Psychiatric: Appropriate mood and affect for situation. Neurological: Alert and keenly responsive. CN II-XII grossly intact, moving all extremities equally and fully. MDM: - Vitals signs stable. - History obtained via patient. History as above. - Chronic conditions affecting care: depression; sickle cell trait - Differential diagnoses include, but are not limited to: Acute coronary syndrome; pulmonary embolism; dissection; tension pneumothorax; esophageal rupture; pneumonia - Order placed for continuous cardiac monitoring. At this time, monitor showed rate of 74 bpm with normal sinus rhythm, per my interpretation. - External medical records reviewed. Discharge summary dated was reviewed. Patient was admitted at that time for maxillary abscess and preseptal cellulitis. - EKG interpreted by myself showed normal sinus rhythm. Rate 90 bpm. QT 362. No acute ischemic changes. - Laboratory workup interpreted by myself showed normal WBC; stable electrolytes; normal PT/INR; elevated dimer (2980); normal troponin; normal lipase - CXR negative for pneumonia, per my interpretation. Radiology notes small pleural effusions. - Viral respiratory panel negative - Patient given 1g IV tylenol in ER for pain. On reassessment, still complaining of significant pain. 50 mcg of IV fentanyl ordered. - CT PE showed acute right upper lobe pulmonary embolism with peripheral consolidation within the right upper lobe favoring a pulmonary infarct. Noted to have trace pericardial effusion and small right and trace left pleural effusions. - Patient has never had any significant bleeding disorder complication. He reports he has sickle cell trait. - Heparin bolus and drip initiated. - Discussion was had with insurance case manager about patient's case and need for admission - Hospitalist consulted for admission - [facility]. I have personally spent 63 minutes of critical care time in the direct management of this patient. This includes bedside care, interpretation of diagnostic studies, and testing, discussion with consultants, patient, and family members, and other required patient management activities. This 63 minutes is in excess of all separately billable procedures. ASSESSMENT AND PLAN: Diagnosis: Right-sided chest pain; pulmonary embolism; pulmonary infarct Plan: Admit Past Med/Surg History Problem List (Updated 10/04/23 @ 15:23 by Marcia Alegre MD) Embolism, pulmonary with infarction (Acute) Acute right-sided thoracic back pain (Acute) Pulmonary embolism (Acute) Post traumatic stress disorder (PTSD) No significant past medical history (Chronic) Leukopenia (Acute) HIV (human immunodeficiency virus infection) (Acute) Schizoaffective disorder Acute abscess of maxillary sinus Medical History Methamphetamine use disorder, moderate, in early remission Depression with suicidal ideation Priapism Encounter for pre-operative examination Abscess of face Facial cellulitis Preseptal cellulitis Active intravenous drug use Surgical History History of incision and drainage (05/11/22) Right Intraoral Facial Abscess Incision and Drainage, Extraction of 5-6 Teeth(Right) - Uriel Valencia DMD No history of previous surgery Social History Smoking Status: Never smoker Do You Dip or Chew Tobacco: No; Hx Alcohol Use: No Hx Substance Use: Yes Last Used Substance: Unknown Preferred Language: Sudanese Communication Ability: Effective Title I Coordinator Required: No Beliefs That Will Affect Care: None Current Living Situation: Other Current Living Situation Comment: [facility] Feels Safe at Home: Yes Gender Identity: Male Assistive Devices: None Allergies Allergies Allergy/AdvReac Type Severity Reaction Status Date / Time brexpiprazole Allergy Unknown ON MED LIST Unverified 01/07/23 13:03 quetiapine [From Seroquel] Allergy Unknown ON MED LIST Verified 01/07/23 13:03 trazodone Allergy Unknown ON MED LIST Verified 01/07/23 13:03 Home Meds Home Medications Medication Instructions Recorded Confirmed gabapentin 100 mg capsule 200 mg PO BID 01/04/23 01/07/23 gabapentin 300 mg capsule See Rx Instructions .Route .COMPLEX 01/04/23 01/07/23 acetaminophen 325 mg tablet 650 mg PO Q4H PRN Pain 01/07/23 01/07/23 cabotegravir ER 400 mg/2 See Rx Instructions .Route .COMPLEX 01/07/23 01/07/23 mL-rilpivirine ER 600 mg/2mL IM suspension,ER (Cabenuva) calcium carbonate 1,000 mg PO TID PRN gastric 01/07/23 01/07/23 distress diphenhydramine HCl 50 mg capsule 50 mg PO HS Insomnia 01/07/23 01/07/23 olanzapine 10 mg tablet 10 mg PO BID 01/07/23 01/07/23 prazosin 1 mg capsule 1 mg PO HS 01/07/23 01/07/23 sennosides 8.6 mg tablet (senna) 8.6 mg PO DAILY PRN Constipation 01/07/23 01/07/23 sertraline 50 mg tablet 50 mg PO DAILY 01/07/23 01/07/23 Results & Data (ED) Vital Signs Vital Signs - 24 hr 10/04/23 13:16 10/04/23 13:31 10/04/23 13:54 Temperature 37 C Temperature Source Oral Pulse Rate 90 79 Pulse Rate from SpO2 Sensor 79 Respiratory Rate 20 13 Blood Pressure 118/91 Blood Pressure Mean 100 Pulse Oximetry 93 93 93 Oxygen Delivery Method Room Air Room Air Sepsis Recent Fever Within 48 Hours No Sepsis New/Unexplained Change in Mental Status No Sepsis Action Taken by Nursing No Action Required 10/04/23 14:00 10/04/23 14:08 10/04/23 14:42 Temperature Temperature Source Pulse Rate 78 79 73 Pulse Rate from SpO2 Sensor 77 74 Respiratory Rate 14 15 Blood Pressure Blood Pressure Mean Pulse Oximetry 94 93 Oxygen Delivery Method Sepsis Recent Fever Within 48 Hours Sepsis New/Unexplained Change in Mental Status Sepsis Action Taken by Nursing Laboratory Data 10/04/23 13:14 10/04/23 13:14 Lab Results 10/04/23 10/04/23 Range/Units 13:14 13:50 WBC 5.31 (4.8-10.8) K/ul RBC 5.48 (4.70-6.10) M/uL Hgb 15.6 (14.0-18.0) g/dl Hct 43.2 (42.0-52.0) % MCV 78.8 L (80.0-100.0) fL MCH 28.5 (25.0-34.0) pg MCHC 36.1 H (32.0-36.0) g/dL RDW Std Deviation 36.7 (36.4-46.3) fL RDW Coeff of Jay Jay 12.8 (11.5-14.5) % Plt Count 190 (130-400) K/uL MPV 9.6 (9.4-12.4) fL Immature Gran % (Auto) 0.2 % Neut % (Auto) 65.7 % Lymph % (Auto) 22.2 % Wilkes % (Auto) 8.3 % Eos % (Auto) 3.0 % Baso % (Auto) 0.6 % Neut # (Auto) 3.49 (1.40-6.50) K/uL Lymph # (Auto) 1.18 L (1.20-3.40) K/uL Wilkes # (Auto) 0.44 (0.11-0.59) K/uL Eos # (Auto) 0.16 (0.00-0.50) K/uL Baso # (Auto) 0.03 (0.00-0.20) K/uL Immature Gran # (Auto) 0.01 (0.01-0.20) K/uL PT 11.3 (9.0-12.0) Seconds INR 1.0 (0.9-1.1) D-Dimer 2980 H* (0-500) ug/L FEU Sodium 137 (136-145) mmol/L Potassium 3.7 (3.5-5.1) mmol/L Chloride 102 (98-107) mmol/L Carbon Dioxide 25 (21-32) mmol/L Anion Gap 10 (3-11) BUN 16 (6-23) mg/dl Creatinine 1.04 (0.6-1.4) mg/dl Est Cr Clr Drug Dosing 97.9 ml/min Est GFR ( Amer) 106.6 ml/min Est GFR (Non-Af Amer) 91.9 ml/min BUN/Creatinine Ratio 15.4 (10-20) Glucose 98 (70-99(Fasting)) mg/dl Calcium 9.8 (8.6-10.3) mg/dl Total Bilirubin 1.5 H (0.2-1.0) mg/dl AST 27 (13-39) U/L ALT 46 (7-52) U/L Alkaline Phosphatase 109 H (34-104) U/L Troponin I High Sens < 2.3 (0-20) pg/ml Total Protein 8.2 (6.0-8.3) gm/dl Albumin 4.6 (3.4-5.0) gm/dl Globulin 3.6 (2.5-4.0) gm/dl Albumin/Globulin Ratio 1.3 (0.9-2) Lipase 23 (11-82) U/L Adenovirus (PCR) Not Detected (NotDetected) B. pertussis DNA (PCR) Not Detected (NotDetected) B.parapertussis DNA PCR Not Detected (NotDetected) C. pneumoniae DNA (PCR) Not Detected (NotDetected) Coronavirus OC43 (PCR) Not Detected (NotDetected) Coronavirus HKU1 (PCR) Not Detected (NotDetected) Coronavirus 229E (PCR) Not Detected (NotDetected) SARS-CoV-2 (PCR) Not Detected (NotDetected) Coronavirus NL63 (PCR) Not Detected (NotDetected) Human Metapneumovir PCR Not Detected (NotDetected) Influenza Type A (PCR) Not Detected (NotDetected) Influenza Type B (PCR) Not Detected (NotDetected) M. pneumoniae (PCR) Not Detected (NotDetected) Parainfluenza 1 (PCR) Not Detected (NotDetected) Parainfluenza 2 (PCR) Not Detected (NotDetected) Parainfluenza 3 (PCR) Not Detected (NotDetected) Parainfluenza 4 (PCR) Not Detected (NotDetected) RSV (PCR) Not Detected (NotDetected) Entero/Rhino (PCR) Not Detected (NotDetected) Administered Medications Discontinued Medications Acetaminophen (Ofirmev) 1,000 mg in 100 mls @ 400 mls/hr IV NOW STA Stop: 10/04/23 13:51 Last Admin: 10/04/23 13:47 Dose: 400 mls/hr Documented By: BLADIMIR Ioversol (Optiray 320 125ml) 119 ml IV ONCE ONE Stop: 10/04/23 14:36 Last Admin: 10/04/23 14:35 Dose: 119 ml Documented By: YESICA Imaging Data Radiologist's Impression: Chest X-Ray 10/04/23 13:20 SINGLE VIEW CHEST CLINICAL HISTORY: Atypical chest pain. FINDINGS: An AP, portable, upright chest radiograph is obtained. No prior studies are available for comparison at the time of dictation. The cardiomediastinal silhouette is unremarkable. There are small pleural effusions with dependent airspace opacities. No pneumothorax is seen. The bony thorax is grossly intact. IMPRESSION: There are small pleural effusions with dependent airspace opacities. This could represent atelectasis versus a pneumonitis. Clinical correlation will be required ACT 112: Negative or not required by law. Electronically signed by: Yoel Panda M.D. 10/04/2023 1:48 PM Chest CTA 10/04/23 14:06 CHEST CTA for PULMONARY ARTERIES CT DOSE: 646.91 mGy.cm HISTORY: PE; R sided pleuritic CP; elevated dimer TECHNIQUE: Multiaxial CT images of the chest were performed following the intravenous administration of contrast to evaluate the pulmonary arteries. 3D/Maximal intensity projection images were also obtained. Sagittal and coronal reformations were also reviewed. A dose lowering technique was utilized adhering to the principles of ALARA. COMPARISON STUDY: Chest 10/04/2023. FINDINGS: Normal caliber thoracic aorta with no evidence for a dissection. The heart is normal in size. Trace pericardial effusion. Small right and trace left pleural effusions are also noted. Limited views the upper abdomen demonstrate hepatic steatosis with areas of focal fatty sparing. The spleen appears mildly enlarged but is only partially imaged on this study. Normal thyroid gland. Filling defect seen within the right upper lobar and segmental pulmonary arteries best seen on image 126 consistent with acute pulmonary emboli. Remaining pulmonary arteries are patent. No evidence for right-sided heart strain. No mediastinal or hilar lymphadenopathy. Normal esophagus. Consolidation within the lower lobes posteriorly favors compressive atelectasis from the pleural effusions. No pneumothorax. The central airways are patent. No evidence for pulmonary edema. Peripheral consolidation within the right upper lobe favors a pulmonary infarct. This is best seen on image 145. No acute fractures identified. IMPRESSION: 1. Acute right upper lobe pulmonary emboli. 2. Peripheral consolidation within the right upper lobe favors a pulmonary infarct. 3. Hepatic steatosis with suggestion of mild splenomegaly. 4. Small right and trace left pleural effusions. 5. Trace pericardial effusion. ACT 112: Negative or not required by law. Electronically signed by: Kang Desai M.D. 10/04/2023 2:59 PM Discharge Plan Visit Data Chief Complaint: Cardiac Assessment ED Provider: Marcia Alegre Discharge Problem: Pulmonary embolism, Acute right-sided thoracic back pain, Embolism, pulmonary with infarction Forms Stand Alone Forms: [facility] Prescriptions Prescriptions: No Action gabapentin 300 mg capsule See Rx Instructions .ROUTE .COMPLEX Rx Instructions: Take 300mg w/ 200mg at bedtime to equal 500mg gabapentin 100 mg capsule 200 mg PO BID diphenhydramine HCl [Benadryl] 50 mg Capsule 50 mg PO HS prazosin 1 mg Capsule 1 mg PO HS olanzapine 10 mg Tablet 10 mg PO BID sertraline 50 mg tablet 50 mg PO DAILY Cabenuva 400 mg/2 mL- 600 mg/2 mL Suspension,Extended Release See Rx Instructions .ROUTE .COMPLEX Rx Instructions: CABOTEGRAVIR: Inject 2 ml (400mg intramuscularly once monthly; RILPIVIRINE: Inject 2 mL (600 mg) intramuscularly once monthly sennosides [senna] 8.6 mg Tablet 8.6 mg PO DAILY PRN (Reason: Constipation) acetaminophen 325 mg Tablet 650 mg PO Q4H PRN (Reason: Pain) calcium carbonate 500 mg calcium (1,250 mg) Capsule 1,000 mg PO TID PRN (Reason: gastric distress) Referrals Referrals: Kale Vazquez MD [Primary Care Provider] -
[2023-10-04] MEDS: ACETAMINOPHEN 1,000 MG/100 ML VIAL IV STA (13:47)
--- NOTE | 2023-10-04 13:49 | XRay Report ---
SINGLE VIEW CHEST CLINICAL HISTORY: Atypical chest pain. FINDINGS: An AP, portable, upright chest radiograph is obtained. No prior studies are available for c omparison at the time of dictation. The cardiomediastinal silhouette is unremarkable. There are small pleural effusions with dependent airspace opacities. No pneumothorax is seen. The bony thorax is luciano ssly intact. IMPRESSION: There are small pleural effusions with dependent airspace opacities. This could represent atelectasis versus a pneumonitis. Clinical correlation will be required ACT 112: Negative or not required by law. Electronically signed by: Yoel Panda M.D. 10/04/2023 1:48 PM
[2023-10-04 13:54] LABS: Alanine Aminotransferase 46 U/L (7-52); Albumin Globulin Ratio 1.3 (0.9-2); Albumin Level 4.6 gm/dl (3.4-5.0); Alkaline Phosphatase 109 U/L (34-104); Anion Gap 10 (3-11); Aspartate Aminotransferase 27 U/L (13-39); BUN Creatinine Ratio 15.4 (10-20); Bilirubin,Total 1.5 mg/dl (0.2-1.0); Blood Urea Nitrogen 16 mg/dl (6-23); Calcium 9.8 mg/dl (8.6-10.3); Carbon Dioxide 25 mmol/L (21-32); Chloride 102 mmol/L (98-107); Creatinine Clr Calc Pharmacy 97.9 ml/min; Est GFR (African American) 106.6 ml/min; Est GFR (Non-African American) 91.9 ml/min; Globulin 3.6 gm/dl (2.5-4.0); Glucose 98 mg/dl (70-99(Fasting)); Lipase 23 U/L (11-82); Potassium 3.7 mmol/L (3.5-5.1); Sodium 137 mmol/L (136-145); Total Protein 8.2 gm/dl (6.0-8.3)
[2023-10-04 13:56] LABS: Troponin I High Sensitivity < 2.3 pg/ml (0-20)
[2023-10-04 14:00] LABS: Prothrombin Time 11.3 Seconds (9.0-12.0)
[2023-10-04 14:07] LABS: D Dimer 2980 ug/L FEU (0-500)
[2023-10-04] MEDS: OPTIRAY 320 125ml IV ONE (14:35)
--- NOTE | 2023-10-04 15:01 | CT Scan Report ---
CHEST CTA for PULMONARY ARTERIES CT DOSE: 646.91 mGy.cm HISTORY: PE; R sided pleuritic CP; elevated dimer TECHNIQUE: Multiaxial CT images of the chest were performed following the intravenous administration of contrast to evaluate the pulmonary arteries. 3D/Maximal intensity projection images were also obta ined. Sagittal and coronal reformations were also reviewed. A dose lowering technique was utilized a dhering to the principles of ALARA. COMPARISON STUDY: Chest 10/04/2023. FINDINGS: Normal caliber thoracic aorta with no evidence for a dissection. The heart is normal in siz e. Trace pericardial effusion. Small right and trace left pleural effusions are also noted. Limited v iews the upper abdomen demonstrate hepatic steatosis with areas of focal fatty sparing. The spleen ap pears mildly enlarged but is only partially imaged on this study. Normal thyroid gland. Filling defec t seen within the right upper lobar and segmental pulmonary arteries best seen on image 126 consisten t with acute pulmonary emboli. Remaining pulmonary arteries are patent. No evidence for right-sided h eart strain. No mediastinal or hilar lymphadenopathy. Normal esophagus. Consolidation within the lowe r lobes posteriorly favors compressive atelectasis from the pleural effusions. No pneumothorax. The c entral airways are patent. No evidence for pulmonary edema. Peripheral consolidation within the right upper lobe favors a pulmonary infarct. This is best seen on image 145. No acute fractures identified . IMPRESSION: 1. Acute right upper lobe pulmonary emboli. 2. Peripheral consolidation within the right upper lobe favors a pulmonary infarct. 3. Hepatic steatosis with suggestion of mild splenomegaly. 4. Small right and trace left pleural effusions. 5. Trace pericardial effusion. ACT 112: Negative or not required by law. Electronically signed by: Kang Desai M.D. 10/04/2023 2:59 PM
[2023-10-04] MEDS ORDERED: Heparin IV Adult Wt-Based Standard w/ INITIAL Bolus Protocol IV STA (15:03)
[2023-10-04 15:07] LABS: Adenovirus PCR Not Detected (NotDetected); Bordetella parapertussis PCR Not Detected (NotDetected); Bordetella pertussis PCR Not Detected (NotDetected); Chlamydia pneumoniae PCR Not Detected (NotDetected); Coronavirus 229E PCR Not Detected (NotDetected); Coronavirus CoV-2 (COVID19)PCR Not Detected (NotDetected); Coronavirus HKU1 PCR Not Detected (NotDetected); Coronavirus NL63 PCR Not Detected (NotDetected); Coronavirus OC43PCR Not Detected (NotDetected); Human Metapneumovirus PCR Not Detected (NotDetected); Influenza A PCR Not Detected (NotDetected); Influenza B PCR Not Detected (NotDetected); Mycoplasma pneumoniae PCR Not Detected (NotDetected); Parainfluenza Virus 1 PCR Not Detected (NotDetected); Parainfluenza Virus 2 PCR Not Detected (NotDetected); Parainfluenza Virus 3 PCR Not Detected (NotDetected); Parainfluenza Virus 4 PCR Not Detected (NotDetected); Respiratory Syncytial VirusPCR Not Detected (NotDetected); Rhinovirus/Enterovirus PCR Not Detected (NotDetected)
[2023-10-04] MEDS ORDERED: HEPARIN SOD (PORCINE) 1000 UNIT/ML IV ONE (15:18)
--- NOTE | 2023-10-04 15:20 | History & Physical Report ---
Date of Service October 04, 2023 Assessment & Plan (1) Acute right-sided thoracic back pain: (2) Embolism, pulmonary with infarction: (3) Schizoaffective disorder: (4) HIV (human immunodeficiency virus infection): Plan This is a 38 yr old M who has a significant PMH of sickle cell trait, schizoaffective disorder and HIV who presents to ED 2/2 chest pain x 2 days. 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 Kale Vazquez Dispo: admit to [facility] Pt was seen and examined in collaboration with Dr. Collier, please see addendum A total of 55 minutes was spent coordinating, documenting, and providing care for this patient excluding time spent in the performance of separately billed services. This included personally viewing all current laboratories and imaging studies, medication reconciliation, outpatient chart review, and discussion with specialists. History of Present Illness Chief Complaint: chest pain and sob x 2 days. Primary Care Provider: Kale Vazquez MD This is a 38 yr old M who has a significant PMH of sickle cell trait, schi zoaffective disorder and HIV who presents to ED 2/2 chest pain x 2 days. He woke up 2 days ago with pain in his chest and trouble breathing. His sx got worse over the last 2 days. He denies any recent illness. He denies f/c/s, cough, hemoptysis, hematemesis, n/v/d, abd pain, melena or hematochezia. He denies any recent travel or any prior hx of blood clot. In regards to his sickle cell trait he never has had difficulty in the past. He follows with hematology. He does occasionally have blood in the urine. In ED pt remained hemodynamically stable. He was not hypoxic. He was having pin point chest pain to the R upper chest that was worse with inhalation. He was ordered IV heparin bolus and gtt. Allergies Allergy/AdvReac Type Severity Reaction Status Date / Time brexpiprazole Allergy Unknown ON MED LIST Unverified 01/07/23 13:03 quetiapine [From Seroquel] Allergy Unknown ON MED LIST Verified 01/07/23 13:03 trazodone Allergy Unknown ON MED LIST Verified 01/07/23 13:03 Home Medications Medication Instructions Recorded Confirmed Type acetaminophen 325 mg tablet 650 mg PO Q4H PRN Pain 01/07/23 10/04/23 History cabotegravir ER 400 mg/2 See Rx Instructions .Route .COMPLEX 01/07/23 10/04/23 History mL-rilpivirine ER 600 mg/2mL IM suspension,ER (Cabenuva) prazosin 1 mg capsule 2 mg PO HS 01/07/23 10/04/23 History sertraline 50 mg tablet 50 mg PO DAILY 01/07/23 10/04/23 History gabapentin 100 mg capsule 200 mg PO BID 10/04/23 10/04/23 History hydroxyzine HCl 10 mg tablet 10 mg PO TID 10/04/23 10/04/23 History olanzapine 15 mg-samidorphan 10 mg 1 tab PO HS 10/04/23 10/04/23 History tablet (Lybalvi) Past Med/Surg History Problem List Embolism, pulmonary with infarction (Acute) Acute right-sided thoracic back pain (Acute) Pulmonary embolism (Acute) Post traumatic stress disorder (PTSD) No significant past medical history (Chronic) Leukopenia (Acute) HIV (human immunodeficiency virus infection) (Acute) Schizoaffective disorder Acute abscess of maxillary sinus Medical History Methamphetamine use disorder, moderate, in early remission Depression with suicidal ideation Priapism Encounter for pre-operative examination Abscess of face Facial cellulitis Preseptal cellulitis Active intravenous drug use Surgical History History of incision and drainage (05/11/22) Right Intraoral Facial Abscess Incision and Drainage, Extraction of 5-6 Teeth(Right) - Uriel Valencia DMD No history of previous surgery Social History Smoking Status: Never smoker Tobacco Type: E-cigarettes / Vaping Do You Dip or Chew Tobacco: No; Hx Alcohol Use: No Hx Substance Use: Yes Prescribed Medications: Marijuana Last Used Substance: Unknown Preferred Language: Yi Communication Ability: Effective Toe Puncher Required: No Beliefs That Will Affect Care: None Current Living Situation: Family Current Living Situation Comment: lives with little brother Feels Safe at Home: Yes Gender Identity: Male Assistive Devices: None Review of Systems Review of Systems: All systems reviewed & are unremarkable except as noted in HPI & below Physical Exam Physical Exam: please refer to Dr. Collier addendum for physical exam findings. Results & Data Results & Data Vital Signs (Past 12 Hours) Vital Signs Temp Pulse Resp BP Pulse Ox O2 Del Method 10/04/23 14:42 73 15 93 10/04/23 14:08 79 10/04/23 14:00 78 14 94 10/04/23 13:54 79 13 93 10/04/23 13:31 93 Room Air 10/04/23 13:16 37 C 90 20 118/91 93 Room Air Laboratory Results I have independently reviewed and interpreted patient's admitting labs including CBC, CMP, ddimer, PT/INR, lipase, resp biofire, and troponin. Diagnostic Findings Chest X-Ray 10/04/23 13:20 SINGLE VIEW CHEST CLINICAL HISTORY: Atypical chest pain. FINDINGS: An AP, portable, upright chest radiograph is obtained. No prior studies are available for comparison at the time of dictation. The cardiomediastinal silhouette is unremarkable. There are small pleural effusions with dependent airspace opacities. No pneumothorax is seen. The bony thorax is grossly intact. IMPRESSION: There are small pleural effusions with dependent airspace opacities. This could represent atelectasis versus a pneumonitis. Clinical correlation will be required ACT 112: Negative or not required by law. Electronically signed by: Yoel Panda M.D. 10/04/2023 1:48 PM Chest CTA 10/04/23 14:06 CHEST CTA for PULMONARY ARTERIES CT DOSE: 646.91 mGy.cm HISTORY: PE; R sided pleuritic CP; elevated dimer TECHNIQUE: Multiaxial CT images of the chest were performed following the intravenous administration of contrast to evaluate the pulmonary arteries. 3D/Maximal intensity projection images were also obtained. Sagittal and coronal reformations were also reviewed. A dose lowering technique was utilized adhering to the principles of ALARA. COMPARISON STUDY: Chest 10/04/2023. FINDINGS: Normal caliber thoracic aorta with no evidence for a dissection. The heart is normal in size. Trace pericardial effusion. Small right and trace left pleural effusions are also noted. Limited views the upper abdomen demonstrate hepatic steatosis with areas of focal fatty sparing. The spleen appears mildly enlarged but is only partially imaged on this study. Normal thyroid gland. Filling defect seen within the right upper lobar and segmental pulmonary arteries best seen on image 126 consistent with acute pulmonary emboli. Remaining pulmonary arteries are patent. No evidence for right-sided heart strain. No mediastinal or hilar lymphadenopathy. Normal esophagus. Consolidation within the lower lobes posteriorly favors compressive atelectasis from the pleural effusions. No pneumothorax. The central airways are patent. No evidence for pulmonary edema. Peripheral consolidation within the right upper lobe favors a pulmonary infarct. This is best seen on image 145. No acute fractures identified. IMPRESSION: 1. Acute right upper lobe pulmonary emboli. 2. Peripheral consolidation within the right upper lobe favors a pulmonary infarct. 3. Hepatic steatosis with suggestion of mild splenomegaly. 4. Small right and trace left pleural effusions. 5. Trace pericardial effusion. ACT 112: Negative or not required by law. Electronically signed by: Kang Desai M.D. 10/04/2023 2:59 PM Medications Administered Medication List Discontinued Medications Acetaminophen (Ofirmev) 1,000 mg in 100 mls @ 400 mls/hr IV NOW STA Stop: 10/04/23 13:51 Last Admin: 10/04/23 13:47 Dose: 400 mls/hr Documented By: BLADIMIR Ioversol (Optiray 320 125ml) 119 ml IV ONCE ONE Stop: 10/04/23 14:36 Last Admin: 10/04/23 14:35 Dose: 119 ml Documented By: YESICA ECG Additional Comments: I have independently reviewed and interpreted patient's admitting EKG which revealed: 90 NSR, qtc 442ms COVID-19 Results Results COVID-19 Adm Lab Results: RBC 5.48 M/uL (4.70-6.10) 10/04/23 WBC 5.31 K/ul (4.8-10.8) 10/04/23 Hgb 15.6 g/dl (14.0-18.0) 10/04/23 Hct 43.2 % (42.0-52.0) 10/04/23 Plt Count 190 K/uL (130-400) 10/04/23 Neutrophils (%) (Auto) 65.7 % 10/04/23 Lymphocytes (%) (Auto) 22.2 % 10/04/23 Monocytes # (Auto) 0.44 K/uL (0.11-0.59) 10/04/23 Eosinophils # (Auto) 0.16 K/uL (0.00-0.50) 10/04/23 Immature Granulocyte % (Auto) 0.2 % 10/04/23 Neutrophils # (Auto) 3.49 K/uL (1.40-6.50) 10/04/23 Lymphocytes # (Auto) 1.18 K/uL (1.20-3.40) L 10/04/23 Monocytes # (Auto) 0.44 K/uL (0.11-0.59) 10/04/23 Eosinophils # (Auto) 0.16 K/uL (0.00-0.50) 10/04/23 Basophils # (Auto) 0.03 K/uL (0.00-0.20) 10/04/23 Immature Granulocyte # (Auto) 0.01 K/uL (0.01-0.20) 4 K 3.7 mmol/L (3.5-5.1) 10/04/23 Cl 102 mmol/L (98-107) 10/04/23 CO2 25 mmol/L (21-32) 10/04/23 Anion Gap 10 (3-11) 10/04/23 BUN 16 mg/dl (6-23) 10/04/23 Creatinine 1.04 mg/dl (0.6-1.4) 10/04/23 BUN/Creatinine Ratio 15.4 (10-20) 10/04/23 Glucose Level 98 mg/dl (70-99(Fasting)) 10/04/23 Ca 9.8 mg/dl (8.6-10.3) 10/04/23 Total Bilirubin 1.5 mg/dl (0.2-1.0) H 10/04/23 AST/SGOT 27 U/L (13-39) 10/04/23 ALT/SGPT 46 U/L (7-52) 10/04/23 Alkaline Phosphatase 109 U/L (34-104) H 10/04/23 Total Protein 8.2 gm/dl (6.0-8.3) 10/04/23 Albumin 4.6 gm/dl (3.4-5.0) 10/04/23 Globulin 3.6 gm/dl (2.5-4.0) 10/04/23 Albumin/Globulin Ratio 1.3 (0.9-2) 10/04/23 D-Dimer 2980 ug/L FEU (0-500) H* 10/04/23 INR 1.0 (0.9-1.1) 10/04/23 Adenovirus (PCR) Not Detected (NotDetected) 10/04/23 B. parapertussis DNA (PCR) Not Detected (NotDetected) 09/06 10/29 B. pertussis DNA (PCR) Not Detected (NotDetected) 10/04/23 C. pneumoniae DNA (PCR) Not Detected (NotDetected) 4 Coronavirus Type OC43 (PCR) Not Detected (NotDetected) Coronavirus Type HKU1 (PCR) Not Detected (NotDetected) Coronavirus Type 229E (PCR) Not Detected (NotDetected) COVID-19 PCR Not Detected (NotDetected) 10/04/23 Coronavirus Type NL63 (PCR) Not Detected (NotDetected) Human Metapneumovirus (PCR) Not Detected (NotDetected) Influenza Virus Type A (PCR) Not Detected (NotDetected) Influenza Virus Type B (PCR) Not Detected (NotDetected) M. pneumoniae (PCR) Not Detected (NotDetected) 10/04/23 Parainfluenza Type 1 (PCR) Not Detected (NotDetected) 09/06 10/29 Parainfluenza Type 2 (PCR) Not Detected (NotDetected) 09/06 10/29 Parainfluenza Type 3 (PCR) Not Detected (NotDetected) 09/06 10/29 Parainfluenza Type 4 (PCR) Not Detected (NotDetected) 09/06 10/29 RSV (PCR) Not Detected (NotDetected) 10/04/23 Enterovirus/Rhinovirus (PCR) Not Detected (NotDetected) Chest X-Ray 10/04/23 Code Status & VTE Plan Code Status FULL CODE VTE Prophylaxis Plan VTE Prophylaxis will be ordered: No Supervising Physician Co-Signing Physician Notes Patient is a 38-year-old male with history of HIV, schizoaffective disorder, sickle cell trait and other medical problems presents with history of right- sided pleuritic chest pain associated with shortness of breath which has been g radually worsening for the past 2 days. Reports chronic intermittent hematuria which he attributes to sickle cell trait. Denies any fever, chills, nausea, vomiting, abdominal pain. Also denies any history of clotting issues in the past. Please review HPI for complete details of presentation. I personally reviewed blood work and imaging studies. Bio fire negative. CTA chest suggestive of acute right upper lobe pulmonary emboli with findings suggestive of pulmonary infarct. Also noted trace pleural effusion and pericardial effusion. EKG showed normal sinus rhythm, nonspecific T wave abnormality, QTc 442. Physical Exam: Vitals signs as noted above General Appearance:Moderately built and nourished, no apparent distress Head: normocephalic, Atraumatic Eyes: normal inspection, EOMI Neck: supple, Trachea midline Respiratory/Chest: Decreased breath sounds, CTA, No accessory muscle use Cardiovascular: S1, S2, No murmur Abdomen/GI:Soft, Non tender, Bowel sounds present Extremities/Musculoskeletal:normal inspection, no edema Neurologic/Psych:AAOX3, grossly no focal neurological deficits Skin: normal color, warm Acute pulmonary embolism with pulmonary infarct Likely due to sickle cell trait Hypercoagulable workup pending Check resting echo Started on IV heparin Pain control Saturating well on room air Advised to follow-up with hematology as outpatient I personally interviewed and examined at bedside. Patient's care is coordinated with Kanchan Fong PA-C. I have reviewed the advanced practitioner's documentation, and I agree with plan of care. Please refer to the documentation above for details of patient's presentation and for discussion of other issues. I spent a total [id number] coordinating, documenting, and providing care for this patient excluding time spent in the performance of separately billed services. (3) Schizoaffective disorder Schizoaffective disorder type: depressive Qualified Code(s): F25.1 - Schizoaffective disorder, depressive type (4) HIV (human immunodeficiency virus infection) HIV symptom status: unspecified Qualified Code(s): B20 - Human immunodeficiency virus [HIV] disease
[2023-10-04] MEDS: fentaNYL citrate PF 100 MCG/2 ML VIAL IV STA (15:42)
[2023-10-04] MEDS: HEPARIN SODIUM/DEXTROSE 25,000 UNITS/500 ML BAG IV SCH (15:48)
[2023-10-04] MEDS: HEPARIN SOD (PORCINE) 1000 UNIT/ML IV ONE (15:48)
[2023-10-04] MEDS: KETOROLAC TROMETHAMINE 15 MG/ML VIAL IV ONE (16:44)
[2023-10-04 17:13] LABS: Appearance Urine Clear (Clear); Bilirubin Urine Negative (Negative); Blood Urine Negative (Negative); Color Urine Yellow; Glucose Urine UA Negative (Negative); Ketones Urine Trace (Negative); Leukocyte Esterase Urine Negative (Negative); Nitrite Urine Negative (Negative); Protein Urine Negative (Negative); Specific Gravity Urine > 1.045 (1.000-1.030); Urobilinogen Urine Negative (Negative)
[2023-10-04] MEDS ORDERED: POLYETHYLENE (MIRALAX) 17 GM PACK PO PRN (19:10)
[2023-10-04] MEDS ORDERED: ACETAMINOPHEN 1,000 MG/100 ML VIAL IV PRN (19:10)
[2023-10-04] MEDS ORDERED: ONDANSETRON INJ 2 MG/ML 2 ML VIAL IV PRN (19:10)
--- OUTSIDE RECORDS SUMMARY | 2023-10-04 20:27 | External Medical Summary | Summary of Care ---
Author Name Unknown Organization [facility] Address [address] [place] [address] Phone [phone] Care Team Providers Care Central Sterile Tech Name Role Phone Kale Vazquez MD Primary Care Provider [phone] Reason for Visit * Reason Onset Date Comments Hospital Follow-Up Hospital Follow-Up 09/18/2023 Encounter Details Date Type Department Care Team (Late st Contact Info) Description 09/18/2023 1:40 PM EDT Office Visit [facility] [address] [place] [address] JuneKale MD [address] [place] [address] Hospital discharge follow-up*; Schizoaffective disorder, unspecified type (HCC); HIV disease (HCC) Allergies Active Allergy Reactions Criticality Noted Date Comments Quetiapine 05/23/2022 Trazodone 05/23/2022 documented as of this encounter (statuses as of 09/21/2023) Medications Medication Sig Dispensed Refills Start Date End Date Status Gabapentin 100 MG Oral Capsule (Neurontin) TAKE 2 CAPSULES ORALLY AT BEDTIME. MAY TAKE ADDITION 100 MG TWICE A DAY NEEDED FOR ANXIETY/PAIN 12/09/2022 Active Gabapentin 300 MG Oral Capsule (Neurontin) TAKE 1 CAPSULE ORALLY AT BEDTIME TAKE WITH 200 YG=324 MG 12/09/2022 Active Sertraline HCl 25 MG Oral Tablet (Zoloft) Take 1 Tablet by mouth in the morning. Active hydrOXYzine HCl 10 MG Oral Tablet (Atarax) Take 1 Tablet by mouth 3 times a day as needed for Anxiety. 09/17/2023 Active Lybalvi 15-10 MG Oral Tablet Take 1 Tablet by mouth daily. 09/02/2023 Active Prazosin HCl 2 MG Oral Capsule (Minipress) Take 1 Capsule by mouth at bedtime. 09/02/2023 Active Mirtazapine 15 MG Oral Tablet (Remeron)Indicati ons:Adjustment disorder, unspecified type Take 1 Tablet by mouth at bedtime. 30 Tablet 2 05/23/2022 09/18/2023 Discontinued (Medication List Clean Up) predniSONE 10 MG Oral Tablet (Deltasone) Take 5 tabs for 2 days, 4 tabs for 2 days, 3 tabs for 2 days, 2 tabs for 2 days 1 tab for 2 days 30 Tablet 11/16/2022 09/18/2023 Discontinued (Medication List Clean Up) Benzonatate 100 MG Oral Capsule (Tessalon Perles) Take 1 Capsule by mouth 3 times a day as needed for Cough. Do not cut, crush, or chew. 50 Capsule 1 11/16/2022 09/18/2023 Discontinued (Medication List Clean Up) documented as of this encounter (statuses as of 09/21/2023) Active Problems Problem Noted Date Diagnosed Date HIV disease 09/18/2023 Schizoaffective disorder 09/18/2023 Food insecurity 06/12/2022 Overview: Per [facility] Protocol documented as of this encounter (statuses as of 09/21/2023) Social History Tobacco Use Types Packs/Day Years Used Date Smoking Tobacco: Never Smokeless Tobacco: Never Alcohol Use Standard Drinks/Week Comments Not Currently 0 (1 standard drink = 0.6 oz pur e alcohol) PHQ-2 Answer Date Recorded PHQ Adult Total Score 0 05/23/2022 Hunger Vital Sign Answer Date Recorded Within the past 12 months, y ou worried that your food would run out before you got the money to buy more. Often true 05/24/19 23 Within the past 12 months, t he food you bought just didn't last and you didn't have money to get more. Often true 05/23/2022 Utilities Answer Date Recorded Do you have trouble paying y our heating, water, or electric bill? (Adult - for ages 18 years and over) Not on file 07/24/2023 Is your family able to pay t he heat, water, or electric bill? (Household - for ages 0-17 years) Not on file 07/24/2023 Does your family have access to good internet? (Household - for ages 0-17 years) Not on file 07/24/2023 Social Connections Answer Date Recorded How often do you feel lonely or isolated from those around you? (Adult - for ages 18 years and over) Not on file 07/24/2023 Sex and Gender Information Value Date Recorded Sex Assigned at Not on file Gender Identity Not on file Sexual Orientation Not on file Job Start Date Occupation Industry Not on file Not on file Not on file documented as of this encounter Last Filed Vital Signs Vital Sign Reading Time Taken Comments Blood Pressure 120/70 09/18/2023 1:30 PM EDT Pulse 77 09/18/2023 1:30 PM EDT Temperature 36.5 C (97.7 F) 09/18/2023 1:30 PM ED T Respiratory Rate 16 09/18/2023 1:30 PM EDT Oxygen Saturation - - Inhaled Oxygen Concentration - - Weight 83.9 kg (185 lb) 09/18/2023 1:30 PM EDT Height - - Body Mass Index 29.86 06/22/2023 9:29 AM EDT documented in this encounter Progress Notes * Kale Vazquez MD - 09/18/2023 1:45 PM EDT Images from the original note were not included. Assessment and Plan No changes to medications at the visit today. Continue to follow up with Psychiatry for ongoing care for schizoaffective disorder. I will review the notes from the hospitalization when available. 1. Schizoaffective disorder, unspecified type (HCC) 2. HIV disease (HCC) 3. Hospital discharge follow-up - DISCH MED RECON CUR MED LIS Wrap-Up Follow up as needed. History of Present Illness The patient is a 38 year old male who presents for hospital follow up. Unfortunately there are no records available from the patient's hospitalization. Patient was an unreliable historian and presents alone. We will await records and I will addend the note once they areavailable. Was using crystal meth and marijuana. Sees Kassie Norton at the [facility] for psychiatry. Patient denies medication changes. Has follow up 09/24/2023 with psychiatry. Today reports feeling well. Taking all medications as prescribed. Does need refills for which he will reach out to psychiatry who typically prescribes. Physical Exam Vitals: 09/18/23 1330 Temp: 36.5 C (97.7 F) Pulse: 77 Resp: 16 BP: 120/70 Physical Exam Physical Exam Vitals reviewed. Constitutional: General: He is not in acute distress. Cardiovascular: Rate and Rhythm: Normal rate and regular rhythm. Heart sounds: No murmur heard. Pulmonary: Effort: Pulmonary effort is normal. No respiratory distress. Breath sounds: Normal breath sounds. No wheezing. Neurological: General: No focal deficit present. Mental Status: He is alert. Psychiatric: Mood and Affect: Mood normal. Behavior: Behavior normal. Time: I spent a total of 30-39 minutes (exact time 32 mins) on the date of service in preparation, delivery, and documentation of the care provided to the patient excluding any time spent in the performance of separately billed services. This note has been completed in part utilizing [employer] Speech Voice Recognition Software. Due to technical limitations of the software, grammatical errors, random word insertions, prounoun errors, and incomplete sentences may occur. Any formal questions or concerns about the content, text, or information contained within the body of this dictation should be directly addressed to the provider for clarification. documented in this encounter Nursing Notes * Celeste Cheng LPN - 09/18/2023 1:30 PM EDT Hospital follow up documented in this encounter Plan of Treatment Health Maintenance Due Date Last Done Comments MENINGOCOCCAL (MENACTRA/MENV EO) (1 - Risk 2-dose series) 08/11/1989 COVID-19 Vaccine (#1) 08/11/1992 Hepatitis C Screening 08/11/2005 DTaP,Tdap,and Td Vaccines (1 - Tdap) 08/11/2006 HPV (Gardasil) Vaccine (2 - Risk 3-dose SCDM series) 10/17/2022 09/19/2022 Hepatitis B Vaccine (2 of 3 - 19+ 3-dose series) 10/17/2022 09/19/2022 Depression Screening 05/24/2023 05/23/2022 Influenza Vaccine (FLU shot) (#1) 2023 023 Diabetes Screening 06/25/2026 06/26/2023, 0 06/26/2023, 06/22/2023, Additional history exists Pneumococcal Vaccine: Pediat rics (0 to 5 Years) and At-Risk Patients (6 to 64 Years) Completed 10/17/2022 documented as of this encounter Medical Devices Not on filedocumented as of this encounter Visit Diagnoses Diagnosis Hospital discharge follow-up- Primary Other follow-up examination Schizoaffective disorder, unspecified type (HCC) HIV disease (HCC) Human immunodeficiency virus [HIV] disease documented in this encounter Care Teams Central Sterile Tech Relationship Specialty Start Date End Date June, Kale Frances MD [address] [place] [address] PCP - General Family Medicine 05/23/22 documented as of this encounter
--- OUTSIDE RECORDS SUMMARY | 2023-10-04 20:28 | External Medical Summary ---
Author Name Unknown Address Unknown Organization [id number]:[facility] [place] [address] [place] [address] Laboratory Report Ordering Provider Test Date Status CALVIN ALEJO 06/22/2023 10:09:03 Final Observation Date Value Abnormality Reference (Units ) Status Folic Acid 06/22/2023 10:09:03 11.3 >4.5 (ng/ mL) Final Performing Location [facility] [place] [address] [place] [id number]
--- OUTSIDE RECORDS SUMMARY | 2023-10-04 20:28 | External Medical Summary | Summary of Care ---
Author Name Unknown Organization [facility] Address [address] [place] [address] Phone [phone] Care Team Providers Care Earth Observations Chief Scientist Name Role Phone Kale Vazquez MD Primary Care Provider [phone] Reason for Visit * Reason Comments Outpatient Testing Encounter Details Date Type Department Care Team (Late st Contact Info) Description 06/22/2023 10:50 AM EDT Laboratory Laboratory [facility] [place] [address] [place] [phone] [place], [address] [place] [address] Arrived Allergies Active Allergy Reactions Criticality Noted Date Comments Quetiapine 05/23/2022 Trazodone 05/23/2022 documented as of this encounter (statuses as of 06/22/2023) Medications Medication Sig Dispensed Refills Start Date End Date Status Mirtazapine 15 MG Oral Tablet (Remeron)Indication s:Adjustment disorder, unspecified type Take 1 Tablet by mouth at bedtime. 30 Tablet 2 05/23/2022 Active Additional Information Patient not taking.Reported on 12/18/2022 predniSONE 10 MG Oral Tablet (Deltasone) Take 5 tabs for 2 days, 4 tabs for 2 days, 3 tabs for 2 days, 2 tabs for 2 days 1 tab for 2 days 30 Tablet 0 11/16/2022 Active Additional Information Patient not taking.Reported on 12/18/2022 Benzonatate 100 MG Oral Capsule (Tessalon Perles) Take 1 Capsule by mouth 3 times a day as needed for Cough. Do not cut, crush, or chew. 50 Capsule 1 11/16/2022 Active Additional Information Patient not taking.Reported on 12/18/2022 Gabapentin 100 MG Oral Capsule (Neurontin) TAKE 2 CAPSULES ORALLY AT BEDTIME. MAY TAKE ADDITION 100 MG TWICE A DAY NEEDED FOR ANXIETY/PAIN 0 12/09/2022 Active Gabapentin 300 MG Oral Capsule (Neurontin) TAKE 1 CAPSULE ORALLY AT BEDTIME TAKE WITH 200 IM=521 MG 0 12/09/2022 Active Sertraline HCl 25 MG Oral Tablet (Zoloft) Take 1 Tablet by mouth in the morning. 0 Active documented as of this encounter (statuses as of 06/22/2023) Active Problems Problem Noted Date Diagnosed Date Food insecurity 06/12/2022 Overview: Per [facility] Protocol documented as of this encounter (statuses as of 06/22/2023) Social History Tobacco Use Types Packs/Day Years [...] money to get more. Often true 05/23/2022 Sex and Gender Information Value Date Recorded Sex Assigned at Not on file Gender Identity Not on file Sexual Orientation Not on file Job Start Date Occupation Industry Not on file Not on file Not on file documented as of this encounter Plan of Treatment Upcoming Encounters Date Type Department Care Team (Late st Contact Info) Description 09/11/2023 8:15 AM EDT Office Visit Urology, [facility] [place] [address] [facility] [place] [id number] Angel Stacy MD [address] [facility] [address] [place] [address] Health Maintenance Due Date Last Done Comments HIV Screening 08/11/2002 Hepatitis C Screening 08/11/2005 DTaP,Tdap,and Td Vaccines (1 - Tdap) 08/11/2006 COVID-19 Vaccine (1 - 2022-2 4 season) 2022 GARDASIL-HPV IMMUNIZATION SERIES (2 - 3-dose SCDM series) 10/17/2022 09/19/2022 Hepatitis B (2 of 3 - 19+ 3-dose series) 10/17/2022 09/19/2022 Depression Screening 05/24/2023 05/23/2022 Diabetes Screening 06/28/2025 06/28/2022, 06/28/2022, 05/11/2022 Influenza Vaccine (FLU shot) Completed 10/17/2022 Pneumococcal Vaccine: Pediatrics (0 to 5 Years) and At-Risk Patients (6 to 64 Years) Aged Out 10/17/2022 No longer eligible b ased on patient's age to complete this topic MENINGOCOCCAL (MENACTRA/MENVEO) Aged Out No longer eligible b ased on patient's age to complete this topic documented as of this encounter Medical Devices Not on filedocumented as of this encounter Care Teams Earth Observations Chief Scientist Relationship Specialty Start Date End Date June, Kale Frances MD [address] [place] [address] PCP - General Family Medicine 05/23/22 documented as of this encounter
--- OUTSIDE RECORDS SUMMARY | 2023-10-04 20:28 | External Medical Summary ---
Author Name Unknown Address Unknown Organization [id number]:LABORATORY [facility] – [place] - [address] [place] [address] Laboratory Report Ordering Provider Test Date Status MELOCALVIN 06/22/2023 10:09:03 Final Observation Date Value Abnormality Reference (Units ) Status Haptoglobin 06/22/2023 10:09:03 <10 Below low normal 3 0-200 (mg/dL) Final Performing Location LABORATORY C - [address] [place] [address]
--- OUTSIDE RECORDS SUMMARY | 2023-10-04 20:28 | External Medical Summary ---
Author Name Unknown Address Unknown Organization [id number]:LABORATORY [facility] [place] - [facility] [address] [place] [address] Laboratory Report Ordering Provider Test Date Status TRACY BLUE 06/26/2023 10:56:00 Final Observation Date Value Abnormality Reference (Units ) Status WBC, Total 06/26/2023 10:56:00 3.99 Below low normal 4.00-10.80 (K/uL) Final RBC 06/26/2023 10:56:00 5.20 4.50-5.25 (M/uL) Final Hemoglobin 06/26/2023 10:56:00 14.8 14.0-16.8 (g/dL) Final HCT 06/26/2023 10:56:00 43.2 40.0-48.4 (%) Final MCV 06/26/2023 10:56:00 83.1 82.0-99.5 (fL) Final MCH 06/26/2023 10:56:00 28.5 27.0-34.0 (pg) Final MCHC 06/26/2023 10:56:00 34.3 32.0-36.0 (g/dL) Final RDW 06/26/2023 10:56:00 14.0 11.5-15.5 (%) Final Platelets 06/26/2023 10:56:00 182 140-400 (K/uL) Final MPV 06/26/2023 10:56:00 10.3 6.6-11.1 (fL) Final Nucleated erythrocytes/100 leukocytes [Ratio] in Blood by Automated count 06/26/2023 10:56:00 0 <=0 (/100 WBCs) Final Performing Location LABORATORY [facility] [place] - [address] [place] [address]
--- OUTSIDE RECORDS SUMMARY | 2023-10-04 20:28 | External Medical Summary ---
Author Name Unknown Address Unknown Organization [id number]:[place] [facility] [place] [address] [place] [address] Laboratory Report Ordering Provider Test Date Status CALVIN ALEJO 06/22/2023 10:09:03 Final Observation Date Value Abnormality Reference (Units ) Status Retic, % (auto) 06/22/2023 10:09:03 2.80 Above high normal 0.80-1.90 (%) Final Reticulocytes, Absolute 06/22/2023 10:09:03 141.4 Above high normal 31.3-100.1 (K/uL) Final Reticulocyte fraction, immature 06/22/2023 10:09:03 25.5 Above high normal 2.5-20.6 (%) Final Reticulocyte HGB 06/22/2023 10:09:03 33.3 29.7-37.4 (pg) Final Performing Location [facility] [place] [address] [place] [address]
--- OUTSIDE RECORDS SUMMARY | 2023-10-04 20:28 | External Medical Summary ---
Author Name Unknown Address Unknown Organization K09:LABORATORY [facility] - [address] [place] [address] Laboratory Report Ordering Provider Test Date Status CALVIN ALEJO 06/22/2023 10:09:03 Final Observation Date Value Abnormality Reference (Units ) Status BUN 06/22/2023 10:09:03 15 6-20 (mg/dL) Final Creatinine 06/22/2023 10:09:03 1.0 0.6-1.2 (mg/dL) Final Glomerular filtration rate/1.73 sq M.predicted [Volume Rate/Area] in Serum, Plasma or Blood by Creatinine-based formula (CKD-EPI) 06/22/2023 10:09:03 >90 >=60 (mL/min) Final eGFR is calculated based on the CKD-EPI 2020 equation Sodium 06/22/2023 10:09:03 140 135-146 (m mol/L) Final Potassium 06/22/2023 10:09:03 3.7 3.5-5.1 (m mol/L) Final Cl 06/22/2023 10:09:03 104 98-107 (mm ol/L) Final CO2 06/22/2023 10:09:03 25 22-32 (mmo l/L) Final Anion gap 06/22/2023 10:09:03 11 7-15 (mmol /L) Final Glucose 06/22/2023 10:09:03 106 70-120 (mg /dL) Final Albumin 06/22/2023 10:09:03 4.5 3.8-5.0 (g /dL) Final AST (Aspartate aminotransferase) 06/22/2023 10:09:03 40 10-50 (U/L) Fin al Alk Phos 06/22/2023 10:09:03 101 35-130 (U/ L) Final Bilirubin, Total 06/22/2023 10:09:03 1.1 <=1 .2 (mg/dL) Final Calcium 06/22/2023 10:09:03 9.7 8.4-10.2 ( mg/dL) Final Protein 06/22/2023 10:09:03 7.7 6.0-8.3 (g /dL) Final ALT (Alanine aminotransferase) 06/22/2023 10:09:03 57 Above high normal 10-50 (U/L) Final Performing Location LABORATORY [facility] [address] [place] [address]
--- OUTSIDE RECORDS SUMMARY | 2023-10-04 20:28 | External Medical Summary ---
Author Name Unknown Address Unknown Organization K01:LABORATORY [facility] [place] - [address] [place] [address] Laboratory Report Ordering Provider Test Date Status TRACY BLUE 06/26/2023 10:56:00 Final Observation Date Value Abnormality Reference (Units ) Status Triglyceride 06/26/2023 10:56:00 176 Above high normal <=174 (mg/dL) Final Triglyceride Reference Range s (mg/dL):
<150 Acceptable
150-174 Borderline high
175-499 High
>=500 Very high Cholesterol 06/26/2023 10:56:00 191 <200 (mg /dL) Final Total Cholesterol Reference Ranges (mg/dL):
<200 Desirable
200-239 Borderline high
>=240 High HDL 06/26/2023 10:56:00 33 Below low normal >39 (mg/dL) Final HDL Cholesterol Reference Ra nges (mg/dL):
>=60 High (Desirable)
<50 Low (Undesirable) For Females
<40 Low (Undesirable) For Males NON-HDL CHOLESTEROL 06/26/2023 10:56:00 158 <=159 (mg/dL) Final Non-HDL Cholesterol Referenc e Range (mg/dL):
<100 Target level for high risk ASCVD patient
<130 Optimal for general population
130-159 Near optimal for general population
160-189 Borderline High
190-219 High
>=220 Very High LDL, (calculated) 06/26/2023 10:56:00 123 <= 129 (mg/dL) Final LDL Cholesterol Reference Ra nges (mg/dL):
<70 Target level for high risk ASCVD patient
<100 Optimal for general population
100-129 Near optimal for general population
130-159 Borderline high
160-189 High
>=190 Very high Performing Location LABORATORY [facility] [place] - [address] [facility] [address]
--- OUTSIDE RECORDS SUMMARY | 2023-10-04 20:28 | External Medical Summary ---
Author Name Unknown Address Unknown Organization K01:LABORATORY [facility] [place] - [address] [place] [address] Laboratory Report Ordering Provider Test Date Status TRACY BLUE 06/26/2023 10:56:00 Final Observation Date Value Abnormality Reference (Units ) Status SYNC LEUKOCYTES IN BLOOD BY AUTOMATED COUNT 06/26/2023 10:56:00 3.99 Below low normal 4.00-10.80 (K/uL) Final Segs 06/26/2023 10:56:00 53.5 40.0-75.0 (%) Final Lymphs % 06/26/2023 10:56:00 30.3 18.0-42.0 (%) Final Monos 06/26/2023 10:56:00 7.8 1.0-11.0 (%) Final Eosinophils 06/26/2023 10:56:00 7.3 Above high normal 0.0-6.0 (%) Final Basos 06/26/2023 10:56:00 0.8 0.0-2.0 (%) Final Immature Granulocyte, Percent 06/26/2023 10:56:00 0.3 0.0-2.0 (%) Final Absolute Segs 06/26/2023 10:56:00 2.14 1.80-7.70 (K/uL) Final Lymphs, absolute 06/26/2023 10:56:00 1.21 1.00-4.80 (K/ul) Final Monos, Abs 06/26/2023 10:56:00 0.31 0.00-1.10 (K/uL) Final Eos, Abs 06/26/2023 10:56:00 0.29 0.00-0.70 (K/uL) Final Basos, Abs 06/26/2023 10:56:00 0.03 0.00-0.20 (K/uL) Final Immature Granulocytes, Number 06/26/2023 10:56:00 0.01 0.00-0.20 (K/uL) Final Performing Location LABORATORY [facility] [place] - [address] [facility] [address]
--- OUTSIDE RECORDS SUMMARY | 2023-10-04 20:28 | External Medical Summary ---
Author Name Unknown Address Unknown Organization : Laboratory Report Ordering Provider Test Date Status CALVIN ALEJO 06/22/2023 10:09:03 Final Observation Date Value Abnormality Reference (Units ) Status RBC 06/22/2023 10:09:03 5.02 4.20-5.80 (Mill/uL) Final Hemoglobin 06/22/2023 10:09:03 14.1 13.2-17.1 (g/dL) Final HCT 06/22/2023 10:09:03 42.5 38.5-50.0 (%) Final MCV 06/22/2023 10:09:03 84.7 80.0-100.0 (fL) Final MCH 06/22/2023 10:09:03 28.1 27.0-33.0 (pg) Final RDW 06/22/2023 10:09:03 14.8 11.0-15.0 (%) Final Hemoglobin A/Hemoglobin.total in Blood 06/22/2023 10:09:03 56.5 Below low normal >96.0 (%) Final Hemoglobin F/Hemoglobin.total in Blood 06/22/2023 10:09:03 0.3 <2.0 (%) Final Hemoglobin A2/Hemoglobin.total in Blood 06/22/2023 10:09:03 3.3 Above high normal 2.0-3.2 (%) Final Hemoglobin S screen (Sickle-cell) 06/22/2023 10:09:03 39.9 Above high normal 0.0 (%) Final For more information on this test, go to:
http://education.[employer]/faq/PCX62d0
(This link is being provided for informational/
educational purposes only.) HEMOGLOBIN C 06/22/2023 10:09:03 DNR Final Hemoglobin E 06/22/2023 10:09:03 DNR Final OTHER HEMOGLOBIN 1 06/22/2023 10:09:03 DNR Final OTHER HEMOGLOBIN 2 06/22/2023 10:09:03 DNR Final Hemoglobin pattern [Interpretation] in Blood 06/22/2023 10:0 9:03 SEE BELOW Final PRESUMPTIVE SICKLE CELL LEYDA T*
There are two peaks, one is Hb A and the other is Hb S.
The sickle solubility test is positive.
Sickle cell trait usually is not regarded as a
disease state because the vast majority of
individuals are asymptomatic. People with
uncomplicated sickle cell trait have a normal CBC,
reticulocyte count, and red cell morphology. The
main clinical significance of sickle cell trait is
in counseling prospective parents. This is
because of the possibility of sickle cell anemia
or disease if one parent has sickle cell trait and
the other parent also has sickle cell trait or
other hemoglobinopathy that interacts with Hb S.
If microcytosis is present, the patient may also
be a carrier for alpha thalassemia and the
percentage of Hb S is usually less than 35%.
* This interpretation assumes the patient has
not been transfused in the past three months.

Test Performed at:
[facility]
[address] [facility] [place] [address]
Kang Tabor M.D., Ph.D.,Director of Laboratories Performing Location
--- OUTSIDE RECORDS SUMMARY | 2023-10-04 20:28 | External Medical Summary | Summary of Care ---
Author Name Unknown Organization [facility] Address [address] [place] [address] Phone [phone] Care Team Providers Care Locks Tender Name Role Phone Kale Vazquez MD Primary Care Provider [phone] Reason for Visit * Reason Onset Date Comments Test Results 06/25/2023 Encounter Details Date Type Department Care Team (Late st Contact Info) Description 06/25/2023 Telephone Hematology/Oncology Treatment, [place] [address] [place] [address] Sb Sainz MD [address] [place] [address] Test Results Allergies Active Allergy Reactions Criticality Noted Date Comments Quetiapine 05/23/2022 Trazodone 05/23/2022 documented as of this encounter (statuses as of 07/03/2023) Medications Medication Sig Dispensed Refills Start Date [...] tab for 2 days 30 Tablet 11/16/2022 Active Additional Information Patient not taking.Reported [...] CAPSULE ORALLY AT BEDTIME TAKE WITH 200 FM=286 MG 12/09/2022 Active Sertraline HCl 25 MG Oral Tablet (Zoloft) Take 1 Tablet by mouth in the morning. Active documented as of this encounter (statuses as of 07/03/2023) Active Problems Problem Noted Date Diagnosed Date Food insecurity 06/12/2022 Overview: Per [facility] Protocol documented as of this encounter (statuses as of 07/03/2023) Social History Tobacco Use Types Packs/Day Years [...] on file documented as of this encounter Miscellaneous Notes * Telephone Encounter - Roseline Sánchez RN - 07/03/2023 10:08 AM EDT Patient did not read MyG. Called patient, he verbalized understanding and will get folic acid OTC. * Telephone Encounter - Roseline Sánchez RN - 06/25/2023 3:20 PM EDT MyG sent. * Telephone Encounter - Roseline Sánchez RN - 06/25/2023 3:18 PM EDT ----- Message from Sb Sainz MD sent at 06/24/2023 9:23 PM EDT ----- Blood workup done on 06/22/2023: -normal kidney and liver function test -LDH --> 135 -haptoglobin--> < 10 -Absolute reticulocyte count --> 141,000 -folic acid --> 11.3 Overall stable blood workup, expected reticulocyte count which is higher side along with low-level haptoglobin. Normal LDH. Normal LFT. I would like to start folic acid 1 mg every day.(alf) documented in this encounter Plan of Treatment Upcoming Encounters Date Type Department Care Team (Late st Contact Info) Description 09/11/2023 8:15 AM EDT Office Visit [facility] [address] [facility] [place] [id number] Angel Stacy MD [address] [place] [address] [place] [address] Health Maintenance Due Date Last Done Comments HIV Screening 08/11/2002 Hepatitis C Screening 08/11/2005 DTaP,Tdap,and Td Vaccines (1 - Tdap) 08/11/2006 COVID-19 Vaccine (1 - 2022-24 season) 2022 GARDASIL-HPV IMMUNIZATION SERIES (2 - 3-dose SCDM series) 10/17/2022 09/19/2022 Hepatitis B (2 of 3 - 19+ 3-dose series) 10/17/2022 09/19/2022 Depression Screening 05/24/2023 05/23/2022 Diabetes Screening 06/25/2026 06/26/2023, 0 06/26/2023, 06/22/2023, Additional history exists Influenza Vaccine (FLU shot) Completed 10/17/2022 Pneumococcal Vaccine: Pediatrics (0 to 5 Years) and At-Risk Patients (6 to 64 Years) Aged Out 10/17/2022 No longer eligible based on patient's age to complete this topic MENINGOCOCCAL (MENACTRA/MENVEO) Aged Out No longer eligible based on patient's age to complete this topic documented as of this encounter Medical Devices Not on filedocumented as of this encounter Care Teams Locks Tender Relationship Specialty Start Date End Date June, Kale Frances MD [address] [place] [address] PCP - General Family Medicine 05/23/22 documented as of this encounter
--- OUTSIDE RECORDS SUMMARY | 2023-10-04 20:28 | External Medical Summary | Summary of Care ---
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 * Evaluate & Treat - Unlimited Visits (Within 30 days (routine)) - Pending Review Specialty Diagnoses / Procedures Referred By Contaide t Referred To Contact Hematology/Oncology / Hematology Oncology Diagnoses Sickle cell disease without crisis (HCC) Angel Stacy MD 27 [facility] [address] [place] [address] Referral ID Status Reason Start Date Expiration Date Visits Requested Visits Authorized [id number] Pending Review Specialty Services Required 05/22/[phone] Encounter Details Date Type Department Care Team (Late st Contact Info) Description 06/22/2023 9:45 AM EDT Office Visit Hematology/Oncology [facility] [address] [place] [phone] Sb Sainz MD 200 [place] [address] Sickle cell trait (HCC)*; 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 30 Tablet 2 3 Active Additional Information Patient not taking.Reported on 12/18/2022 predniSONE 10 MG Oral Tablet (Deltasone) Take 5 tabs for 2 days, 4 tabs for 2 days, 3 tabs for 2 days, 2 tabs for 2 days 1 tab for 2 days 30 Tablet 0 3 Active Additional Information Patient not taking.Reported on 12/18/2022 Benzonatate 100 MG Oral Capsule (Tessalon Perles) Take 1 Capsule by mouth 3 times a day as needed for Cough. Do not cut, crush, or chew. 50 Capsule 1 3 Active Additional Information Patient not taking.Reported on 12/18/2022 Gabapentin 100 MG Oral Capsule (Neurontin) TAKE 2 CAPSULES ORALLY AT BEDTIME. MAY TAKE ADDITION 100 MG TWICE A DAY NEEDED FOR ANXIETY/PAIN 0 3 Active Gabapentin 300 MG Oral Capsule (Neurontin) TAKE 1 CAPSULE ORALLY AT BEDTIME TAKE WITH 200 SL=944 MG 0 3 Active Sertraline HCl 25 MG Oral Tablet (Zoloft) Take 1 Tablet by mouth in the morning. 0 Active Biktarvy 30-120-15 MG Oral Tablet (Bictegravir-Emtr icitab-Tenofov)In dications:HIV disease (HCC) Take 1 Tablet by mouth in the morning. 30 Tablet 2 3 06/22/19 24 Discontinued(Me dication List Clean Up) rOPINIRole HCl 0.5 MG Oral Tablet (Requip)Indicatio ns:Restless legs syndrome Take 1 Tablet by mouth at bedtime. 30 Tablet 2 3 06/22/19 24 Discontinued ProAir HFA 108 (90 Base) MCG/ACT Inhalation Aerosol SolutionIndicatio ns:Sorethroat,Bro nchitis, complicated Inhale 2 Puffs by mouth every 4 hours as needed for Wheezing. 18 g 1 3 06/22/19 24 Discontinued(Me dication List Clean Up) Abilify Maintena 400 MG Intramuscular Prefilled Syringe (ARIPiprazole ER) Inject 400 mg into a large muscle Every Month. 0 06/22/19 24 Discontinued(Me dication List Clean Up) Pseudoephedrine HCl 60 MG Oral Tablet (Sudafed) Take 1 Tablet by mouth every 6 hours as needed for Other (priapism). 30 Tablet 2 4 06/22/19 24 Discontinued(Me dication List Clean Up) documented as of this encounter (statuses as of 06/22/2023) Active Problems Problem Noted Date Diagnosed Date Food insecurity 06/12/2022 Overview: Per [facility] Protocol documented as of this encounter (statuses as of 06/22/2023) Social History Tobacco Use Types Packs/Day Years Used Date Smoking Tobacco: Never Smokeless Tobacco: Never Tobacco Cessation:Counseling Given: Not Answered Alcohol Use Standard Drinks/Week Comments Not Currently [...] Sign Reading Time Taken Comments Blood Pressure 121/78 06/22/2023 9:29 AM EDT Pulse 62 06/22/2023 9:29 AM EDT Temperature 36.1 C (96.9 F) 06/22/2023 9:29 AM ED T Respiratory Rate - - Oxygen Saturation 96% 06/22/2023 9:29 AM EDT Inhaled Oxygen Concentration - - Weight 86.3 kg (190 lb 3.2 oz) 06/22/2023 9:29 A M EDT Height 167.6 cm (5' 6") 06/22/2023 9:29 AM EDT Body Mass Index 30.7 06/22/2023 9:29 AM EDT documented in this encounter Progress Notes * Sb Sainz MD - 06/22/2023 9:45 AM EDT Hematology/Oncology Outpatient Consult Note Apolinar Reich [address] [facility] [address] Artur Olgu[place], [place] [address] BRETT MC MR # [id number] :1985 37 years old male, REASON FOR CONSULTATION: Consultation for Brett Mc requested by Dr. Angel Stacy for evaluation and discussion of treatment options for Positive sickle cell anemia trait, history of recurrent priapism Date of consultation:06/22/2023 DIAGNOSIS: - -sickle cell trait diagnosed in childhood. - HIV positive. He follows up with Dr. Simone Gamez ([facility] ) Priapism, had frequent ER visits earlier, lately less frequent, last episode was somewhere in January of 2023. He says that he has less frequent priapism after adjusting his psych medication. CURRENT TREATMENT: Currently he has not on specific treatment for the underlying hemoglobinopathy. PREVIOUS TREATMENT: -no blood transfusion in the past. DIAGNOSTIC WORKUP: He says that he was diagnosed with sickle cell trait in childhood, I do not have those records for the review. Recently he had a blood workup which showed sickling preparation positive suggest presence of sickle cell in the peripheral blood. No blood transfusion in the past. No joint pain crisis. OTHER IMPORTANT HISTORY: - Schizophrenia. He follows up with Kassie Norton PA-C,([facility] ) INTERVAL HISTORY: He has come the clinic for the initial evaluation, he came to clinic by himself Currently lives with his 2 brothers. No cardiac or pulmonary symptom no nausea no vomiting, no joint pain, no skin rash, no skin ulceration, no smoking, has underlying HIV, HIV viral marker negative. He is on active treatment for that. No new GI symptoms, no bleeding from the sites, stable weight around 190 lb. Ambulates well. Last episode of priapism was several months back. I reviewed [facility] record, It was somewhere in January 2023 REVIEW OF SYSTEMS: GENERAL: No recent change in weight, no weakness, no fatigue, no fever, sweats or chills. SKIN: No skin rash, no bruising. HEAD: No new headache, no dizziness. EYES: No recent change in the vision, no diplopia, EARS: No earache no tinnitus, NOSE: No epistaxis, No nasal discharge or stuffiness, MOUTH: No sores, no dysphagia, no hoarseness of voice, NECK: No lumps, No swelling in thyroid area. No stiffness. PULMONARY: No cough, No shortness of breath, no hemoptysis, no chest pain, No wheezing. CARDIOVASCULAR: No anginal chest pain, no PND, no orthopnea. No palpitation, no leg edema. No syncope. GASTROINTESTINAL: No abdominal pain, no nausea or vomiting. No diarrhea, No constipation. No blood in stool or black tarry stools. No abdominal distention. UROLOGIC: No burning urination. No hematuria. MUSCULOSKELETAL: No joint pain, No joint swelling, no muscle weakness. HEMATOLOGIC: No anemia, no bleeding disorder, No bruising. NEUROLOGIC: No seizures, no focal weakness, no speech difficulty, No memory disturbances. No tingling or numbness of the extremities. No past medical history on file. No past surgical history on file. Current Outpatient Medications Medication Sig Dispense Refill Biktarvy 30-120-15 MG Oral Tablet (Auauigzhdsx-Peycqypveu-Smtgtvx) Take 1 Tablet by mouth in the morning. 30 Tablet 2 Mirtazapine 15 MG Oral Tablet (Remeron) Take 1 Tablet by mouth at bedtime. (Patient not taking: Reported on 12/18/2022) 30 Tablet 2 rOPINIRole HCl 0.5 MG Oral Tablet (Requip) Take 1 Tablet by mouth at bedtime. (Patient not taking: Reported on 12/18/2022) 30 Tablet 2 ProAir HFA 108 (90 Base) MCG/ACT Inhalation Aerosol Solution Inhale 2 Puffs by mouth every 4 hours as needed for Wheezing. 18 g 1 predniSONE 10 MG Oral Tablet (Deltasone) Take 5 tabs for 2 days, 4 tabs for 2 days, 3 tabs for 2 days, 2 tabs for 2 days 1 tab for 2 days (Patient not taking: Reported on 12/18/2022) 30 Tablet 0 Benzonatate 100 MG Oral Capsule (Tessalon Perles) Take 1 Capsule by mouth 3 times a day as needed for Cough. Do not cut, crush, or chew. (Patient not taking: Reported on 12/18/2022) 50 Capsule 1 Gabapentin 100 MG Oral Capsule (Neurontin) TAKE 2 CAPSULES ORALLY AT BEDTIME. MAY TAKE ADDITION 100MG TWICE A DAY NEEDED FOR ANXIETY/PAIN Gabapentin 300 MG Oral Capsule (Neurontin) TAKE 1 CAPSULE ORALLY AT BEDTIME TAKE WITH 200 OZ=774 MG Abilify Maintena 400 MG Intramuscular Prefilled Syringe (ARIPiprazole ER) Inject 400 mg into a large muscle Every Month. Pseudoephedrine HCl 60 MG Oral Tablet (Sudafed) Take 1 Tablet by mouth every 6 hours as needed for Other (priapism). 30 Tablet 2 No current facility-administered medications for this visit. No family history on file. Social History Socioeconomic History Marital status: Single Spouse name: Not on file Number of children: Not on file Years of education: Not on file Highest education level: Not on file Occupational History Not on file Tobacco Use Smoking status: Never Smokeless tobacco: Never Vaping Use Vaping Use: Every day Substance and Sexual Activity Alcohol use: Not Currently Drug use: Not Currently Types: Methamphetamines, Marijuana Sexual activity: Not on file Other Topics Concern Not on file Social History Narrative Not on file Social Determinants of Health Financial Resource Strain: Not on file Food Insecurity: Food Insecurity Present (05/23/2022) Hunger Vital Sign Worried About Running Out of Food in the Last Year: Often true Ran Out of Food in the Last Year: Often true Transportation Needs: Not on file Physical Activity: Not on file Stress: Not on file Social Connections: Not on file Intimate Partner Violence: Not on file Housing Stability: Not on file On Exam: BP 121/78 (BP Site: Left Arm, BP Position: Sitting, BP Cuff Size: Regular) | Pulse 62 | Temp 36.1 C (96.9 F) (Tympanic) | Ht 1.676 m (5' 6") | Wt 86.3 kg (190 lb 3.2 oz) | SpO2 96% | BMI 30.70 kg/m | BSA 2 m Constitutional: Patient is alert, cooperative and oriented x 3. Well built man, Patient is in no acute distress. HEENT:No icterus, no pallor, Throat and pharynx normal. Sinuses are non-tender. Neck: Supple and without lymphadenopathy or masses. No JVD. No Palpable supraclavicular lymph nodes. Lungs: Clear to auscultation. Bilateral symmetric air entry. No wheezing or rhonchi. Cardiovascular: Normal heart sounds, no murmurs.Regular rate and rhythm. Abdomen: soft, nontender, no hepatomegaly, no splenomegaly. Bowel sounds are normal. Neurological: No gross focal neurological deficit; walks with a normal gait. Extremities: No finger clubbing, No cyanosis. No leg edema. Skin:: No skin rash. SPINE: No spinal or paraspinal tenderness. LABS: -sickle cell screening --> positive (05/22/2023). Blood workup done on 01/04/2023 at [facility]: -WBC 4400, H&H of 14.9/41.6, MCV 79 Platelet count of 201,000 -normal differential count -BUN/Creat: 15/0.8, normal LFT. TSH 0.57. IMAGING: CT scan of the head, neck angiogram on 05/09/2022 for evaluation of stroke-like symptoms rapid unremarkable. ASSESSMENT AND PLAN: 37-year-old male, A case of sickle cell trait diagnosed in the childhood, overall does not have any symptoms of sickle cell anemia with joint pain, skin ulcerations or any other problem but he had frequent episodes ofpriapism, he was seen at [facility] on few occasions, I reviewed hospital records, last episode somewhere in January 2023. He says that after adjusting his psych medications, he does not get frequent episodes of priapism Overall he is doing well. Currently he is on Anti- HIV medications, as per the patient viral load is negative. He would slightly abnormal liver function test about a year back, I would like to check comprehensive metabolic panel. Will also check LDH, reticulocyte count, hemoglobin electrophoresis. Currently he has not on folic acid supplements. If he has reticulocytosis or elevated LDH, will consider folic acid treatment Overall sickle cell trait is not likely to cause any kind of hematological problem. Will continue to observe at this time He will continue follow-up with his primary-care provider Regarding priapism, he will continue to have follow-up with urologist Will see him back in the clinic as needed. Thanks for the consultation. Dr. Sb Sainz Hem/Onc (This note was completed using the dictation program Fluency Direct. As such, there may be misspellings word substitutions, or other variations that should not change the essence of the clinical content of this encounter note. If there is need for further clarification, please direct questions to the provider listed above.) documented in this encounter Nursing Notes * Maria Esther Tobin MED ASSIST - 06/22/2023 9:33 AM EDT Patient identifed by name and birthdate Do you have any concerns about pain management for today's visit? No Living Will or Advance Directive for Health Care as noted on the problem list. [facility] is a way you can talk to your provider on line through e-mail. Would you like to sign up? I can activate it for you? ALREADY ACTIVE Filed Vitals: 06/22/23 0929 BP: 121/78 Pulse: 62 Temp: 36.1 C (96.9 F) TempSrc: Tympanic SpO2: 96% Weight: 86.3 kg (190 lb 3.2 oz) Height: 1.676 m (5' 6") Patient was instructed to not get up on the exam table/exam chair until directed and assisted by their provider; patient is to remain seated in the chair/ wheelchair/ exam table/ exam chair for fall prevention and safety reasons. Patient is aware to have assistance to step down off exam table/exam chair with personnel. Patient voiced full comprehension of instructions. documented in this encounter Plan of Treatment Upcoming Encounters Date Type Department Care Team (Late st Contact Info) Description 09/11/2023 8:15 AM EDT Office Visit Urology, [address] [place] [address] Angel Stacy MD [facility] [address] [place] [address] Pending Results Name Type Priority Associated Diagnoses Date /Time LD Lab Routine Sickle cell trait ([facility]) 06/22/2023 10:09 AM EDT HAPTOGLOBIN Lab Routine Sickle cell trait ([facility]) 06/22/2023 10:09 AM EDT RETICULOCYTE PANEL Lab Routine Sickle cell trait ([facility]) 06/22/2023 10:09 AM EDT HEMOGLOBINOPATHY EVALUATION Lab Routine Sickle cell trait ([facility]) 06/22/2023 10:09 AM EDT FOLIC ACID Lab Routine Sickle cell trait ([facility]) 06/22/2023 10:09 AM EDT Health Maintenance Due Date Last Done Comments HIV Screening 08/11/2002 Hepatitis C Screening 08/11/2005 DTaP,Tdap,and Td Vaccines (1 - Tdap) 08/11/2006 COVID-19 Vaccine (1 - season) 2022 GARDASIL-HPV IMMUNIZATION SERIES (2 - 3-dose SCDM series) 10/17/2022 09/19/2022 Hepatitis B (2 of 3 - 19+ 3-dose series) 10/17/2022 09/19/2022 Depression Screening 05/24/2023 05/23/2022 Diabetes Screening 06/21/2026 06/22/2023, 0 06/28/2022, 06/28/2022, Additional history exists Influenza Vaccine (FLU shot) [...] Not on filedocumented as of this encounter Procedures Procedure Name Priority Date/Time Associated Diagnosis Comments COMPREHENSIVE METABOLIC PANEL STAT 06/22/2023 10:09 AM EDT Sickle cell trait (HCC) documented in this encounter Results * (ABNORMAL) COMPREHENSIVE METABOLIC PANEL (06/22/2023 10:09 AM EDT) BUN 15 6 - 20 mg/dL 06/22/2023 10:55 AM [facility] 56 Creatinine 1.0 0.6 - 1.2 mg/dL 06/22/2023 10:55 AM [facility] 56 Estimated Glomerular Filtration Rate >90 >=60 mL/min 06/22/2023 10:55 AM [facility] 56 Comment:eGFR is calculated b ased on the CKD-EPI 2020 equation Sodium 140 135 - 146 mmol/L 06/22/2023 10:55 AM [facility] 56 Potassium 3.7 3.5 - 5.1 mmol/L 06/22/2023 10:55 AM [facility] 56- Chloride 104 98 - 107 mmol/L 06/22/2023 10:55 AM [facility] 56 CO2 25 22 - 32 mmol/L 06/22/2023 10:55 AM [facility] 56 Anion Gap 11 7 - 15 mmol/L 06/22/2023 10:55 AM [facility] 56 Glucose 106 70 - 120 mg/dL 06/22/2023 10:55 AM [facility] 56- Albumin 4.5 3.8 - 5.0 g/dL 06/22/2023 10:55 AM [facility] 56 AST 40 10 - 50 U/L 06/22/2023 10:55 AM [facility] 56- Alkaline Phosphatase 101 35 - 130 U/L 06/22/2023 10:55 AM [facility] 56- Bilirubin, Total 1.1 <=1.2 mg/dL 06/22/2023 10:55 AM [facility] 56- Calcium 9.7 8.4 - 10.2 mg/dL 06/22/2023 10:55 AM [facility] 56- Protein 7.7 6.0 - 8.3 g/dL 06/22/2023 10:55 AM [facility] 56- ALT 57(H) 10 - 50 U/L 06/22/2023 10:55 AM [facility] 56-02 Blood Venous blood specimen / Unknown Venipuncture / Unknown 06/22/2023 10:09 AM EDT 06/22/2023 10:09 AM EDT Sb Sainz MD LAB BLOOD ORDERABLES [facility]-[address] [place] [address] documented in this encounter Visit Diagnoses Diagnosis Sickle cell trait (HCC)- Primary Sickle-cell trait 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
--- OUTSIDE RECORDS SUMMARY | 2023-10-04 20:28 | External Medical Summary ---
Author Name Unknown Address Unknown Organization [id number]:[facility] [place] [address] [facility] [address] Laboratory Report Ordering Provider Test Date Status TRACY BLUE 06/26/2023 10:56:00 Final Observation Date Value Abnormality Reference (Units ) Status TSH 06/26/2023 10:56:00 2.03 0.27-4.20 (uIU/mL) Final Performing Location LAB[facility]ATORY C - [address] [facility] [address]
--- OUTSIDE RECORDS SUMMARY | 2023-10-04 20:28 | External Medical Summary ---
Author Name Unknown Address Unknown Organization [id number]:[facility]ATORY [facility] - [address] [facility] [place] [address] Laboratory Report Ordering Provider Test Date Status TRACY BLUE 06/26/2023 10:56:00 Final Observation Date Value Abnormality Reference (Units ) Status BUN 06/26/2023 10:56:00 14 6-20 (mg/dL) Final Creatinine 06/26/2023 10:56:00 1.0 0.6-1.2 (mg/dL) Final Glomerular filtration rate/1.73 sq M.predicted [Volume Rate/Area] in Serum, Plasma or Blood by Creatinine-based formula (CKD-EPI) 06/26/2023 10:56:00 >90 >=60 (mL/min) Final eGFR is calculated based on the CKD-EPI 2020 equation Sodium 06/26/2023 10:56:00 140 135-146 (m mol/L) Final Potassium 06/26/2023 10:56:00 4.1 3.5-5.1 (m mol/L) Final Cl 06/26/2023 10:56:00 106 98-107 (mm ol/L) Final CO2 06/26/2023 10:56:00 23 22-32 (mmo l/L) Final Anion gap 06/26/2023 10:56:00 11 7-15 (mmol /L) Final Glucose 06/26/2023 10:56:00 90 70-120 (mg /dL) Final Albumin 06/26/2023 10:56:00 4.7 3.8-5.0 (g /dL) Final AST (Aspartate aminotransferase) 06/26/2023 10:56:00 40 10-50 (U/L) Final Result may be falsely elevat ed due to hemolysis. Alk Phos 06/26/2023 10:56:00 113 35-130 (U/ L) Final Bilirubin, Total 06/26/2023 10:56:00 1.1 <=1 .2 (mg/dL) Final Calcium 06/26/2023 10:56:00 9.7 8.4-10.2 ( mg/dL) Final Protein 06/26/2023 10:56:00 7.2 6.0-8.3 (g /dL) Final ALT (Alanine aminotransferase) 06/26/2023 10:56:00 68 Above high normal 10-50 (U/L) Final Performing Location LABORATORY [facility] - [address] [facility] [address]
--- OUTSIDE RECORDS SUMMARY | 2023-10-04 20:28 | External Medical Summary ---
Author Name Unknown Address Unknown Organization [id number]:[facility] [place] [address] [place] [address] Laboratory Report Ordering Provider Test Date Status TRACY BLUE 06/26/2023 10:56:00 Final Observation Date Value Abnormality Reference (Units ) Status HbA1C 06/26/2023 10:56:00 5.1 4.0-5.6 (% ) Final The use of HbA1c to monitor glycemic status is based on normal hemoglobin and HbA composition. This test should not be used in patients with abnormal hemoglobin that affects the half life of the red blood cell or the in vivo glycation rates. Glucose, estimated average 06/26/2023 10:56:00 100 <126 (mg/dL) Final Performing Location LABORATORY C - [address] [place] [address]
--- OUTSIDE RECORDS SUMMARY | 2023-10-04 20:28 | External Medical Summary | Summary of Care ---
Author Name Unknown Organization [facility] Address [address] [place] [address] Phone [phone] Care Team Providers Care Hand Candy Cutter Name Role Phone Kale Vazquez MD Primary Care Provider [phone] Reason for Visit * Reason Onset Date Comments Test Results 06/25/2023 Encounter Details Date Type Department Care Team (Late st Contact Info) Description 06/25/2023 Telephone Hematology/Oncology Treatment, [place] [address] [place] [address] Sb Sainz MD [address] [place] [address] Test Results Allergies Active Allergy Reactions Criticality Noted Date Comments Quetiapine 05/23/2022 Trazodone 05/23/2022 documented as of this encounter (statuses as of 06/25/2023) Medications Medication Sig Dispensed Refills Start Date [...] CAPSULE ORALLY AT BEDTIME TAKE WITH 200 EV=162 MG 12/09/2022 Active Sertraline HCl 25 MG Oral Tablet (Zoloft) Take 1 Tablet by mouth in the morning. Active documented as of this encounter (statuses as of 06/25/2023) Active Problems Problem Noted Date Diagnosed Date Food insecurity 06/12/2022 Overview: Per [facility] Protocol documented as of this encounter (statuses as of 06/25/2023) Social History Tobacco Use Types Packs/Day Years [...] to start folic acid 1 mg every day.(residential) documented in this encounter Plan of Treatment Upcoming Encounters Date Type Department Care Team (Late st Contact Info) Description 09/11/2023 8:15 AM EDT Office Visit Urology, [facility] [address] [facility] [place] [address] Angel Stacy MD 27 [facility] [address] [place] [address] Health Maintenance Due Date Last Done Comments HIV Screening 08/11/2002 Hepatitis C Screening 08/11/2005 DTaP,Tdap,and Td Vaccines (1 - Tdap) 08/11/2006 COVID-19 Vaccine ( - 2022- season) 2022 GARDASIL-HPV IMMUNIZATION SERIES (2 - [...] filedocumented as of this encounter Care Teams Hand Candy Cutter Relationship Specialty Start Date End Date June, Kale Frances MD [address] [place] [address] PCP - General Family Medicine 05/23/22 documented as of this encounter
--- OUTSIDE RECORDS SUMMARY | 2023-10-04 20:28 | External Medical Summary ---
Author Name Unknown Address Unknown Organization [id number]:[facility] [place] [address] [place] [address] Laboratory Report Ordering Provider Test Date Status CALVIN ALEJO 06/22/2023 10:09:03 Final Observation Date Value Abnormality Reference (Units ) Status LDH 06/22/2023 10:09:03 235 <=250 (U/L ) Final Performing Location [facility]ORY [facility] - [address] [place] [address]
[2023-10-04] MEDS ORDERED: KETOROLAC TROMETHAMINE 15 MG/ML VIAL IV PRN (22:00)
--- NOTE | 2023-10-04 22:12 | Electrocardiogram Report ---
Test Reason : Blood Pressure : */* mmHG Vent. Rate : 90 BPM Atrial Rate : 90 BPM P-R Int : 166 ms QRS Dur : 88 ms QT Int : 362 ms P-R-T Axes : 37 38 16 degrees QTcB Int : 442 ms Normal sinus rhythm Nonspecific T wave abnormality Abnormal ECG When compared with ECG of 09-May-2022 10:50, No significant change was found Confirmed by Matt Chambers ([id number]) on 10/04/2023 10:12:29 PM Referred By: REFERRED SELF Confirmed By: Matt Chambers
[2023-10-04] MEDS: hydrOXYzine HCl 10 MG TAB PO SCH (22:13)
[2023-10-04] MEDS: GABAPENTIN 100 MG CAP PO SCH (22:14)
[2023-10-04] MEDS: PRAZOSIN HCL 1 MG CAP PO SCH (22:14)
[2023-10-04] MEDS: LIDOCAINE 5% 1 PATCH TD SCH (22:14)
[2023-10-04 23:44] LABS: ANTI-Xa, UFH(UnfractionatedHep 0.64 IU/ml (0.3-0.7)
[2023-10-05 04:09] LABS: Basophils # (auto) 0.02 K/uL (0.00-0.20); Basophils % (auto) 0.5 %; Eosinophils % (auto) 5.2 %; Hematocrit (blood only) 40.6 % (42.0-52.0); Hemoglobin 14.2 g/dl (14.0-18.0); Lymphocytes # (auto) 1.17 K/uL (1.20-3.40); Lymphocytes % (auto) 30.2 %; Mean Corpuscular Hemoglobin 27.8 pg (25.0-34.0); Mean Corpuscular Volume 79.5 fL (80.0-100.0); Monocytes # (auto) 0.33 K/uL (0.11-0.59); Monocytes % (auto) 8.5 %; Neutrophils # (auto) 2.16 K/uL (1.40-6.50); Neutrophils % (auto) 55.6 %; Platelet Count 176 K/uL (130-400); RDW Coefficient of Variation 12.8 % (11.5-14.5); RDW Standard Deviation 36.6 fL (36.4-46.3); Red Blood Count 5.11 M/uL (4.70-6.10); White Blood Count 3.88 K/ul (4.8-10.8)
[2023-10-05 04:33] LABS: ANTI-Xa, UFH(UnfractionatedHep 0.59 IU/ml (0.3-0.7)
[2023-10-05 05:15] LABS: Albumin Globulin Ratio 1.3 (0.9-2); Albumin Level 4.1 gm/dl (3.4-5.0); Bilirubin,Total 0.9 mg/dl (0.2-1.0); Creatinine Clr Calc Pharmacy 101.1 ml/min; Est GFR (African American) 111.7 ml/min; Est GFR (Non-African American) 96.4 ml/min; Globulin 3.2 gm/dl (2.5-4.0); Potassium 3.5 mmol/L (3.5-5.1); Total Protein 7.3 gm/dl (6.0-8.3)
--- NOTE | 2023-10-05 07:45 | Hospitalist Progress Note ---
Date of Service October 05, 2023 Assessment & Plan (1) Acute right-sided thoracic back pain: (2) Embolism, pulmonary with infarction: (3) Schizoaffective disorder: (4) HIV (human immunodeficiency virus infection): Plan This is a 38 yr old M who has a significant PMH of sickle cell trait, schizoaffective disorder and HIV who presents to ED 2/2 chest pain x 2 days and was diagnosed with a RUL PE. Acute right upper lobe pulmonary embolism RUL pulmonary infarct Acute Likely secondary to known sickle cell trait Patient on med/tele IV heparin gtt started; will work towards stopping Heparin gtt tmw 10/05 and starting Eliquis Chest CT: Acute right upper lobe pulmonary emboli, peripheral consolidation within the right upper lobe favors a pulmonary infarct, Small right and trace left pleural effusions. Trace pericardial effusion. ECHO results indicate: EF 55-60%,. mild concentric LVH, LV wall motion normal, No signs of AR/MR/TR or pericardial effusion he will need f/u with hematology in setting of sickle cell trait (follows with Dr. Sainz historically yearly) lidocaine patch, Has as needed IV Toradol and IV Tylenol. Has not utilized any dosing for pain over past 24 hours since admission. Will DC Toradol and con tinue with IV Tylenol as needed Confirmed Eliquis is $0 through pharmacy. Will order Eliquis 10 mg twice daily x 13 doses starting on 10/06 followed by Eliquis 5 mg p.o. 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 Kale Vazquez Code Status: FULL CODE Dispo: admit to [employer] A total of 52 minutes was spent coordinating, documenting, and providing care for this patient excluding time spent in the performance of separately billed s ervices. This included personally viewing all current laboratories and imaging studies, medication reconciliation, outpatient chart review, and discussion with specialists. Admission and Anticipated Discharge Date Admission Date: October 04, 2023 Supervising Physician Co-Signing Physician Notes Attending addendum: The patient was seen and examined in medical telemetry unit He has been complaining of chest pain with deep breathing and shortness of breath with exertion and now noted to have acute pulmonary embolism Feeling better but he still has minimal pain with cough and deep breathing On examination Lying in bed without any acute distress Hemodynamically stable with unremarkable examination of the chest No leg swelling and no calf tenderness His labs and imaging studies reviewed Has pulmonary embolism and has been on intravenous heparin Chest pain secondary to pleurisy Agree with assessment plan as outlined above by Judith NUGENT and take the full responsibility of the patient care Total time in documentation, discussion with the patient and reviewing took approximately [address] Chris Calloway Subjective Patient laying in his hospital bed with no apparent distress He denies headache, dizziness, chest pain, N/V/D. He reports continued pressure in his chest with deep breathing He is in a pleasant mood Plan to keep through the weekend and DC 10/05 in the afternoon See A/P for further details. Review of Systems Review of Systems: Neuro: (-) Falls, trauma, slurred speech HEENT: (-) ASHBY, dizziness, dysphagia, visual or auditory changes CV: (-) CP, palpitations, swelling Resp: (+) SOB GI: (-) appetite changes, N/V/D, bowel changes : (-) urinary changes Skin: (-) rashes Psych: (-) anxiety, depression Physical Exam Physical Exam: Neuro: AAOx4, PERRLA, no aphagia, memory changes, CNII-XII grossly intact HEENT: head normocephalic, moist mucus membranes CV: S1/S2, (-) M/G/R, (-) edema, cap refill < 3 seconds Resp: Lungs decreased. on RA. visibly difficult to take a deep breath GI: Abdomen S/NT/ND, Ax4 bowel sounds, (-) CVA tenderness Musculoskeletal: 5/5 B/L UE strength, 5/5 B/L LE strength. No gait disturbance Skin: (-) rashes , (-) erythema. Psych: euthymic mood Results & Data Results & Data Vital Signs (Past 12 Hours) Vital Signs Temp Pulse Pulse Resp BP Pulse Ox O2 Del Method 10/05/23 07:24 36.3 C L 72 18 131/86 94 Room Air 10/05/23 07:20 76 10/05/23 03:49 36.6 C 77 18 121/72 93 Room Air 10/05/23 00:00 85 10/04/23 23:36 36.8 C 64 18 111/73 93 Room Air Laboratory Results Short CBC 10/04/23 10/05/23 Range/Units 13:14 03:55 WBC 5.31 3.88 L (4.8-10.8) K/ul Hgb 15.6 14.2 (14.0-18.0) g/dl Hct 43.2 40.6 L (42.0-52.0) % Plt Count 190 176 (130-400) K/uL BMP 10/04/23 10/05/23 13:14 03:55 Sodium 137 136 Potassium 3.7 3.5 Chloride 102 104 Carbon Dioxide 25 25 BUN 16 21 Creatinine 1.04 1.00 Glucose 98 103 H Calcium 9.8 9.0 Liver Function 10/04/23 10/05/23 Range/Units 13:14 03:55 Total Bilirubin 1.5 H 0.9 D (0.2-1.0) mg/dl AST 27 26 (13-39) U/L ALT 46 40 (7-52) U/L Alkaline Phosphatase 109 H 89 (34-104) U/L Albumin 4.6 4.1 (3.4-5.0) gm/dl Urine 10/04/23 Range/Units 16:50 Urine Color Yellow Urine Appearance Clear (Clear) Urine pH 6.0 (4.5-7.5) Ur Specific [place] > 1.045 H (1.000-1.030) Urine Protein Negative (Negative) Urine Glucose (UA) Negative (Negative) (3) Schizoaffective disorder Schizoaffective disorder type: depressive Qualified Code(s): F25.1 - Schizoaffective disorder, depressive type (4) HIV (human immunodeficiency virus infection) HIV symptom status: unspecified Qualified Code(s): B20 - Human immunodeficiency virus [HIV] disease
[2023-10-05] MEDS: SERTRALINE HCL 50 MG TABLET PO SCH (07:47)
[2023-10-06 06:25] LABS: Hematocrit (blood only) 39.9 % (42.0-52.0); Mean Corpuscular Hemoglobin 27.9 pg (25.0-34.0); Mean Corpuscular Hgb Conc 35.1 g/dL (32.0-36.0); Mean Corpuscular Volume 79.5 fL (80.0-100.0); Mean Platelet Volume 9.1 fL (9.4-12.4); Platelet Count 188 K/uL (130-400); RDW Coefficient of Variation 12.7 % (11.5-14.5); RDW Standard Deviation 36.1 fL (36.4-46.3); Red Blood Count 5.02 M/uL (4.70-6.10); White Blood Count 3.63 K/ul (4.8-10.8)
[2023-10-06 06:38] LABS: BUN Creatinine Ratio 17.2 (10-20); Calcium 9.2 mg/dl (8.6-10.3); Creatinine Clr Calc Pharmacy 116.5 ml/min; Est GFR (African American) 128.7 ml/min; Potassium 3.6 mmol/L (3.5-5.1)
[2023-10-06 06:46] LABS: ANTI-Xa, UFH(UnfractionatedHep 0.51 IU/ml (0.3-0.7)
[2023-10-06 09:16] VITALS: RESP 16
--- NOTE | 2023-10-06 11:22 | Hospitalist Progress Note ---
Date of Service October 06, 2023 Assessment & Plan (1) Acute right-sided thoracic back pain: (2) Embolism, pulmonary with infarction: (3) Schizoaffective disorder: (4) HIV (human immunodeficiency virus infection): Plan This is a 38 yr old M who has a significant PMH of sickle cell trait, schizoaffective disorder and HIV who presents to ED 2/2 chest pain x 2 days and was diagnosed with a RUL PE. Acute right upper lobe pulmonary embolism RUL pulmonary infarct Acute Likely secondary to known sickle cell trait Patient on med/tele IV heparin gtt started; will work towards stopping Heparin gtt tmw 10/05 and starting Eliquis Chest CT: Acute right upper lobe pulmonary emboli, peripheral consolidation within the right upper lobe favors a pulmonary infarct, Small right and trace left pleural effusions. Trace pericardial effusion. ECHO results indicate: EF 55-60%,. mild concentric LVH, LV wall motion normal, No signs of AR/MR/TR or pericardial effusion he will need f/u with hematology in setting of sickle cell trait (follows with Dr. Sainz historically yearly) lidocaine patch, Has as needed IV Toradol and IV Tylenol. Has not utilized any dosing for pain over past 24 hours since admission. Will DC Toradol and con tinue with IV Tylenol as needed Confirmed Eliquis is $0 through pharmacy. Will order Eliquis 10 mg twice daily x 13 doses starting on 10/06 followed by Eliquis 5 mg p.o. 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 Kale Vazquez Code Status: FULL CODE Dispo: admit to med tele Admission and Anticipated Discharge Date Admission Date: October 04, 2023 Subjective 10/06/2023 The patient was seen and examined in medical telemetry unit He has been feeling much better denies any more chest pain and/or palpitation Has been saturating normally on room air Has had 2 steps and he did not require any oxygen He will be discharged home this afternoon Review of Systems Review of Systems: All systems reviewed and are unremarkable except as noted below Physical Exam Physical Exam: Neuro: AAOx4, PERRLA, no aphagia, memory changes, CNII-XII grossly intact HEENT: head normocephalic, moist mucus membranes CV: S1/S2, (-) M/G/R, (-) edema, Resp: Clear to auscultate bilaterally GI: Abdomen S/NT/ND, Ax4 bowel sounds, (-) CVA tenderness Musculoskeletal: 5/5 B/L UE strength, 5/5 B/L LE strength. No gait disturbance Skin: (-) rashes , (-) erythema. Psych: euthymic mood CNSalert, awake and oriented x 3 and no focal sensory and motor deficit appreciated Results & Data Results & Data Vital Signs (Past 12 Hours) Vital Signs Temp Pulse Pulse Pulse Pulse Resp Resp 10/06/23 09:14 76 73 16 10/06/23 09:11 10/06/23 07:26 36.7 C 76 18 10/06/23 07:26 83 10/06/23 04:16 36.6 C 77 20 10/06/23 00:13 36.8 C 70 20 10/06/23 00:00 70 Resp BP Pulse Ox Pulse Ox Pulse Ox O2 Del Method 10/06/23 09:14 16 93 97 10/06/23 09:11 Room Air 10/06/23 07:26 116/72 95 Room Air 10/06/23 07:26 10/06/23 04:16 106/66 93 Room Air 10/06/23 00:13 122/72 93 Room Air 10/06/23 00:00 Laboratory Results Short CBC 10/06/23 Range/Units 05:56 WBC 3.63 L (4.8-10.8) K/ul Hgb 14.0 (14.0-18.0) g/dl Hct 39.9 L (42.0-52.0) % Plt Count 188 (130-400) K/uL BMP 10/06/23 05:56 Sodium 137 Potassium 3.6 Chloride 106 Carbon Dioxide 23 BUN 15 Creatinine 0.87 Glucose 103 H Calcium 9.2 Medications Administered Current Inpatient Medications Gabapentin (Gabapentin 100 Mg Cap) 200 mg PO BID [facility] Stop: 11/03/23 20:59 Last Admin: 10/06/23 10:09 Dose: 200 mg Hydroxyzine HCl (Hydroxyzine Hcl 10 Mg Tab) 10 mg PO TID [facility] Stop: 11/03/23 20:59 Last Admin: 10/06/23 10:09 Dose: 10 mg Heparin Sodium/Dextrose (Heparin Sodium/Dextrose) 25,000 units in 500 mls @ 25 mls/hr IV .Q20H [facility]; Protocol Stop: 11/03/23 15:29 Last Admin: 10/06/23 07:00 Dose: 1,250 units/hr, 25 mls/hr Acetaminophen (Ofirmev) 1,000 mg in 100 mls @ 400 mls/hr IV Q8H PRN PRN Reason: Mild Pain (Scale 1, 2, 3) Stop: 10/07/23 19:09 Ketorolac Tromethamine (Ketorolac Tromethamine 15 Mg/Ml Vial) 15 mg IV Q6H PRN PRN Reason: Mod-Sev Pain (Scale 4-10) Lidocaine (Lidocaine 5% 1 Patch) 1 patch TD [facility] Stop: 11/03/23 19:29 Last Admin: 10/05/23 21:58 Dose: 1 patch Miscellaneous (Lybalvi 15-10mg Tab: Order Awaiting Action) 1 each N/A QS [facility] Stop: 11/04/23 00:00 Last Admin: 10/06/23 10:09 Dose: Not Given Miscellaneous (Remove Lidoderm Patch) 1 each N/A DAILY@0900 [facility] Stop: 11/04/23 08:59 Last Admin: 10/06/23 10:10 Dose: 1 each Ondansetron HCl (Ondansetron Inj 2 Mg/Ml 2 Ml Vial) 4 mg IV Q6H PRN PRN Reason: Nausea Stop: 11/03/23 19:09 Polyethylene Glycol (Polyethylene (Miralax) 17 Gm Pack) 17 gm PO DAILY PRN PRN Reason: Constipation Stop: 11/03/23 19:09 Prazosin HCl (Prazosin Hcl 1 Mg Cap) 2 mg PO HS [facility] Stop: 11/03/23 20:59 Last Admin: 10/05/23 21:57 Dose: 2 mg Sertraline HCl (Sertraline Hcl 50 Mg Tablet) 50 mg PO DAILY [facility] Stop: 11/04/23 08:59 Last Admin: 10/06/23 10:09 Dose: 50 mg (3) Schizoaffective disorder Schizoaffective disorder type: depressive Qualified Code(s): F25.1 - Schizoaffective disorder, depressive type (4) HIV (human immunodeficiency virus infection) HIV symptom status: unspecified Qualified Code(s): B20 - Human immunodeficiency virus [HIV] disease
[2023-10-06 15:09] VITALS: BP 111/68; PULSE 67; TEMP 98.2; O2SAT 93
[2023-10-06] MEDS: APIXABAN 5 MG TABLET PO STA (17:12)
--- NOTE | 2023-10-07 09:34 | Discharge Summary ---
Date of Service October 07, 2023 Admission HPI Per Admitting Provider This is a 38 yr old M who has a significant PMH of sickle cell trait, schizoaffective disorder and HIV who presents to ED 2/2 chest pain x 2 days. He woke up 2 days ago with pain in his chest and trouble breathing. His sx got worse over the last 2 days. He denies any recent illness. He denies f/c/s, cough, hemoptysis, hematemesis, n/v/d, abd pain, melena or hematochezia. He denies any recent travel or any prior hx of blood clot. In regards to his sickle cell trait he never has had difficulty in the past. He follows with hematology. He does occasionally have blood in the urine. In ED pt remained hemodynamically stable. He was not hypoxic. He was having pin point chest pain to the R upper chest that was worse with inhalation. He was ordered IV heparin bolus and gtt. Admission Exam Per Admitting Provider Vitals signs as noted above General Appearance:Moderately built and nourished, no apparent distress Head: normocephalic, Atraumatic Eyes: normal inspection, EOMI Neck: supple, Trachea midline Respiratory/Chest: Decreased breath sounds, CTA, No accessory muscle use Cardiovascular: S1, S2, No murmur Abdomen/GI:Soft, Non tender, Bowel sounds present Extremities/Musculoskeletal:normal inspection, no edema Neurologic/Psych:AAOX3, grossly no focal neurological deficits Skin: normal color, warm Principal Diagnosis Pulmonary Embolism Discharge Exam Neuro: AAOx4, PERRLA, no aphagia, memory changes, CNII-XII grossly intact HEENT: head normocephalic, moist mucus membranes CV: S1/S2, (-) M/G/R, (-) edema, Resp: Clear to auscultate bilaterally GI: Abdomen S/NT/ND, Ax4 bowel sounds, (-) CVA tenderness Musculoskeletal: 5/5 B/L UE strength, 5/5 B/L LE strength. No gait disturbance Skin: (-) rashes , (-) erythema. Psych: euthymic mood CNSalert, awake and oriented x 3 and no focal sensory and motor deficit appreci ated Discharge Data Allergies Allergy/AdvReac Type Severity Reaction Status Date / Time brexpiprazole Allergy Unknown ON MED LIST Unverified 01/07/23 13:03 quetiapine [From Seroquel] Allergy Unknown ON MED LIST Verified 01/07/23 13:03 trazodone Allergy Unknown ON MED LIST Verified 01/07/23 13:03 Consultations 10/04/23 15:17 ED Decision to Admit Stat Ordered Studies 10/04/23 14:06 CT for pulmonary embolism PE [CT angio chest PE protocol] Stat Hospital Course (1) Acute right-sided thoracic back pain: (2) Embolism, pulmonary with infarction: (3) Schizoaffective disorder: (4) HIV (human immunodeficiency virus infection): Plan This is a 38 yr old M who has a significant PMH of sickle cell trait, schizoaffective disorder and HIV who presents to ED 2/2 chest pain x 2 days and was diagnosed with a RUL PE. Acute right upper lobe pulmonary embolism RUL pulmonary infarct Acute Likely secondary to known sickle cell trait Patient on med/tele IV heparin gtt started; will work towards stopping Heparin gtt tmw 10/05 and starting Eliquis Chest CT: Acute right upper lobe pulmonary emboli, peripheral consolidation within the right upper lobe favors a pulmonary infarct, Small right and trace left pleural effusions. Trace pericardial effusion. ECHO results indicate: EF 55-60%,. mild concentric LVH, LV wall motion normal, No signs of AR/MR/TR or pericardial effusion he will need f/u with hematology in setting of sickle cell trait (follows with Dr. Sainz historically yearly) lidocaine patch, Has as needed IV Toradol and IV Tylenol. Has not utilized any dosing for pain over past 24 hours since admission. Will DC Toradol and continue with IV Tylenol as needed Confirmed Eliquis is $0 through pharmacy. Will order Eliquis 10 mg twice daily x 13 doses starting on 10/06 followed by Eliquis 5 mg p.o. 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 Kale Vazquez Code Status: FULL CODE Dispo: admit to med tele Total Time Total Time Spent Total Time Spent (In Minutes): 40 minutes Discharge Plan Discharge Items Patient Disposition: Home - Self-Care Reason For Visit: PULMONARY EMBOLISM Discharge Diagnosis: Pulmonary Embolism Condition on Discharge: Good Activity: Per Instructions section Weightbearing: Full weightbearing Non-emergency contact: Primary Care Provider Call non-emergency contact if: you have any medication questions, your symptoms worsen, your pain is not controlled, your pain is worsening, your pain is unusual for you and your temperature is above 101 Follow-up/Referrals: Kale Vazquez MD [Primary Care Provider] - 10/10/23 12:40 pm (Date & Time 10/10/2023 12:40 PM Provider Kale Vazquez MD [facility] ) Diet: Regular Addtl Attending Provider Instructions: You were admitted to the [facility] 10/04/2023 after experiencing shortness of breath. A chest CT scan was performed indicating a right upper lobe pulmonary embolism (clot) in your lung for which you were started on a IV Heparin (blood thinning) infusion to prevent further clot burden. An echocardiogram was performed due to your history of sickle cell trait it is suspected that this may have contributed to your development of the pulmonary embolism. It is recommended that you follow with Dr. Sainz to closely monitor your hypercoagulation medications. MEDICATION CHANGES: New Medication: Anticoagulant: Eliquis. Follow the following instructions: 1. Starting on 10/06, take Eliquis 10 mg by mouth twice daily for THIRTEEN days, then continue taking a reduced dose of Eliquis 5 mg by mouth twice daily. SUMMARY OF TEST RESULTS: 10/04/23: Chest CT: 1. Acute right upper lobe pulmonary emboli. 2. Peripheral consolidation within the right upper lobe favors a pulmonary infarct. 3. Hepatic steatosis with suggestion of mild splenomegaly. 4. Small right and trace left pleural effusions. 5. Trace pericardial effusion. 10/04/23: Chest X-ray: There are small pleural effusions with dependent airspace opacities. This could represent atelectasis versus a pneumonitis D-Dimer: 2,980 RECOMMENDATIONS FOR FOLLOW-UP: 1. PCP: Dr. Vazquez 10/10/23 @ 1240 PM. OTHER INSTRUCTIONS: Seek medical attention if you have: * temperature above 101 * chest pain or trouble breathing * abdominal pain, nausea, vomiting * diarrhea, dark stools or bloody stools * any unanswered questions or concerns Call 911 if symptoms are severe. Please take good care of yourself. It has been a pleasure taking care of you. Please take care of yourself. If you have any questions regarding your recent hospitalization please contact [facility] and request Apolinar Betts @ [phone]. Addtl Rn Clinician Provider Instructions: First dose of your Eliquis will be given this afternoon and you will be taking 10 mg from tomorrow morning 2 times daily for a total of 13 doses and then 1 tab let twice daily to continue Pending Studies at Discharge: No Stand-Alone Forms: My [facility], Smoking Cessation Medications and DC Order Prescriptions: New Eliquis 5 mg (74 tabs) tablets,dose pack 5 mg PO BID Qty: 74 0RF lidocaine 5 % Adhesive Patch,Medicated 1 patch transdermal HS Qty: 30 0RF Continued prazosin 1 mg Capsule 2 mg PO HS sertraline 50 mg tablet 50 mg PO DAILY Cabenuva 400 mg/2 mL- 600 mg/2 mL Suspension,Extended Release See Rx Instructions .ROUTE .COMPLEX Rx Instructions: CABOTEGRAVIR: Inject 2 ml (400mg intramuscularly once monthly; RILPIVIRINE: Inject 2 mL (600 mg) intramuscularly once monthly acetaminophen 325 mg Tablet 650 mg PO Q4H PRN (Reason: Pain) gabapentin 100 mg capsule 200 mg PO BID hydroxyzine HCl 10 mg tablet 10 mg PO TID Lybalvi 15-10 mg tablet 1 tab PO HS Discharge Orders: Discharge Order (Routine); Ordered 10/06/23 Ordered By: Fish Calloway Admission Data Admit Date/Time: 10/04/23 15:19 Attending Provider: Fish Calloway Admit Provider: Zuhair Collier Primary Care Provider: Kale Vazquez Other Providers: Zuhair Collier Other Interventions: Discharge Summary Assessment (RN) Last Done: 10/06/23 16:16
[2023-10-12 08:57] LABS: PTT LA Screen 40 sec (<=40)
[2023-10-12 18:52] LABS: Factor 5 Mutation NEGATIVE
== END 2023-10-06 18:22 | disposition home or self-care (01) | DRG 176 ==
LOC: ED 13:10 → EDINP 15:19 → SUATTDRO 15:19 → INTOOBSV 15:19 → 2W 18:11

== ENCOUNTER 2023-11-27 09:36 | Inpatient (IN) ==
--- NOTE | 2023-11-27 10:49 | Emergency Department Note ---
Impression & Plan Shortness of breath, History of pulmonary embolism, Pneumonia, History of HIV infection, Pleural effusion ED Provider Note CHIEF COMPLAINT: Chest pain with deep breathing, history of PE HISTORY OF PRESENT ILLNESS: This 38-year-old male patient presents to the emergency department via private vehicle for evaluation of chest pain with deep breathing. Patient states he was diagnosed about a month and a half with PEs in his right upper chest. The patient was admitted and was started on Eliquis. He took the entire starter pack of Eliquis and states he completed the course about 2 to 3 weeks ago. He states he did not continue the medication and thought that that was the only treatment he needed. Patient denies any recent fever or illness. He denies any cough or congestion. He states he does not feel short of breath, but does have increased pain in the right upper chest with deep breathing. Patient does follow with hematology but has not seen them or his primary care provider since diagnosis with the PEs. The patient does have a history of HIV and follows with infectious disease. Viral load has been undetectable for "quite some time". History provided by: Patient REVIEW OF SYSTEMS: A 10 system review of systems was performed with positives and pertinent negatives listed in the history of present illness. All other systems were reviewed and are negative. ALLERGIES: Seroquel, trazodone, brexpiprazole PHYSICAL EXAM: VITALS: Vitals are noted on the nurse's note and reviewed by myself. GENERAL: This is a 38 year old male, in no acute distress, nondiaphoretic, well- developed well-nourished. SKIN: The skin was without rashes, erythema, edema, or bruising. There is no tenting of the skin. Capillary refill less than 2 seconds. HEAD: Normocephalic atraumatic. EYES: Conjunctivae without injection, sclerae without icterus. NECK: Supple without nuchal rigidity. No lymphadenopathy. Cervical spine is nontender. No JVD. HEART: Regular rate and rhythm without murmurs gallops or rubs. LUNGS: Clear to auscultation bilaterally without wheezes, rales or rhonchi. No retractions or accessory muscle use. ABDOMEN: Positive bowel sounds x 4. Soft, nontender, without masses or organomegaly. Leyva sign negative. No guarding or rebound tenderness. MUSCULOSKELETAL: No muscle atrophy, erythema, or edema noted. Full range of motion without joint tenderness in all extremities. No tenderness to palpation. Normal gait. Strength 5/5 throughout. NEURO: Patient was alert and oriented to person place and time. No focal neurological deficits. An order was placed for continuous hospital monitor. The monitor showed a normal sinus rhythm at a ventricular rate of 92 bpm, per my interpretation. EKG was reviewed by myself and found to be normal sinus rhythm at a rate of 94 beats per minute and per my interpretation reveals no ST elevation or depression. No T wave inversion. Prolonged QT with QTc of 472 ms. And when compared to previous EKG of 10/04/2023 is without significant change Imaging as interpreted by myself and the radiologist revealed pneumonia and pleural effusion, with radiologist interpretation as above. No central PE identified, but respiratory motion artifact and contrast bolus timing does limit the study. I agree with the radiologist's findings as based upon my independent interpretation. EMERGENCY DEPARTMENT COURSE: The patient was seen and evaluated as above. Previous medical records to include previous ED visit and hospitalist documentation was reviewed. The patient presents to the emergency department for right-sided chest pain, particularly with deep breathing. Patient was recently diagnosed with a PEs in his right upper lung. He was started on Eliquis, though was unclear on the follow-up plan to continue the Eliquis and thought the complete course was the starter pack he was given. Patient has not been on Eliquis for about 2 to 3 weeks since completing the starter pack. His symptoms flared up again several days ago. IV access was obtained, labs were drawn. Labs were reviewed. Per my interpretation, there was no leukocytosis or concerning anemia. No thrombocytopenia. INR 1.1. Renal, hepatic function and electrolytes without significant abnormality. Troponin less than 2.3. Procalcitonin 0.03. CTA of the chest was completed to evaluate the patient's symptoms. This was reviewed by myself radiologist as above. Case was discussed with the attending physician. I discussed findings with workup completed here in the emergency department with the patient at bedside. I am concerned given his history of HIV infection, current pneumonia and pleural effusion as well as noncompliance with anticoagulants that the patient may be experiencing an atypical pneumonia or other cause contributing to his symptoms. We discussed the potential for the PEs causing his symptoms. Did recommend inpatient treatment and the patient was agreeable. Patient was started on IV cefepime while here in the emergency department. [facility] Please see her dictation regarding further inpatient care. I attest that I have personally reviewed the patient medication list. I attest that I have reviewed the patient's blood pressure and it was found to be mildly elevated. Suspect this to be situational GCS: 15 In the evaluation and treatment of this patient the following differential diagnoses were entertained: Reactive airway disease, pneumonia, pneumothorax, COPD, CHF, infections, cardiac ischemia, pulmonary embolism, musculoskeletal, gastrointestinal, as well as other pathologies. The chart was completed utilizing [employer] Speech voice recognition software. Grammatical errors, random word insertions, pronoun errors, and incomplete sentences are an occasional consequence of this system due to software limitations, ambient noise, and hardware issues. Any formal questions or concerns about the content, text, or information contained within the body of this dictation should be directly addressed to the provider for clarification. Past Med/Surg History Problem List Pleural effusion (Acute) History of HIV infection (Acute) Pneumonia (Acute) Shortness of breath (Acute) Sickle cell anemia PNA (pneumonia) Depression with suicidal ideation History of pulmonary embolism (Acute) Embolism, pulmonary with infarction (Acute) Post traumatic stress disorder (PTSD) No significant past medical history (Chronic) Leukopenia (Acute) HIV (human immunodeficiency virus infection) (Acute) Schizoaffective disorder Acute abscess of maxillary sinus Medical History Acute right-sided thoracic back pain Pulmonary embolism Methamphetamine use disorder, moderate, in early remission Priapism Encounter for pre-operative examination Abscess of face Facial cellulitis Preseptal cellulitis Active intravenous drug use Surgical History History of incision and drainage (05/11/22) Right Intraoral Facial Abscess Incision and Drainage, Extraction of 5-6 Teeth(Right) - Uriel Valencia DMD No history of previous surgery Social History Smoking Status: Never smoker Tobacco Type: E-cigarettes / Vaping Do You Dip or Chew Tobacco: No; Hx Alcohol Use: No Hx Substance Use: Yes (medical marijuana) Prescribed Medications: Marijuana Last Used Substance: Days (ago) Preferred Language: Liberian Communication Ability: Effective Global Program Director Required: No Beliefs That Will Affect Care: None Current Living Situation: Family Current Living Situation Comment: lives with little brother Feels Safe at Home: Yes Gender Identity: Male Assistive Devices: None Allergies Allergies Allergy/AdvReac Type Severity Reaction Status Date / Time brexpiprazole Allergy Unknown ON MED LIST Unverified 11/27/23 12:05 quetiapine [From Seroquel] Allergy Unknown ON MED LIST Verified 11/27/23 12:05 trazodone Allergy Unknown ON MED LIST Verified 11/27/23 12:05 Home Meds Home Medications Medication Instructions Recorded Confirmed acetaminophen 325 mg tablet 650 mg PO Q4H PRN Pain 01/07/23 11/27/23 cabotegravir ER 400 mg/2 See Rx Instructions .Route .COMPLEX 01/07/23 11/27/23 mL-rilpivirine ER 600 mg/2mL IM suspension,ER (Cabenuva) sertraline 50 mg tablet 50 mg PO DAILY 01/07/23 11/27/23 gabapentin 100 mg capsule 200 mg PO BID 10/04/23 11/27/23 hydroxyzine HCl 10 mg tablet 10 mg PO TID 10/04/23 11/27/23 olanzapine 15 mg-samidorphan 10 mg 1 tab PO HS 10/04/23 11/27/23 tablet (Lybalvi) prazosin 2 mg capsule 2 mg PO HS 11/27/23 11/27/23 Previous Rx's Medication Instructions Recorded apixaban 5 mg (74 tabs) tablets in 5 mg PO BID #74 ea 10/05/23 a dose pack (Eliquis) lidocaine 5 % topical patch 1 patch transdermal HS #30 ea 10/06/23 Results & Data (ED) Vital Signs Vital Signs - 24 hr 11/27/23 09:39 11/27/23 09:56 11/27/23 10:07 Temperature 36.3 C L Temperature Source Temporal Artery Scan Pulse Rate 109 H 92 H Pulse Rate from SpO2 Sensor Respiratory Rate 19 Respiratory Effort / Characteristics Non-Labored Spontaneous Respiratory Depth Normal Blood Pressure 135/86 Blood Pressure Mean 102 Pulse Oximetry 93 99 Oxygen Delivery Method Room Air Room Air Sepsis Recent Fever Within 48 Hours No Sepsis New/Unexplained Change in Mental Status No Sepsis Action Taken by Nursing No Action Required 11/27/23 10:57 11/27/23 11:00 11/27/23 11:09 Temperature Temperature Source Pulse Rate 85 78 Pulse Rate from SpO2 Sensor 88 77 Respiratory Rate 22 17 Respiratory Effort / Characteristics Respiratory Depth Blood Pressure 132/84 130/78 Blood Pressure Mean 97 95 Pulse Oximetry 93 94 Oxygen Delivery Method Sepsis Recent Fever Within 48 Hours Sepsis New/Unexplained Change in Mental Status Sepsis Action Taken by Nursing 11/27/23 12:00 11/27/23 12:30 11/27/23 13:03 Temperature Temperature Source Pulse Rate 76 83 82 Pulse Rate from SpO2 Sensor 76 83 81 Respiratory Rate 15 16 15 Respiratory Effort / Characteristics Respiratory Depth Blood Pressure 125/80 120/71 137/81 Blood Pressure Mean 95 87 99 Pulse Oximetry 91 90 93 Oxygen Delivery Method Sepsis Recent Fever Within 48 Hours Sepsis New/Unexplained Change in Mental Status Sepsis Action Taken by Nursing 11/27/23 14:27 11/27/23 15:00 11/27/23 15:33 Temperature Temperature Source Pulse Rate 82 85 Pulse Rate from SpO2 Sensor 83 86 Respiratory Rate 16 16 Respiratory Effort / Characteristics Respiratory Depth Blood Pressure 133/89 131/84 Blood Pressure Mean 101 99 Pulse Oximetry 94 92 Oxygen Delivery Method Sepsis Recent Fever Within 48 Hours Sepsis New/Unexplained Change in Mental Status Sepsis Action Taken by Nursing 11/27/23 16:03 Temperature Temperature Source Pulse Rate 93 H Pulse Rate from SpO2 Sensor 94 H Respiratory Rate 22 Respiratory Effort / Characteristics Respiratory Depth Blood Pressure 128/85 Blood Pressure Mean 99 Pulse Oximetry 92 Oxygen Delivery Method Sepsis Recent Fever Within 48 Hours Sepsis New/Unexplained Change in Mental Status Sepsis Action Taken by Nursing Laboratory Data 11/27/23 10:17 11/27/23 10:17 Lab Results 11/27/23 11/27/23 Range/Units 10:17 10:22 WBC 4.94 (4.8-10.8) K/ul RBC 4.95 (4.70-6.10) M/uL Hgb 13.9 L (14.0-18.0) g/dl Hct 38.4 L (42.0-52.0) % MCV 77.6 L (80.0-100.0) fL MCH 28.1 (25.0-34.0) pg MCHC 36.2 H (32.0-36.0) g/dL RDW Std Deviation 37.0 (36.4-46.3) fL RDW Coeff of [place] 13.1 (11.5-14.5) % Plt Count 178 (130-400) K/uL MPV 9.1 L (9.4-12.4) fL Immature Gran % (Auto) 2.0 % Neut % (Auto) 73.5 % Lymph % (Auto) 12.6 % [place] % (Auto) 10.9 % Eos % (Auto) 0.8 % Baso % (Auto) 0.2 % Neut # (Auto) 3.63 (1.40-6.50) K/uL Lymph # (Auto) 0.62 L (1.20-3.40) K/uL [place] # (Auto) 0.54 (0.11-0.59) K/uL Eos # (Auto) 0.04 (0.00-0.50) K/uL Baso # (Auto) 0.01 (0.00-0.20) K/uL Immature Gran # (Auto) 0.10 (0.01-0.20) K/uL PT 11.4 (9.0-12.0) Seconds INR 1.1 (0.9-1.1) APTT 28 (21-31) Seconds PTT Ratio 1.0 Sodium 136 (136-145) mmol/L Potassium 3.2 L (3.5-5.1) mmol/L Chloride 101 (98-107) mmol/L Carbon Dioxide 25 (21-32) mmol/L Anion Gap 10 (3-11) BUN 11 (6-23) mg/dl Creatinine 0.87 (0.6-1.4) mg/dl Est Cr Clr Drug Dosing 115.3 ml/min eGFR 114.68 BUN/Creatinine Ratio 12.6 (10-20) Glucose 114 H (70-99(Fasting)) mg/dl Calcium 9.3 (8.6-10.3) mg/dl Total Bilirubin 1.5 H (0.2-1.0) mg/dl AST 24 (13-39) U/L ALT 48 (7-52) U/L Alkaline Phosphatase 96 (34-104) U/L Troponin I High Sens < 2.3 (0-20) pg/ml Total Protein 7.8 (6.0-8.3) gm/dl Albumin 4.2 (3.4-5.0) gm/dl Globulin 3.6 (2.5-4.0) gm/dl Albumin/Globulin Ratio 1.2 (0.9-2) Procalcitonin 0.03 (0-0.5) ng/ml Administered Medications Discontinued Medications Cefepime HCl (Maxipime 2000mg) 2,000 mg in 20 mls @ 5 mls/min IV NOW STA; Protocol Stop: 11/27/23 13:59 Last Admin: 11/27/23 14:30 Dose: 5 mls/min Documented By: CEF Ioversol (Optiray 320 125ml) 112 ml IV ONCE ONE Stop: 11/27/23 11:20 Last Admin: 11/27/23 11:19 Dose: 112 ml Documented By: KATYA Potassium Chloride (Potassium Chloride Crtab 20 Meq Tabcr) 40 meq PO NOW STA Stop: 11/27/23 14:21 Last Admin: 11/27/23 14:29 Dose: 40 meq Documented By: CEF Imaging Data Radiologist's Impression: Chest CTA 11/27/23 10:36 CT angio chest PE protocol CT DOSE: 628.4 mGy.cm HISTORY: 38 years-old Male with right upper chest pain, hx. PE. Acute chest pain or shortness of breath TECHNIQUE: Multiple CTA images of the chest were obtained after the intravenous administration of 112 ml Optiray. Coronal and sagittal MIPS were obtained from the axial data set and were submitted for review. All measurements were obtained according to NASCET criteria. A dose lowering technique was utilized adhering to the principles of ALARA. COMPARISON: 10/04/2023 FINDINGS: CTA: Heart is upper limits of normal in size. Trace pericardial effusion. No thoracic aortic aneurysm or dissection. Respiratory motion artifact and contrast bolus timing limits the study. No central pulmonary emboli identified on today's exam. CT CHEST: Unremarkable thyroid. Subcentimeter mediastinal, hilar and axillary lymph nodes are likely reactive. Mild gynecomastia. There is a [id number] right and small left pleural effusions. No pneumothorax. Mild dependent subsegmental left basilar atelectasis. Groundglass and consolidative opacities of the basal right lower lobe. No suspicious pulmonary nodules or masses identified. The central airways appear patent. Hepatic steatosis with hepatosplenomegaly. No acute upper abdominal abnormality. Probable right renal cyst measures 1.3 cm, partially imaged. No acute fracture. IMPRESSION: 1. Limited study as above. No central pulmonary emboli identified. 2. Moderate right and small left pleural effusions. 3. Right lower lobe consolidation suggestive of pneumonia. 4. Hepatosplenomegaly with hepatic steatosis. ACT 112: Negative or not required by law. The above report was generated using voice recognition software. It may contain grammatical, syntax or spelling errors. Electronically signed by: Bear Braun M.D. 11/27/2023 11:52 AM Discharge Plan Visit Data Chief Complaint: Pain (Generalized) Stated Complaint: IN PAIN ED Provider: Yoel Calderon ED Midlevel Provider: Jessica Mancuso Discharge Problem: Shortness of breath, History of pulmonary embolism, Pneumonia, History of HIV infection, Pleural effusion Patient Disposition: Admitted As Inpatient Forms Stand Alone Forms: [facility] Prescriptions Prescriptions: No Action sertraline 50 mg tablet 50 mg PO DAILY Cabenuva 400 mg/2 mL- 600 mg/2 mL Suspension,Extended Release See Rx Instructions .ROUTE .COMPLEX Rx Instructions: CABOTEGRAVIR: Inject 2 ml (400mg intramuscularly once monthly; RILPIVIRINE: Inject 2 mL (600 mg) intramuscularly once monthly acetaminophen 325 mg Tablet 650 mg PO Q4H PRN (Reason: Pain) prazosin 2 mg capsule 2 mg PO HS gabapentin 100 mg capsule 200 mg PO BID hydroxyzine HCl 10 mg tablet 10 mg PO TID Lybalvi 15-10 mg tablet 1 tab PO HS Eliquis 5 mg (74 tabs) tablets,dose pack 5 mg PO BID Qty: 74 0RF lidocaine 5 % Adhesive Patch,Medicated 1 patch transdermal HS Qty: 30 0RF Referrals Referrals: Kale Vazquez MD [Primary Care Provider] -
[2023-11-27 10:57] LABS: Alanine Aminotransferase 48 U/L (7-52); Albumin Globulin Ratio 1.2 (0.9-2); Albumin Level 4.2 gm/dl (3.4-5.0); Alkaline Phosphatase 96 U/L (34-104); Anion Gap 10 (3-11); Aspartate Aminotransferase 24 U/L (13-39); BUN Creatinine Ratio 12.6 (10-20); Bilirubin,Total 1.5 mg/dl (0.2-1.0); Blood Urea Nitrogen 11 mg/dl (6-23); Calcium 9.3 mg/dl (8.6-10.3); Carbon Dioxide 25 mmol/L (21-32); Chloride 101 mmol/L (98-107); Creatinine Clr Calc Pharmacy 115.3 ml/min; Globulin 3.6 gm/dl (2.5-4.0); Glucose 114 mg/dl (70-99(Fasting)); Potassium 3.2 mmol/L (3.5-5.1); Sodium 136 mmol/L (136-145); Total Protein 7.8 gm/dl (6.0-8.3)
[2023-11-27 11:03] LABS: Troponin I High Sensitivity < 2.3 pg/ml (0-20)
[2023-11-27 11:12] LABS: INR 1.1 (0.9-1.1); Partial Thromboplastin Time 28 Seconds (21-31); Prothrombin Time 11.4 Seconds (9.0-12.0)
[2023-11-27] MEDS: OPTIRAY 320 125ml IV ONE (11:19)
--- NOTE | 2023-11-27 11:55 | CT Scan Report ---
CT angio chest PE protocol CT DOSE: 628.4 mGy.cm HISTORY: 38 years-old Male with right upper chest pain, hx. PE. Acute chest pain or shortness of br eath TECHNIQUE: Multiple CTA images of the chest were obtained after the intravenous administration of 112 ml Optiray. Coronal and sagittal MIPS were obtained from the axial data set and were submitted for review. All measurements were obtained according to NASCET criteria. A dose lowering technique was u tilized adhering to the principles of ALARA. COMPARISON: 10/04/2023 FINDINGS: CTA: Heart is upper limits of normal in size. Trace pericardial effusion. No thoracic aortic aneurysm or d issection. Respiratory motion artifact and contrast bolus timing limits the study. No central pulmona ry emboli identified on today's exam. CT CHEST: Unremarkable thyroid. Subcentimeter mediastinal, hilar and axillary lymph nodes are likely reactive. Mild gynecomastia. There is a [id number] right and small left pleural effusions. No pneumothorax. Mild dependent subsegmental left basilar atelectasis. Groundglass and consolidative opacities of the basal right low er lobe. No suspicious pulmonary nodules or masses identified. The central airways appear patent. Hepatic steatosis with hepatosplenomegaly. No acute upper abdominal abnormality. Probable right renal cyst measures 1.3 cm, partially imaged. No acute fracture. IMPRESSION: 1. Limited study as above. No central pulmonary emboli identified. 2. Moderate right and small left pleural effusions. 3. Right lower lobe consolidation suggestive of pneumonia. 4. Hepatosplenomegaly with hepatic steatosis. ACT 112: Negative or not required by law. The above report was generated using voice recognition software. It may contain grammatical, syntax o r spelling errors. Electronically signed by: Bear Braun M.D. 11/27/2023 11:52 AM
--- OUTSIDE RECORDS SUMMARY | 2023-11-27 13:43 | External Medical Summary | Summary of Care ---
Author Name Unknown Organization [facility] Address [address] [place] [place] [address] Phone [phone] Care Team Providers Care Rehabilitation Case Coordinator Name Role Phone Kale Vazquez MD Primary Care Provider [phone] Reason for Visit * Reason Onset Date Comments No Show 10/11/2023 Encounter Details Date Type Department Care Team (Late st Contact Info) Description 10/11/2023 Telephone Hematology/Oncology [facility] [place] [address] [place] [id number] Sb Sainz MD [address] [place] [address] No Show Allergies Active Allergy Reactions Criticality Noted Date Comments Quetiapine 05/23/2022 Trazodone 05/23/2022 documented as of this encounter (statuses as of 10/11/2023) Medications Medication Sig Dispensed Refills Start Date End Date Status Gabapentin 100 MG Oral Capsule (Neurontin) TAKE 2 CAPSULES ORALLY AT BEDTIME. MAY TAKE ADDITION 100 MG TWICE A DAY NEEDED FOR ANXIETY/PAIN 12/09/2022 Active Gabapentin 300 MG Oral Capsule (Neurontin) TAKE 1 CAPSULE ORALLY AT BEDTIME TAKE WITH 200 YE=045 MG 12/09/2022 Active Sertraline HCl 25 MG [...] Capsule by mouth at bedtime. 09/02/2023 Active Apixaban 5 MG Oral Tablet (Eliquis)Indication s:History of pulmonary embolism Take 2 Tablets by mouth 2 times a day for 7 days, THEN 1 Tablet 2 times a day for 21 days. 70 Tablet 10/09/2023 11/06/2023 Active Lidocaine 5 % External Patch (Lidoderm) Place 1 Patch topically on the skin at bedtime. Active documented as of this encounter (statuses as of 10/11/2023) Active Problems Problem Noted Date Diagnosed Date HIV disease 09/18/2023 Schizoaffective disorder 09/18/2023 Food insecurity 06/12/2022 Overview: Per [facility] Protocol documented as of this encounter (statuses as of 10/11/2023) Social History Tobacco Use Types Packs/Day Years [...] encounter Miscellaneous Notes * Telephone Encounter - Rachael Wiley OSA - 10/11/2023 9:36 AM EDT My g sent * Telephone Encounter - Maria Esther Tobin MED ASSIST - 10/11/2023 9:20 AM EDT Please contact patient to reschedule no show appt with . Thank you. documented in this encounter Plan of Treatment Upcoming Encounters Date Type Department Care Team (Late st Contact Info) Description 10/15/2023 2:00 PM EDT Office Visit [facility] [address] [place] [address] June, Kale Frances MD [address] [place] [address] Health Maintenance Due Date Last Done Comments MENINGOCOCCAL (MENACTRA/MENV EO) (1 - Risk 2-dose series) 08/11/1989 COVID-19 Vaccine (#1) 08/11/1992 Hepatitis C Screening 08/11/2005 DTap/Tdap Vaccines (1 - Tdap) 08/11/2006 HPV (Gardasil) [...] filedocumented as of this encounter Care Teams Rehabilitation Case Coordinator Relationship Specialty Start Date End Date June, Kale Frances MD [address] [place] [address] PCP - General Family Medicine 05/23/22 documented as of this encounter
--- OUTSIDE RECORDS SUMMARY | 2023-11-27 13:43 | External Medical Summary | Summary of Care ---
Author Name Unknown Organization [facility] Address [address] [place] [address] Phone [phone] Care Team Providers Care Flavor Maker Name Role Phone Kale Vazquez MD Primary Care Provider [phone] Reason for Visit * Reason Onset Date Comments Hospital Follow-Up 10/09/2023 QIAN ([facility]) Encounter Details Date Type Department Care Team ([facility] st Contact Info) Description 10/09/2023 Telephone [facility] [address] [place] [address] Sandie Dumont RN Hospital Follow-Up (QIAN ([facility])) Allergies Active Allergy Reactions Criticality Noted Date Comments Quetiapine 05/23/2022 Trazodone 05/23/2022 documented as of this encounter (statuses as of 10/09/2023) Medications Medication Sig Dispensed Refills Start Date End Date Status Gabapentin 100 MG Oral Capsule (Neurontin) TAKE 2 CAPSULES ORALLY AT BEDTIME. MAY TAKE ADDITION 100 MG TWICE A DAY NEEDED FOR ANXIETY/PAIN 12/09/2022 Active Gabapentin 300 MG Oral Capsule (Neurontin) TAKE 1 CAPSULE ORALLY AT BEDTIME TAKE WITH 200 ST=771 MG 12/09/2022 Active Sertraline HCl 25 MG [...] Capsule by mouth at bedtime. 09/02/2023 Active Lidocaine 5 % External Patch (Lidoderm) Place 1 Patch topically on the skin at bedtime. Active documented as of this encounter (statuses as of 10/09/2023) Active Problems Problem Noted Date Diagnosed Date HIV disease 09/18/2023 Schizoaffective disorder 09/18/2023 Food insecurity 06/12/2022 Overview: Per [facility] Protocol documented as of this encounter (statuses as of 10/09/2023) Social History Tobacco Use Types Packs/Day Years [...] encounter Miscellaneous Notes * Telephone Encounter - Sandie Dumont RN - 10/09/2023 2:11 PM EDT Transitions of Care Note Reason for Referral:Recent Admission Phone visit for follow up: QIAN Admitted to: [facility], Date: 10/04/2023 Discharged to: Home, Date: 10/07/2023 Diagnosis driving hospitalization: Pulmonary Embolism Source/Contact: Patient SUBJECTIVE Consent: Verbal consent for review of hospital discharge: Yes REVIEW OF SYSTEMS Patient/Other Reports: Current patient/caregiver problems or concerns: No concerns, states he is doing "fine" at home. CV: Denies problems Pulmonary: Denies problems Chills/Sweats/Fever:Denies chills/sweats Denies fever Appetite:Denies problems such as nausea, vomiting, burning, decreased appetite Current diet: Regular Bowel: denies problems Bladder: denies problems Wound (If applicable): N/A Pain:Denies Sleep:Denies problems FUNCTIONAL STATUS: ADL'S: Needs Assistance With:N/A as pt is independent IADL'S: Needs Assistance With:N/A as pt is independent Cognitive and Mental Health: denies problems, alert and oriented x 3, and able to communicate, understand instructions, process information. 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 No Discharge instructions available for review? Yes PLAN Symptom Monitoring Interventions:Member/caregiver education - signs and symptoms to contact Primary[facility] (DO NOT DELETE-Three casas symptoms patient is to report to PCP) 1. Chest Pain 2. SOB 3. Fever/chills Network Intelligence AnalystFerry Operator of Care interventions/Action Plan: 5 - 7 day follow-up with PCP in place - Date: PCP appointment 10/15/2023 Educated on role of QIAN completed with patient/caregiver. Educated patient/caregiver on patient right to have input on QIAN plan of care. Verification of Home Health/DME if indicated: NA Identified Care Gaps: Yes Care Gaps closed this call: Appointment made or confirmed and Transition of Care follow-up communication Re-evaluation of Plan of Care and progress towards goals achievement: Patient education this visit: Verbal, Confirmed PCP appointment, discussed reasons to call sooner as above Plan to instructed to call Primary Care Provider with change in symptoms or as needed before next follow-up, discharge needs met, verbalizes understanding and agrees with plan. Called pharmacy - Eliquis just came in today. Per pharmacist, need clarification on dosing. Discussed with Dr. Vazquez, new order sent to pharmacy. Attempted to return call to patient, left message. Sandie Dumont, RN documented in this encounter Plan of Treatment Upcoming Encounters Date Type Department Care Team (Late st Contact Info) Description 10/11/2023 8:45 AM EDT Office Visit [facility]ology[facility]On[facility] [address] [facility] [place] [address] Sb Sainz MD [address] [facility] [place] [address] 10/15/2023 2:00 PM EDT Office Visit [facility] [address] [place] [address] June, Kale Frances MD [address] [place] [address] Health Maintenance Due Date Last [...] filedocumented as of this encounter Care Teams Flavor Maker Relationship Specialty Start Date End Date June, Kale Frances MD [address] [place] [address] PCP - General Family Medicine 05/23/22 documented as of this encounter
--- OUTSIDE RECORDS SUMMARY | 2023-11-27 13:43 | External Medical Summary | Summary of Care ---
Author Name Unknown Organization [facility] Address [address] [place] [address] Phone [phone] Care Team Providers Care Financial Institution Manager Name Role Phone Kale Vazquez MD Primary Care Provider [phone] Reason for Visit * Reason Onset Date Comments Hospital Follow-Up 10/09/2023 QIAN ([facility]) Encounter Details Date Type Department Care Team ([facility] st Contact Info) Description 10/09/2023 Telephone [facility] [address] [place] [address] Sandie Dumont RN Hospital Follow-Up (QIAN ([facility])) Allergies Active Allergy Reactions Criticality Noted Date Comments Quetiapine 05/23/2022 Trazodone 05/23/2022 documented as of this encounter (statuses as of 10/10/2023) Medications Medication Sig Dispensed Refills Start Date End Date Status Gabapentin 100 MG Oral Capsule (Neurontin) TAKE 2 CAPSULES ORALLY AT BEDTIME. MAY TAKE ADDITION 100 MG TWICE A DAY NEEDED FOR ANXIETY/PAIN 12/09/2022 Active Gabapentin 300 MG Oral Capsule (Neurontin) TAKE 1 CAPSULE ORALLY AT BEDTIME TAKE WITH 200 LM=828 MG 12/09/2022 Active Sertraline HCl 25 MG [...] as of this encounter (statuses as of 10/10/2023) Active Problems Problem Noted Date Diagnosed Date HIV disease 09/18/2023 Schizoaffective disorder 09/18/2023 Food insecurity 06/12/2022 Overview: Per [facility] Protocol documented as of this encounter (statuses as of 10/10/2023) Social History Tobacco Use Types Packs/Day Years [...] visit for follow up: QIAN Admitted to: [facility], Date: 10/04/2023 Discharged to: Home, Date: 10/07/2023 [...] 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 No Discharge instructions available for review? Yes PLAN Symptom Monitoring Interventions:Member/caregiver education - signs and symptoms to contact [facility] (DO NOT DELETE-Three casas symptoms patient is to report to PCP) 1. Chest Pain 2. SOB 3. Fever/chills Life Skills CoordinatorCertified Physician Assistant of Care interventions/Action Plan: 5 - 7 [...] to patient, left message. Sandie Dumont, RN 10/10/2023 - called pharmacy, patient picked up Shiraqublaine yesterday 10/09/2023 documented in this encounter Plan of Treatment Upcoming Encounters Date Type Department Care Team (Late st Contact Info) Description 10/11/2023 8:45 AM EDT Office Visit Hematology/Oncology [facility] [address] [place] [address] Sb Sainz MD [address] [facility] [place] [address] 10/15/2023 2:00 PM EDT Office Visit [facility] [address] [place] [address] June, Kale Frances MD [address] [place] [address] Health Maintenance Due Date Last [...] filedocumented as of this encounter Care Teams Financial Institution Manager Relationship Specialty Start Date End Date June, Kale Frances MD [address] [place] [address] PCP - General Family Medicine 05/23/22 documented as of this encounter
--- OUTSIDE RECORDS SUMMARY | 2023-11-27 13:43 | External Medical Summary | Summary of Care ---
Author Name Unknown Organization [facility] Address [address] [place] [place] [place] [address] Phone [phone] Care Team Providers Care Wire Taper Name Role Phone Kale Vazquez MD Primary Care Provider [phone] Reason for Visit * Reason Onset Date Comments No Show 10/11/2023 Encounter Details Date Type Department Care Team (Late st Contact Info) Description 10/11/2023 Telephone Hematology/Oncology [facility] [place] [address] [facility] [place] [id number] Sb Sainz MD 200 [place] [address] No Show Allergies Active Allergy Reactions Criticality [...] CAPSULE ORALLY AT BEDTIME TAKE WITH 200 MD=643 MG 12/09/2022 Active Sertraline HCl 25 MG [...] disorder 09/18/2023 Food insecurity 06/12/2022 Overview: Per [facility] Protocol documented as of this [...] Description 10/15/2023 2:00 PM EDT Office Visit [facility] [address] [place] [address] June, Kale Frances MD [address] [place] [address] Health Maintenance Due Date Last [...] filedocumented as of this encounter Care Teams Wire Taper Relationship Specialty Start Date End Date June, Kale Frances MD [address] [place] [address] PCP - General Family Medicine 05/23/22 documented as of this encounter
--- OUTSIDE RECORDS SUMMARY | 2023-11-27 13:43 | External Medical Summary | Summary of Care ---
Author Name Unknown Organization [facility] Address [address] [place] [address] Phone [phone] Care Team Providers Care Jackspooler Name Role Phone Bri Castellon MD Primary Care Provider [phone] Reason for Visit * Reason Onset Date Comments Medication Problem 10/09/2023 Encounter Details Date Type Department Care Team (Late st Contact Info) Description 10/09/2023 Telephone [facility] [address] [place] [address] JuneBri MD [address] [place] [address] Medication Problem Allergies Active Allergy Reactions Criticality Noted Date [...] CAPSULE ORALLY AT BEDTIME TAKE WITH 200 RO=188 MG 12/09/2022 Active Sertraline HCl 25 MG [...] 21 days. 70 Tablet 10/09/2023 11/06/2023 Active documented as of this encounter (statuses [...] as of this encounter Miscellaneous Notes * Addendum Note - Bri Castellon MD - 10/09/2023 3:09 PM EDTAddended by: BRI CASTELLON on: 10/09/2023 03:09 PM Modules accepted: Orders * Telephone Encounter - Bri Castellon MD - 10/09/2023 3:08 PM EDT [facility] of 10 mg BID followed by 5 mg BID. Follow up withhematology/oncology as scheduled. Bri Castellon MD * Telephone Encounter - Sandie Dumont RN - 10/09/2023 2:59 PM EDT Provider to address: QIAN completed for patient discharged from [facility] 10/06/2023 for Pulmonary Embolism. Patient has not started Eliquis at home, states he will pick this up today from the pharmacy. Pharmacy called and stated they had to order medication, received today, but dose unclear. Ordered as 5 mg po BID only. Need to clarify PE dosepak. Last dose eliquis 10/06/2023 Please clarify to [facility] pharmacy Reason for Call: Medication Problem Contact: Telephone Call Contact Type: Medication Provider In-Basket: No Outcome: See above Face to face time spent with Patient (minutes): 0 Total Time including non face to face (minutes): 10 documented in this encounter Plan of Treatment Upcoming Encounters Date Type Department Care Team (Late st Contact Info) Description 10/11/2023 8:45 AM EDT Office Visit Hematology/On[facility] [address] [address] Sb Sainz MD [address] [place] [address] 10/15/2023 2:00 PM EDT Office Visit [address] [place] [address] June, Bri Frances MD [address], [place] [phone] Health Maintenance Due Date Last Done Comments [...] as of this encounter Visit Diagnoses Diagnosis History of pulmonary embolism- Primary Personal history of pulmonary embolism documented in this encounter Care Teams Jackspooler Relationship Specialty Start Date End Date June, Bri Frances MD [address] [place] [address] PCP - General Family Medicine 05/23/22 documented as of this encounter
--- OUTSIDE RECORDS SUMMARY | 2023-11-27 13:43 | External Medical Summary | Summary of Care ---
Author Name Unknown Organization [facility] Address [address] [place] [address] Phone [phone] Care Team Providers Care Black Leather Trimmer Name Role Phone Bri Castellon MD Primary Care Provider [phone] Reason for Visit * Reason Onset Date Comments Medication Problem 10/09/2023 Encounter Details Date Type Department Care Team (Late st Contact Info) Description 10/09/2023 Telephone [facility] [address] [place] [address] JuneBri MD [address] [place] [address] Medication Problem Allergies Active Allergy [...] CAPSULE ORALLY AT BEDTIME TAKE WITH 200 SS=550 MG 12/09/2022 Active Sertraline HCl 25 MG [...] EDT [facility] 10 mg BID followed by 5 mg BID. Follow up withhematology/oncology as scheduled. Bri Castellon MD * Telephone Encounter - Sandie Dumont RN - 10/09/2023 2:59 PM EDT Provider to address: QIAN completed for patient discharged from [facility] 10/06/2023 for Pulmonary Embolism. Patient has not started Eliquis at home, states he will pick this up today from the pharmacy. Pharmacy called and stated they had to order medication, received today, but dose unclear. Ordered as 5 mg po BID only. Need to clarify PE dosepak. Last dose eliquis 10/06/2023 Please clarify to [facility] pharmacy Reason for Call: Medication Problem Contact: [...] Sb Sainz MD [address] [place] [place] [address] 10/15/2023 2:00 PM EDT Office Visit [address] [place] [address] June, Bri Frances MD [address] [place], [place] [phone] Health Maintenance Due Date Last Done Comments [...] embolism documented in this encounter Care Teams Black Leather Trimmer Relationship Specialty Start Date End Date June, Bri Frances MD [address] [place] [address] PCP - General Family Medicine 05/23/22 documented as of this encounter
--- OUTSIDE RECORDS SUMMARY | 2023-11-27 13:43 | External Medical Summary | Summary of Care ---
Author Name Unknown Organization [facility] Address [address] [place] [facility] [facility] [place] [address] Phone [phone] Care Team Providers Care Equipment Services Associate Name Role Phone Kale Vazquez MD Primary Care Provider [phone] Encounter Details Date Type Department Care Team (Late st Contact Info) Description 10/30/2023 Telephone Hematology/Oncology [facility] [place] [address] [place] [address] Sb Sainz MD [address] [place] [address] Allergies Active Allergy Reactions Criticality Noted Date Comments Quetiapine 05/23/2022 Trazodone 05/23/2022 documented as of this encounter (statuses as of 10/30/2023) Medications Medication Sig Dispensed Refills Start Date End Date Status Gabapentin 100 MG Oral Capsule (Neurontin) TAKE 2 CAPSULES ORALLY AT BEDTIME. MAY TAKE ADDITION 100 MG TWICE A DAY NEEDED FOR ANXIETY/PAIN 12/09/2022 Active Gabapentin 300 MG Oral Capsule (Neurontin) TAKE 1 CAPSULE ORALLY AT BEDTIME TAKE WITH 200 DN=514 MG 12/09/2022 Active Sertraline HCl 25 MG [...] as of this encounter (statuses as of 10/30/2023) Active Problems Problem Noted Date Diagnosed Date History of pulmonary embolism 10/15/2023 Overview: September 2023 HIV disease 09/18/2023 Overview: On monthly [place]. Following with [facility]. Schizoaffective disorder 09/18/2023 Food insecurity 06/12/2022 Overview: Per [facility] Protocol documented as of this encounter (statuses as of 10/30/2023) Social History Tobacco Use Types Packs/Day Years [...] encounter Miscellaneous Notes * Telephone Encounter - Yumiko Jurado MED ASSIST - 10/30/2023 10:27 AM EDT Pt did not show today for her appointment with Dr. Sainz. Please call to reschedule documented in this encounter Plan of Treatment [...] filedocumented as of this encounter Care Teams Equipment Services Associate Relationship Specialty Start Date End Date June, Kale Frances MD [address] [place] [address] PCP - General Family Medicine 05/23/22 documented as of this encounter
--- OUTSIDE RECORDS SUMMARY | 2023-11-27 13:43 | External Medical Summary | Summary of Care ---
Author Name Unknown Organization [facility] Address [address] [place] [facility] [address] Phone [phone] Care Team Providers Care Barrel Dedenting Machine Operator Name Role Phone Kale Vazquez MD Primary Care Provider [phone] Reason for Visit * Reason Onset Date Comments No Show 10/11/2023 Encounter Details Date Type Department Care Team (Late st Contact Info) Description 10/11/2023 Telephone Hematology/Oncology [facility] [place] [address] [place] [phone] Sb Sainz MD 200 [place] [address] No Show Allergies Active Allergy Reactions Criticality Noted Date Comments Quetiapine 05/23/2022 Trazodone 05/23/2022 documented as of this encounter (statuses as of 10/12/2023) Medications Medication Sig Dispensed Refills Start Date End Date Status Gabapentin 100 MG Oral Capsule (Neurontin) TAKE 2 CAPSULES ORALLY AT BEDTIME. MAY TAKE ADDITION 100 MG TWICE A DAY NEEDED FOR ANXIETY/PAIN 12/09/2022 Active Gabapentin 300 MG Oral Capsule (Neurontin) TAKE 1 CAPSULE ORALLY AT BEDTIME TAKE WITH 200 TF=560 MG 12/09/2022 Active Sertraline HCl 25 MG [...] as of this encounter (statuses as of 10/12/2023) Active Problems Problem Noted Date Diagnosed Date HIV disease 09/18/2023 Schizoaffective disorder 09/18/2023 Food insecurity 06/12/2022 Overview: Per [facility] Protocol documented as of this encounter (statuses as of 10/12/2023) Social History Tobacco Use Types Packs/Day Years [...] Telephone Encounter - Rachael Wiley OSA - 10/12/2023 8:20 AM EDT Pt is scheduled and aware * Telephone Encounter - Rachael Wiley OSA [...] Description 10/15/2023 2:00 PM EDT Office Visit [facility] [address] [place] [phone] Kale Vazquez MD [address] [place] [address] 10/30/2023 8:45 AM EDT Office Visit Hematology/Oncology [facility] [address] [place] [phone] Sb Sainz MD [address] [facility] [place] [address] Health Maintenance Due Date Last Done Comments [...] filedocumented as of this encounter Care Teams Barrel Dedenting Machine Operator Relationship Specialty Start Date End Date June, Kale Frances MD [address] [place] [address] PCP - General Family Medicine 05/23/22 documented as of this encounter
--- OUTSIDE RECORDS SUMMARY | 2023-11-27 13:43 | External Medical Summary | Summary of Care ---
Author Name Unknown Organization [facility] Address [address] [place] [address] Phone [phone] Care Team Providers Care Canvas Shop Laborer Name Role Phone Kale Vazquez MD Primary Care Provider [phone] Reason for Visit * Reason Onset Date Comments Hospital Follow-Up Patient is he re today for a hospital follow up. Patient had a blood clot in his lung and was admitted for three days.Patient states he is feeling okay now. Hospital Follow-Up 10/15/2023 Encounter Details Date Type Department Care Team (Late st Contact Info) Description 10/15/2023 2:00 PM EDT Office Visit [facility] [address] [place] [phone] Kale Vazquez MD [address] [place] [address] Hospital discharge follow-up*; History of pulmonary embolism; Schizoaffective disorder, bipolar type (HCC); HIV disease (HCC) Allergies Active Allergy Reactions Criticality Noted Date Comments Quetiapine 05/23/2022 Trazodone 05/23/2022 documented as of this encounter (statuses as of 10/15/2023) Medications Medication Sig Dispensed Refills Start Date End Date Status Gabapentin 100 MG Oral Capsule (Neurontin) TAKE 2 CAPSULES ORALLY AT BEDTIME. MAY TAKE ADDITION 100 MG TWICE A DAY NEEDED FOR ANXIETY/PAIN 12/09/2022 Active Gabapentin 300 MG Oral Capsule (Neurontin) TAKE 1 CAPSULE ORALLY AT BEDTIME TAKE WITH 200 KB=000 MG 12/09/2022 Active Sertraline HCl 25 MG [...] as of this encounter (statuses as of 10/15/2023) Active Problems Problem Noted Date Diagnosed Date History of pulmonary embolism 10/15/2023 Overview: September 2023 HIV disease 09/18/2023 Overview: On monthly Cabenuva. Following with [facility]. Schizoaffective disorder 09/18/2023 Food insecurity 06/12/2022 Overview: Per [facility] Protocol documented as of this encounter (statuses as of 10/15/2023) Social History Tobacco Use Types Packs/Day Years [...] Sign Reading Time Taken Comments Blood Pressure 118/72 10/15/2023 2:11 PM EDT Pulse 82 10/15/2023 2:11 PM EDT Temperature 36.6 C (97.8 F) 10/15/2023 2:11 PM ED T Respiratory Rate 16 10/15/2023 2:11 PM EDT Oxygen Saturation 93% 10/15/2023 2:11 PM EDT Inhaled Oxygen Concentration - - Weight 82.7 kg (182 lb 6.4 oz) 10/15/2023 2:11 P M EDT Height 167.6 cm (5' 6") 10/15/2023 2:11 PM EDT Body Mass Index 29.44 10/15/2023 2:11 PM EDT documented in this encounter Progress Notes * Kale Vazquez MD - 10/15/2023 2:19 PM EDT Images from the original note were not included. Assessment and Plan 1. History of pulmonary embolism Right upper lobe pulmonary emboli in the setting of sickle cell trait. Now on therapeutic anticoagulation with Eliquis 10 mg twice daily times 10 days followed by 5 mg twice daily. Stressed importance of compliance with this medication regimen. Patient has follow up with Hematology Oncology on 10/29. 2. Schizoaffective disorder, bipolar type (HCC) With recent psychiatric hospitalization. Continue to follow up with Psychiatry. 3. HIV disease (HCC) On monthly Cabenuva. Following with infectious disease. 4. Hospital discharge follow-up - DISCH MED RECON CUR MED LIS Wrap-Up Follow up in 6 months. History of Present Illness The patient is a 38-year-old male with past medical history of HIV, schizoaffective disorder, sickle cell trait who presents for hospital follow up. Patient was [facility] to [facility] from 10/04/2023 through 10/07/2023. Patient initially presented due to chest pain of 2 days' duration. Also noted some shortness of breath. Patient was diagnosed with an acute right upper lobe pulmonary embolism thought likely secondary to sickle cell trait. Patient was initiated on IV heparin patient was transitioned from heparin toEliquis therapeutic dosing 10 mg twice daily x7 days which will then be transitioned to 5 mg twice daily. It was recommended he follow up with Hematology on an outpatient basis. He previously has follow up with Dr. Sainz. He did have an echocardiogram which showed an EF of 55-60% with mild concentric LVH and normal wall motion. No valvular disease. He was chronic conditions including HIV, schizoaffective disorder remained unchanged. Today symptoms have completely resolved. He denies chest pain or shortness of breath. He was takinghis Eliquis 10 mg twice daily to complete the initial 7 day therapeutic window follow up by 5 mg twice daily. He has follow up scheduled with his foundation coordinator/oncologist Dr. Sainz on 10/30/2023. Physical Exam Vitals: 10/15/23 1411 Temp: 36.6 C (97.8 F) Pulse: 82 Resp: 16 SpO2: 93% BP: 118/72 BMI: 29.45 Physical Exam Physical Exam Vitals reviewed. Constitutional: General: He is not in acute distress. Cardiovascular: Rate and Rhythm: Normal rate and regular rhythm. Heart sounds: No murmur heard. Pulmonary: Effort: Pulmonary effort is normal. No respiratory distress. Breath sounds: Normal breath sounds. No wheezing. Skin: General: Skin is warm and dry. Neurological: General: No focal deficit present. Mental Status: He is alert. Time: I spent a total of 20-29 minutes (exact time 28 mins) on the date of service in preparation, delivery, and documentation of the care provided to the patient excluding any time spent in the performance of separately billed services. This note has been completed in part utilizing [employer] Speech Voice Recognition Software. Due to technical limitations of the software, grammatical errors, random word insertions, prounoun errors, and incomplete sentences may occur. Any formal questions or concerns about the content, text, or information contained within the body of this dictation should be directly addressed to the provider for clarification. documented in this encounter Nursing Notes * Maria Esther Chau MED ASSIST - 10/15/2023 2:13 PM EDT The patient has been properly identified by confirmation of name and date of . Chief Complaint Patient presents with Hospital Follow-Up Patient is here today for a hospital follow up. Patient had a blood clot in his lung and was admitted for three days. Patient states he is feeling okay now. documented in this encounter Plan of Treatment Upcoming Encounters Date Type Department Care Team (Late st Contact Info) Description 10/30/2023 8:45 AM EDT Office Visit Hematology/Oncology [facility] [place] [address] [place] [phone] Sb Sainz MD [address] [facility] [place] [address] Health Maintenance Due Date Last Done Comments [...] Hospital discharge follow-up- Primary Other follow-up examination History of pulmonary embolism Personal history of pulmonary embolism Schizoaffective disorder, bipolar type (HCC) Schizoaffective disorder, unspecified condition HIV disease (HCC) Human immunodeficiency virus [HIV] disease documented in this encounter Care Teams Canvas Shop Laborer Relationship Specialty Start Date End Date June, Kale Frances MD [address] [place] [address] PCP - General Family Medicine 05/23/22 documented as of this encounter
--- OUTSIDE RECORDS SUMMARY | 2023-11-27 13:43 | External Medical Summary | Summary of Care ---
Author Name Unknown Organization [facility] Address [address] [place] [address] Phone [phone] Care Team Providers Care Refrigeration Operator Name Role Phone Kale Vazquez MD Primary Care Provider [phone] Reason for Visit * Reason Onset Date Comments Hospital Follow-Up 10/09/2023 [facility] ([facility]) Encounter Details Date Type Department Care Team ([facility] st Contact Info) Description 10/09/2023 Telephone [facility] [address] [place] [address] Sandie Dumont RN Hospital Follow-Up ([facility] ([facility])) Allergies Active Allergy Reactions Criticality Noted Date [...] CAPSULE ORALLY AT BEDTIME TAKE WITH 200 NL=581 MG 12/09/2022 Active Sertraline HCl 25 MG [...] visit for follow up: [facility] Admitted to: [facility], Date: 10/04/2023 Discharged to: Home, Date: 10/07/2023 [...] 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 No Discharge instructions available for review? Yes PLAN Symptom Monitoring Interventions:Member/caregiver education - signs and symptoms to contact PrimaryCare (DO NOT DELETE-Three casas symptoms patient is to report to PCP) 1. Chest Pain 2. SOB 3. Fever/chills Coach Tour DriverFront End Application Developer of Care interventions/Action Plan: 5 - 7 [...] 10/11/2023 8:45 AM EDT Office Visit Hematology/Oncology [facility] [address] [facility] [place] [phone] Sb Sainz MD [address] [facility] [place] [address] 10/15/2023 2:00 PM EDT Office Visit [facility] [address] [place] [address] June, Kale Frances MD [address] [place] [address] Health Maintenance Due Date Last [...] filedocumented as of this encounter Care Teams Refrigeration Operator Relationship Specialty Start Date End Date June, Kale Frances MD [address] [place] [address] PCP - General Family Medicine 05/23/22 documented as of this encounter
--- OUTSIDE RECORDS SUMMARY | 2023-11-27 13:44 | External Medical Summary | Summary of Care ---
Author Name Unknown Organization [facility] Address [address] [place] [address] Phone [phone] Care Team Providers Care Locksmith Apprentice Name Role Phone Kale Vazquez MD Primary Care Provider [phone] Reason for Visit * Reason Onset Date Comments Hospital Follow-Up 10/05/2023 Encounter Details Date Type Department Care Team (Late st Contact Info) Description 10/05/2023 Telephone General Internal Medicine [facility] [place] [address] [place] [address] JuneKale MD [address] [place], [place] [phone] Hospital Follow-Up Allergies Active Allergy Reactions Criticality Noted Date [...] CAPSULE ORALLY AT BEDTIME TAKE WITH 200 YX=341 MG 12/09/2022 Active Sertraline HCl 25 MG [...] Capsule by mouth at bedtime. 09/02/2023 Active documented as of this encounter (statuses [...] Telephone Encounter - Rachael Wiley OSA - 10/09/2023 7:53 AM EDT Pt is scheduled and aware * Telephone Encounter - Uma Joyner LPN - 10/05/2023 3:45 PM EDT Scheduling: Please contact patient to reschedule a Return visit for next available opening with Dr. Sainz. Patient last saw him on 06/22/2023 * Telephone Encounter - Cameron Bell RN - 10/05/2023 2:04 PM EDT Patient admitted to [facility], with discharge planned for Sunday10/06/23. Patient treated for PE withinfaria, to be discharged home on Eliquis. Discharging provider recommends a Hematology follow up appointment for PE in setting of sickle cell trait. Please assist patient in scheduling. Thank you documented in this encounter Plan of Treatment Upcoming Encounters Date Type Department Care Team (Late st Contact Info) Description 10/10/2023 12:40 PM EDT Office Visit [facility] [address] [place] [phone] JuneKale MD [address] [place] [address] 10/11/2023 8:45 AM EDT Office Visit Hematology/Oncology [facility] [address] [place] [phone] Sb Sainz MD [address] [facility] [place] [address] Health Maintenance Due Date Last Done Comments [...] filedocumented as of this encounter Care Teams Locksmith Apprentice Relationship Specialty Start Date End Date June, aKle Frances MD [address] [place] [address] PCP - General Family Medicine 05/23/22 documented as of this encounter
--- NOTE | 2023-11-27 14:25 | History & Physical Report ---
Date of Service November 27, 2023 Assessment & Plan (1) History of pulmonary embolism: (2) HIV (human immunodeficiency virus infection): (3) Schizoaffective disorder: (4) Depression with suicidal ideation: (5) PNA (pneumonia): (6) Sickle cell anemia: Plan Mr. Jurado is a 38 year old AA M that presents to the ED with SOB that has been worsening over the past few days. He denies fever and chills. Reports orthopnea. Reports that his SOB feels similar to the symptoms that he had with his PE in October, with pain on the right side of his chest. Was recently admitted with a PE 10/03-10/06 and was sent home on PO Eliquis. He, unfortunately, did not follow up with his PCP and stopped taking his Eliquis; last dose of Eliquis approximately 3 weeks ago. Reports that the pain is worse with deep bal ths. Explained the importance of continuation of anticoagulation post pulmonary embolism x 3 months. Additional PMH includes: HIV+, Sickle Cell trait, Depression with SI, Current IVDA. Most recent ECHO 10/05/23 mild concentric LVH, EF 55-60%, No valvular disease. CXR today shows moderate right and small left pleural effusions with RLL consolidation suggestive of PNA; additional shows hepatosplenomegaly. No leukocytosis, mild hypokalemia 3.2, T. bili 1.5, no transaminitis, troponin negative; otherwise labs unremarkable. Denies current thoughts of harming himself or others. He states that at nighttime it is helpful for him to illuminate visual and auditory hallucinations with having music on which he uses his cell phone for. Pt will be admitted for further evaluation and management of his symptoms with continuation of IV abx, replace electrolytes, obtain sputum culture and restart him on Eliquis. PNA: Acute Sputum Culture ordered Chest CTA: Limited study as above. No central pulmonary emboli identified. Moderate right and small left pleural effusions. Right lower lobe consolidation suggestive of pneumonia. Hepatosplenomegaly with hepatic steatosis. Repeat Chest CTA in three months for resolution. ECG NSR Biofire ordered and MRSA swab ordered check Procalcitonin Started on Cefepime in ED; continue for now and adjust based on sputum culture Add Doxycycline; adjust based on sputum culture Incentive spirometry Hypokalemia Acute Serum potassium 3.2; replaced with 40 p.o. Trend BMP in a.m. No ectopy on monitor History of PE: Chronic Last admission 10/03-10/06 dx with PE Sent home on PO Eliquis; did not attend f/u with PCP and stopped taking Eliquis after he ran out Last dose of Eliquis approximately 3 weeks ago Chest CTA today negative for PE Restart Eliquis HIV pt reports currently undetectable receives Cabenuva injection monthly Schizoaffective disorder Takes Lybalvi, prazosin (for PTSD nightmares) and sertraline; continue Follows with Outpatient Psych During my encounter; [facility] correctional case manager was in the room Denies current thoughts of harming himself or others. Sickle Cell Trait follows [facility] on a yearly basis; reports it has been > 1 year since his visit Disposition: PCP: Dr. Kale Vazquez Code Status: FULL CODE Admit to med/tele VTE Prophylaxis: Restarting on Eliquis I spent a total of 87 minutes coordinating, documenting, and providing care for this patient excluding time spent in the performance of separately billed services. All of the aforementioned completed while collaborating with the assigned attending physician for a full treatment plan. Please see their addendum for further details. History of Present Illness Chief Complaint: SOB Primary Care Provider: Kale Vazquez MD Mr. Jurado is a 38 year old Male that presents to the ED with SOB that has been worsening over the past few days. He denies fever and chills. Reports orthopnea. Reports that his SOB feels similar to the symptoms that he had with his PE in October, with pain on the right side of his chest. Was recently admitted with a PE and was sent home on PO Eliquis. He, unfortunately, did not follow up with his PCP and stopped taking his Eliquis; last dose of Eliquis approximately 3 weeks ago. Reports that the pain is worse with deep breaths. Explained the importance of continuation of anticoagulation post pulmonary embolism x 3 months. Additional PMH includes: HIV+, Sickle Cell trait, Depression with SI, Last IVDA was years ago. Most recent ECHO 10/05/23 mild concentric LVH, EF 55-60%, No valvular disease. CXR today shows moderate right and small left pleural effusions with RLL consolidation suggestive of PNA; additional shows hepatosplenomegaly. No leukocytosis, mild hypokalemia 3.2, T. bili 1.5, no transaminitis, troponin negative; otherwise labs unremarkable. Denies tobacco or alcohol use. Last IVDA was years ago. Has a medical marijuana card and vapes with his last vaping a few days ago. Patient denies fever, chills, ASHBY, dizziness, chest pain, palpitations, hematuria, hematochezia, abdominal pain or tenderness, N/V/D, recent falls or trauma. Pt sitting upright in his hospital bed in no apparent distress. 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 Lungs decreased to auscultation, no crepitus on right side of chest, pain is reproducible with palpation. No signs of trauma. Denies current thoughts of harming himself or others. He states that at nighttime it is helpful for him to illuminate visual and auditory hallucinations with having music on which he uses his cell phone for. Pt will be admitted for further evaluation and management of his symptoms of PNA with continuation of IV abx, replace electrolytes, obtain sputum culture and restart him on Eliquis. Please see A/P for further details. Allergies Allergy/AdvReac Type Severity Reaction Status Date / Time brexpiprazole Allergy Unknown ON MED LIST Unverified 11/27/23 12:05 quetiapine [From Seroquel] Allergy Unknown ON MED LIST Verified 11/27/23 12:05 trazodone Allergy Unknown ON MED LIST Verified 11/27/23 12:05 Home Medications Medication Instructions Recorded Confirmed Type acetaminophen 325 mg tablet 650 mg PO Q4H PRN Pain 01/07/23 11/27/23 History cabotegravir ER 400 mg/2 See Rx Instructions .Route .COMPLEX 01/07/23 11/27/23 History mL-rilpivirine ER 600 mg/2mL IM suspension,ER (Cabenuva) sertraline 50 mg tablet 50 mg PO DAILY 01/07/23 11/27/23 History gabapentin 100 mg capsule 200 mg PO BID 10/04/23 11/27/23 History hydroxyzine HCl 10 mg tablet 10 mg PO TID 10/04/23 11/27/23 History olanzapine 15 mg-samidorphan 10 mg 1 tab PO HS 10/04/23 11/27/23 History tablet (Lybalvi) apixaban 5 mg (74 tabs) tablets in 5 mg PO BID #74 ea 10/05/23 11/27/23 Rx a dose pack (Eliquis) lidocaine 5 % topical patch 1 patch transdermal HS #30 ea 10/06/23 11/27/23 Rx prazosin 2 mg capsule 2 mg PO HS 11/27/23 11/27/23 History Past Med/Surg History Problem List (Updated 11/27/23 @ 15:33 by Jessica Mancuso PA-C) Pleural effusion (Acute) History of HIV infection (Acute) Pneumonia (Acute) Shortness of breath (Acute) Sickle cell anemia PNA (pneumonia) Depression with suicidal ideation History of pulmonary embolism (Acute) Embolism, pulmonary with infarction (Acute) Post traumatic stress disorder (PTSD) No significant past medical history (Chronic) Leukopenia (Acute) HIV (human immunodeficiency virus infection) (Acute) Schizoaffective disorder Acute abscess of maxillary sinus Medical History Acute right-sided thoracic back pain Pulmonary embolism Methamphetamine use disorder, moderate, in early remission Depression with suicidal ideation Priapism Encounter for pre-operative examination Abscess of face Facial cellulitis Preseptal cellulitis Active intravenous drug use Surgical History History of incision and drainage (05/11/22) Right Intraoral Facial Abscess Incision and Drainage, Extraction of 5-6 Teeth(Right) - Uriel Valencia DMD No history of previous surgery Social History Smoking Status: Never smoker Tobacco Type: E-cigarettes / Vaping Do You Dip or Chew Tobacco: No; Hx Alcohol Use: No Hx Substance Use: Yes (medical marijuana) Prescribed Medications: Marijuana Last Used Substance: Days (ago) Preferred Language: Albanian Communication Ability: Effective Drafter Electronic Required: No Beliefs That Will Affect Care: None Current Living Situation: Family Current Living Situation Comment: lives with little brother Feels Safe at Home: Yes Gender Identity: Male Assistive Devices: None Review of Systems Review of Systems: Neuro: (-) Falls, trauma, slurred speech HEENT: (-) ASHBY, dizziness, dysphagia, visual or auditory changes CV: (-) CP, palpitations, swelling Resp: (-) SOB GI: (-) appetite changes, N/V/D, bowel changes : (-) urinary changes Skin: (-) rashes Psych: (-) anxiety, depression Physical Exam Physical Exam: Neuro: AAOx4, PERRLA, no aphagia, memory changes, CNII-XII grossly intact HEENT: head normocephalic, moist mucus membranes CV: S1/S2, (-) M/G/R, (-) edema, cap refill < 3 seconds Resp: Lungs CTA in all gonzales. On RA (-) crepitus GI: Abdomen S/NT/ND, Ax4 bowel sounds, (-) CVA tenderness Musculoskeletal: 5/5 B/L UE strength, 5/5 B/L LE strength. No gait disturbance Skin: (-) rashes , (-) erythema. Psych: euthymic mood Results & Data Results & Data Vital Signs (Past 12 Hours) Vital Signs Temp Pulse Resp BP Pulse Ox O2 Del Method 11/27/23 11:09 78 17 130/78 94 11/27/23 11:00 132/84 11/27/23 10:57 85 22 93 11/27/23 10:07 99 Room Air 11/27/23 09:56 92 H 11/27/23 09:39 36.3 C L 109 H 19 135/86 93 Room Air Laboratory Results BMP 11/27/23 10:17 Sodium 136 Potassium 3.2 L Chloride 101 Carbon Dioxide 25 BUN 11 Creatinine 0.87 Glucose 114 H Calcium 9.3 Liver Function 11/27/23 Range/Units 10:17 Total Bilirubin 1.5 H (0.2-1.0) mg/dl AST 24 (13-39) U/L ALT 48 (7-52) U/L Alkaline Phosphatase 96 (34-104) U/L Albumin 4.2 (3.4-5.0) gm/dl Diagnostic Findings Chest CTA 11/27/23 10:36 CT angio chest PE protocol CT DOSE: 628.4 mGy.cm HISTORY: 38 years-old Male with right upper chest pain, hx. PE. Acute chest pain or shortness of breath TECHNIQUE: Multiple CTA images of the chest were obtained after the intravenous administration of 112 ml Optiray. Coronal and sagittal MIPS were obtained from the axial data set and were submitted for review. All measurements were obtained according to NASCET criteria. A dose lowering technique was utilized adhering to the principles of ALARA. COMPARISON: 10/04/2023 FINDINGS: CTA: Heart is upper limits of normal in size. Trace pericardial effusion. No thoracic aortic aneurysm or dissection. Respiratory motion artifact and contrast bolus timing limits the study. No central pulmonary emboli identified on today's exam. CT CHEST: Unremarkable thyroid. Subcentimeter mediastinal, hilar and axillary lymph nodes are likely reactive. Mild gynecomastia. There is a [id number] right and small left pleural effusions. No pneumothorax. Mild dependent subsegmental left basilar atelectasis. Groundglass and consolidative opacities of the basal right lower lobe. No suspicious pulmonary nodules or masses identified. The central airways appear patent. Hepatic steatosis with hepatosplenomegaly. No acute upper abdominal abnormality. Probable right renal cyst measures 1.3 cm, partially imaged. No acute fracture. IMPRESSION: 1. Limited study as above. No central pulmonary emboli identified. 2. Moderate right and small left pleural effusions. 3. Right lower lobe consolidation suggestive of pneumonia. 4. Hepatosplenomegaly with hepatic steatosis. ACT 112: Negative or not required by law. The above report was generated using voice recognition software. It may contain grammatical, syntax or spelling errors. Electronically signed by: Bear Braun M.D. 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 Denies fever and cough. 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 Labs and imaging reviewed, chest imaging reveals RLL pneumonia With pleural effusion. Continue with cefepime, doxycycline, Eliquis. Patient will need repeat CT scan of the chest in about 6 weeks time to document resolution of pneumonia and pleural effusion. On exam: GENERAL: Alert and oriented x3. NAD, on RA. HEENT: No pallor, no icterus. Pupils equal, round and reactive to light. Oral mucosa moist. NECK: No JVD, no neck masses. HEART: S1 and S2 heard. Regular rate and rhythm. No murmur, no gallop. RESPIRATORY SYSTEM: Normal AP diameter. No accessory muscle use. No wheezing, RLL crackles. ABDOMEN: Soft, bowel sounds present, nontender, no distention. CENTRAL NERVOUS SYSTEM: No facial droop. Speech is clear. Obeys simple commands. Moves extremities. EXTREMITIES: No edema, no erythema seen. I have seen and examined the patient and have discussed the case with the provider above. I agree with the assessment and plan as stated. Time spent: 25 min. (2) HIV (human immunodeficiency virus infection) HIV symptom status: unspecified Qualified Code(s): B20 - Human immunodeficiency virus [HIV] disease (3) Schizoaffective disorder Schizoaffective disorder type: depressive Qualified Code(s): F25.1 - Schizoaffective disorder, depressive type
[2023-11-27] MEDS: POTASSIUM CHLORIDE CRTAB 20 MEQ TABCR PO STA (14:29)
[2023-11-27] MEDS: CEFEPIME 2000MG 2,000 MG/20 ML SYR IV STA (14:30)
[2023-11-27 15:00] LABS: Basophils # (auto) 0.01 K/uL (0.00-0.20); Basophils % (auto) 0.2 %; Eosinophils # (auto) 0.04 K/uL (0.00-0.50); Eosinophils % (auto) 0.8 %; Hematocrit (blood only) 38.4 % (42.0-52.0); Hemoglobin 13.9 g/dl (14.0-18.0); Lymphocytes # (auto) 0.62 K/uL (1.20-3.40); Lymphocytes % (auto) 12.6 %; Mean Corpuscular Hemoglobin 28.1 pg (25.0-34.0); Mean Corpuscular Hgb Conc 36.2 g/dL (32.0-36.0); Mean Corpuscular Volume 77.6 fL (80.0-100.0); Mean Platelet Volume 9.1 fL (9.4-12.4); Monocytes # (auto) 0.54 K/uL (0.11-0.59); Monocytes % (auto) 10.9 %; Neutrophils # (auto) 3.63 K/uL (1.40-6.50); Neutrophils % (auto) 73.5 %; Platelet Count 178 K/uL (130-400); RDW Coefficient of Variation 13.1 % (11.5-14.5); Red Blood Count 4.95 M/uL (4.70-6.10); White Blood Count 4.94 K/ul (4.8-10.8)
[2023-11-27 17:15] LABS: Adenovirus PCR Not Detected (NotDetected); Bordetella parapertussis PCR Not Detected (NotDetected); Bordetella pertussis PCR Not Detected (NotDetected); Chlamydia pneumoniae PCR Not Detected (NotDetected); Coronavirus 229E PCR Not Detected (NotDetected); Coronavirus CoV-2 (COVID19)PCR Not Detected (NotDetected); Coronavirus HKU1 PCR Not Detected (NotDetected); Coronavirus NL63 PCR Not Detected (NotDetected); Coronavirus OC43PCR Not Detected (NotDetected); Human Metapneumovirus PCR Not Detected (NotDetected); Influenza A PCR Not Detected (NotDetected); Influenza B PCR Not Detected (NotDetected); Mycoplasma pneumoniae PCR Not Detected (NotDetected); Parainfluenza Virus 1 PCR Not Detected (NotDetected); Parainfluenza Virus 2 PCR Not Detected (NotDetected); Parainfluenza Virus 3 PCR Not Detected (NotDetected); Parainfluenza Virus 4 PCR Not Detected (NotDetected); Respiratory Syncytial VirusPCR Not Detected (NotDetected); Rhinovirus/Enterovirus PCR Not Detected (NotDetected)
[2023-11-27] MEDS ORDERED: MAGNESIUM HYDROXIDE SUSP 30 ML UDC PO PRN (18:23)
[2023-11-27] MEDS ORDERED: ONDANSETRON INJ 2 MG/ML 2 ML VIAL IV PRN (18:23)
[2023-11-27] MEDS ORDERED: ALUMINUM/MAGNESIUM SUSP 30 ML UDC PO PRN (18:23)
[2023-11-27] MEDS ORDERED: POLYETHYLENE (MIRALAX) 17 GM PACK PO PRN (18:23)
[2023-11-27] MEDS: APIXABAN 5 MG TABLET PO ONE (18:25)
[2023-11-27] MEDS ORDERED: NON-FORMULARY MEDICATION (Apixaban [Eliquis] 5 mg (74 tabs) tablets,dose pack) PO SCH (21:00)
[2023-11-27] MEDS: DOXYCYCLINE HYCLATE 100 MG in DEXTROSE 5% MINI-B 100 ML IV SCH (22:00)
[2023-11-27] MEDS: APIXABAN 5 MG TABLET PO SCH (22:00)
[2023-11-27] MEDS: hydrOXYzine HCl 10 MG TAB PO SCH (22:01)
[2023-11-27] MEDS: PRAZOSIN HCL 1 MG CAP PO SCH (22:02)
[2023-11-27] MEDS: ACETAMINOPHEN 325 MG TAB PO PRN (22:14)
[2023-11-27] MEDS: LIDOCAINE 5% 1 PATCH TD SCH (22:29)
[2023-11-27] MEDS: GABAPENTIN 100 MG CAP PO SCH (22:29)
[2023-11-27] MEDS: CEFEPIME 2000MG 2,000 MG/20 ML SYR IV SCH (22:30)
--- NOTE | 2023-11-27 23:00 | Electrocardiogram Report ---
Test Reason : Blood Pressure : */* mmHG Vent. Rate : 94 BPM Atrial Rate : 94 BPM P-R Int : 164 ms QRS Dur : 98 ms QT Int : 380 ms P-R-T Axes : 59 38 9 degrees QTcB Int : 476 ms Normal sinus rhythm Nonspecific T wave abnormality Prolonged QT Abnormal ECG When compared with ECG of 04-Oct-2023 13:18, No significant change was found Confirmed by Matt Chambers ([id number]) on 11/27/2023 10:59:32 PM Referred By: REFERRED SELF Confirmed By: Matt Chambers
[2023-11-28 06:18] LABS: Hematocrit (blood only) 38.6 % (42.0-52.0); Hemoglobin 13.7 g/dl (14.0-18.0); Mean Corpuscular Hemoglobin 27.7 pg (25.0-34.0); Mean Corpuscular Hgb Conc 35.5 g/dL (32.0-36.0); Mean Platelet Volume 9.3 fL (9.4-12.4); Platelet Count 191 K/uL (130-400); RDW Standard Deviation 36.8 fL (36.4-46.3); Red Blood Count 4.95 M/uL (4.70-6.10); White Blood Count 4.62 K/ul (4.8-10.8)
[2023-11-28 06:44] LABS: Calcium 9.3 mg/dl (8.6-10.3); Creatinine Clr Calc Pharmacy 114.7 ml/min; Magnesium 1.9 mg/dl (1.7-2.4); Phosphorus 3.6 mg/dl (2.5-4.9); Potassium 3.6 mmol/L (3.5-5.1)
[2023-11-28] MEDS: SERTRALINE HCL 50 MG TABLET PO SCH (08:10)
--- NOTE | 2023-11-28 15:08 | Hospitalist Progress Note ---
Date of Service November 28, 2023 Assessment & Plan (1) History of pulmonary embolism: (2) HIV (human immunodeficiency virus infection): (3) Schizoaffective disorder: (4) Depression with suicidal ideation: (5) PNA (pneumonia): (6) Sickle cell anemia: Plan Mr. Jurado is a 38 year old AA M that presents to the ED with SOB that has been worsening over the past few days. He denies fever and chills. Reports orthopnea. Reports that his SOB feels similar to the symptoms that he had with his PE in October, with pain on the right side of his chest. Was recently admitted with a PE 10/03-10/06 and was sent home on PO Eliquis. He, unfortunately, did not follow up with his PCP and stopped taking his Eliquis; last dose of Eliquis approximately 3 weeks ago. Reports that the pain is worse with deep bal ths. Right Lower Lobe Pneumonia Patient presented with shortness of breath for past few days and pleuritic chest pain Chest CTA: Limited study as above. No central pulmonary emboli identified. Moderate right and small left pleural effusions. Right lower lobe consolidation suggestive of pneumonia. Hepatosplenomegaly with hepatic steatosis. Biofire and MRSA nares negative Procal negative Continue on cefepime and doxycyline obtain sputum culture Discussed importance of following up with PCP and repeating CT chest in 8 weeks to ensure resolution of pleural effusion, patient verbalized understanding. History of PE: Last admission 10/03-10/06 dx with PE Sent home on PO Eliquis; did not attend f/u with PCP and stopped taking Eliquis after he ran out Last dose of Eliquis approximately 3 weeks ago Chest CTA today negative for PE Restarted Eliquis Hypokalemia Serum potassium 3.2; replaced with 40 p.o. Monitor HIV receives Cabenuva injection monthly Schizoaffective disorder Takes Lybalvi, prazosin (for PTSD nightmares) and sertraline; continue Follows with Outpatient Psych Sickle Cell Trait follows [facility] hematology on a yearly basis; reports it has been > 1 year since his visit Disposition: PCP: Dr. Henley May Code Status: FULL CODE Admit to med/tele VTE Prophylaxis: Eliquis Please note the above document was generated using voice recognition software. It may contain grammatical, syntax or spelling errors. Any formal questions or concerns about the content, text or information contained within the body of this dictation should be directly addressed to the provider for clarification Admission and Anticipated Discharge Date Admission Date: November 27, 2023 Subjective Patient seen and examined at bedside. Is lying on the bed comfortably; not in distress Reports of fatigue and tiredness Afebrile and vital signs are stable He reports pleuritic chest pain on deep breathing on the right side Review of Systems Review of Systems: All systems reviewed & are unremarkable except as noted in Subjective Physical Exam Physical Exam: Constitutional: Alert oriented x 3; not in distress. Respiratory: Decreased breath sound on right lower lung field Cardiovascular: RRR, no murmur, no edema Vessels: no JVD or carotid bruit Chest: normal inspection of chest Abdomen: normal bowel sounds, soft, nontender, no hepatosplenomegaly Musculoskeletal: no cyanosis or clubbing, extremities motor strength 5/5 Skin: no rashes, warm and dry normal turgor Neurologic: PERRL, EOMI, accommodation nl, no face palsy, no dysarthria CN's II- XI intact bilaterally and moves all extremities Psychiatric: A+Ox3, euthymic affect Results & Data Results & Data Vital Signs (Past 12 Hours) Vital Signs Temp Pulse Pulse Resp BP Pulse Ox O2 Del Method 11/28/23 11:54 37.1 C 87 16 113/70 92 Room Air 11/28/23 07:59 36.9 C 85 12 129/78 92 Room Air 11/28/23 07:21 94 H 11/28/23 07:00 Room Air 11/28/23 03:09 36.9 C 84 16 122/82 93 Room Air (2) HIV (human immunodeficiency virus infection) HIV symptom status: unspecified Qualified Code(s): B20 - Human immunodeficiency virus [HIV] disease (3) Schizoaffective disorder Schizoaffective disorder type: depressive Qualified Code(s): F25.1 - Schizoaffective disorder, depressive type
[2023-11-28 19:59] VITALS: RESP 18
[2023-11-28] MEDS: oxyCODONE HCL IR 5 MG TAB (IMMEDIATE RELEASE) PO STA (23:40)
[2023-11-29 06:52] LABS: Hematocrit (blood only) 40.1 % (42.0-52.0); Hemoglobin 14.1 g/dl (14.0-18.0); Mean Corpuscular Hemoglobin 27.6 pg (25.0-34.0); Mean Corpuscular Hgb Conc 35.2 g/dL (32.0-36.0); Mean Corpuscular Volume 78.6 fL (80.0-100.0); Mean Platelet Volume 9.1 fL (9.4-12.4); Platelet Count 203 K/uL (130-400); RDW Coefficient of Variation 12.8 % (11.5-14.5); RDW Standard Deviation 36.7 fL (36.4-46.3); White Blood Count 4.79 K/ul (4.8-10.8)
[2023-11-29 07:02] LABS: BUN Creatinine Ratio 20.5 (10-20); Calcium 9.3 mg/dl (8.6-10.3); Creatinine Clr Calc Pharmacy 121.6 ml/min; Potassium 3.5 mmol/L (3.5-5.1)
[2023-11-29 07:07] LABS: Troponin I High Sensitivity 2.4 pg/ml (0-20)
[2023-11-29 11:46] VITALS: BP 117/77; PULSE 90; TEMP 97.9; O2SAT 94
--- NOTE | 2023-11-29 14:54 | Discharge Summary ---
Date of Service November 29, 2023 Admission HPI Per Admitting Provider Mr. Jurado is a 38 year old Male that presents to the ED with SOB that has been worsening over the past few days. He denies fever and chills. Reports orthopnea. Reports that his SOB feels similar to the symptoms that he had with his PE in October, with pain on the right side of his chest. Was recently admitted with a PE and was sent home on PO Eliquis. He, unfortunately, did not follow up with his PCP and stopped taking his Eliquis; last dose of Eliquis approximately 3 weeks ago. Reports that the pain is worse with deep breaths. Explained the importance of continuation of anticoagulation post pulmonary embolism x 3 months. Additional PMH includes: HIV+, Sickle Cell trait, Depression with SI, Last IVDA was years ago. Most recent ECHO 10/05/23 mild concentric LVH, EF 55-60%, No valvular disease. CXR today shows moderate right and small left pleural effusions with RLL consolidation suggestive of PNA; additional shows hepatosplenomegaly. No leukocytosis, mild hypokalemia 3.2, T. bili 1.5, no transaminitis, troponin negative; otherwise labs unremarkable. Denies tobacco or alcohol use. Last IVDA was years ago. Has a medical marijuana card and vapes with his last vaping a few days ago. Patient denies fever, chills, ASHBY, dizziness, chest pain, palpitations, hematuria, hematochezia, abdominal pain or tenderness, N/V/D, recent falls or trauma. Pt sitting upright in his hospital bed in no apparent distress. 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 in the room, name Fabiana. Lungs decreased to auscultation, no crepitus on right side of chest, pain is reproducible with palpation. No signs of trauma. Denies current thoughts of harming himself or others. He states that at nighttime it is helpful for him to illuminate visual and auditory hallucinations with having music on which he uses his cell phone for. Pt will be admitted for further evaluation and management of his symptoms of PNA with continuation of IV abx, replace electrolytes, obtain sputum culture and restart him on Eliquis. Please see A/P for further details. Admission Exam Per Admitting Provider Neuro: AAOx4, PERRLA, no aphagia, memory changes, CNII-XII grossly intact HEENT: head normocephalic, moist mucus membranes CV: S1/S2, (-) M/G/R, (-) edema, cap refill < 3 seconds Resp: Lungs CTA in all gonzales. On RA (-) crepitus GI: Abdomen S/NT/ND, Ax4 bowel sounds, (-) CVA tenderness Musculoskeletal: 5/5 B/L UE strength, 5/5 B/L LE strength. No gait disturbance Skin: (-) rashes , (-) erythema. Psych: euthymic mood Principal Diagnosis Right Lower Lobe Pneumonia Discharge Data Allergies Allergy/AdvReac Type Severity Reaction Status Date / Time brexpiprazole Allergy Unknown ON MED LIST Unverified 11/27/23 12:05 quetiapine [From Seroquel] Allergy Unknown ON MED LIST Verified 11/27/23 12:05 trazodone Allergy Unknown ON MED LIST Verified 11/27/23 12:05 Consultations 11/27/23 14:07 ED Decision to Admit Stat Ordered Studies 11/27/23 10:36 CT angio chest PE protocol Stat Hospital Course (1) PNA (pneumonia): Plan Mr. Jurado is a 38 year old AA M that presents to the ED with SOB that has been worsening over the past few days. He denies fever and chills. Reports orthopnea. Reports that his SOB feels similar to the symptoms that he had with his PE in October, with pain on the right side of his chest. Was recently admitted with a PE 10/03-10/06 and was sent home on PO Eliquis. He, unfortunately, did not follow up with his PCP and stopped taking his Eliquis; last dose of Eliquis approximately 3 weeks ago. Right Lower Lobe Pneumonia Patient presented with shortness of breath for past few days and pleuritic chest pain Chest CTA: Limited study as above. No central pulmonary emboli identified. Moderate right and small left pleural effusions. Right lower lobe consolidation suggestive of pneumonia. Hepatosplenomegaly with hepatic steatosis. Biofire and MRSA nares negative Procal negative Was treated with IV antibiotic during the hospitalization; reported improvement in his symptoms. At discharge; placed on oral Augmentin and doxycycline to complete the antibiotic course. Discussed importance of following up with PCP and repeating CT chest in 6 to 8 weeks to ensure resolution of pleural effusion, patient verbalized understanding. History of PE: Last admission 10/03-10/06 dx with PE Sent home on PO Eliquis; did not attend f/u with PCP and stopped taking Eliquis after he ran out Last dose of Eliquis approximately 3 weeks ago Chest CTA today negative for PE Restarted Eliquis; Recommended patient to follow-up with his PCP for refills. Patient verbalized understanding. I discussed importance of compliance. Discussed risks of foregoing anticoagulation which can include respiratory failure, multiorgan and . Patient verbalized understanding. Please note the above document was generated using voice recognition software. It may contain grammatical, syntax or spelling errors. Any formal questions or concerns about the content, text or information contained within the body of this dictation should be directly addressed to the provider for clarification Total Time Total Time Spent Total Time Spent (In Minutes): 35 Total Time Includes: Examination of the Patient, Discharge Planning, Medication Reconciliation, Communication With Other Providers and Other Discharge Plan Discharge Items Patient Disposition: Home - Self-Care Reason For Visit: HYPOXIA/ PNA Discharge Diagnosis: Pneumonia Activity: Resume your previous activity Non-emergency contact: Primary Care Provider Call non-emergency contact if: you have any medication questions and your symptoms worsen Follow-up/Referrals: Kale Vazquez MD [Primary Care Provider] - (Date & Time 12/05/2023 12:40 PM Provider Kale Vazquez MD [facility] ) Diet: Regular Addtl Attending Provider Instructions: You were admitted to the hospital with pneumonia and pleural effusion( fluids in pleural cavity); you are treated with antibiotic during this hospitalization. For the discharge, you are prescribed Augmentin and doxycycline to be taken for 5 more days. Please follow-up with your primary care doctor as scheduled. You will need CT chest in 6 to 8 weeks to follow-up on pleural effusion. You will need further workup/referral to pulmonology if pleural fluid persist. You are also represcribed Eliquis. Please follow-up with your primary care doctor regarding refills. Pending Studies at Discharge: No Stand-Alone Forms: [employer], Smoking Cessation Medications and DC Order Prescriptions: New Eliquis 5 mg Tablet 5 mg PO BID Qty: 60 0RF amoxicillin-pot clavulanate 875-125 mg tablet 1 tab PO BID 5 Days Qty: 10 0RF doxycycline hyclate 100 mg tablet 100 mg PO BID 5 Days Qty: 10 0RF Continued sertraline 50 mg tablet 50 mg PO DAILY Cabenuva 400 mg/2 mL- 600 mg/2 mL Suspension,Extended Release See Rx Instructions .ROUTE .COMPLEX Rx Instructions: CABOTEGRAVIR: Inject 2 ml (400mg intramuscularly once monthly; RILPIVIRINE: Inject 2 mL (600 mg) intramuscularly once monthly acetaminophen 325 mg Tablet 650 mg PO Q4H PRN (Reason: Pain) prazosin 2 mg capsule 2 mg PO HS gabapentin 100 mg capsule 200 mg PO BID hydroxyzine HCl 10 mg tablet 10 mg PO TID Lybalvi 15-10 mg tablet 1 tab PO HS lidocaine 5 % Adhesive Patch,Medicated 1 patch transdermal HS Qty: 30 0RF Discharge Orders: Discharge Order (Routine); Ordered 11/29/23 Ordered By: Viet Kohler Admission Data Admit Date/Time: 11/27/23 14:20 Attending Provider: Viet Kohler Admit Provider: Nuris Parker Primary Care Provider: Kale Vazquez Other Providers: Nuris Parker Other Interventions: Discharge Summary Assessment (RN) Last Done: 11/29/23 13:31
== END 2023-11-29 14:56 | disposition home or self-care (01) | DRG 195 ==
LOC: ED 09:36 → SUATTDRO 14:20 → 2W 14:20